=== PATIENT | female | born 1950 | race Caucasian/White ===

== ENCOUNTER → 2016-06-24 | Outpatient (CLI) | payer OTHER ==
[~2016-06-24] MED LIST: IOPAMIDOL (ISOVUE-300) 100 ML BTL IV ONE
--- NOTE | 2016-06-24 11:34 | DX ---
Chest, Two Views - June 24, 2016, at 0938 hours History: Cervical carcinoma, pleural effusion. Comparison: Outside CT chest April 2016. Findings: Cardiac silhouette is within normal range. Residual pleuroparenchymal opacity in the left l ower lobe markedly improved since the prior study from April 2016. Resolution of previous right pl eural effusion. Scarring noted in the right upper lobe. No mediastinal shift. Impression: 1. Significant improvement with residual pleuroparenchymal opacity in the left lower lobe opacifying 30% of the left lung. 2. Resolution of right pleural effusion. 3. Recommend follow up until clear.
--- NOTE | 2016-06-24 12:31 | CT ---
CT Scan of the Abdomen and Pelvis (With Contrast) at 1008 hours History: Cervical carcinoma with metastasis status post chemotherapy and surgery. Comparison: CT April 2016 from outside institution. Technique: Axial computed tomographic images of the abdomen and pelvis were obtained with the unevent ful intravenous administration of 80 mL Isovue-300 contrast. Additional oral contrast. Dose reduction techniques were utilized. CT Abdomen Findings: Lung bases: Significant decrease in size of previous left pleural effusion, with residual complex lef t base pleural effusion measuring 8.4 x 4 cm with thick wall, probably representing a loculated resid ual effusion. Left lower lobe opacity representing atelectasis or pneumonitis. Resolution of previous right pleural effusion at the lung base.. Liver: Two right subdiaphragmatic cystic foci, which appear new measuring 11 x 8 mm, on image 45 seri es 3, which may represent loculated fluid. No definite hepatic metastasis. A small amount of ascites around the right anterior aspect of the liver.. Biliary system: No obstruction. Spleen: Normal. Pancreas: Normal. Adrenals: Normal. Kidneys: No obstruction or solid masses.. Abdominal Aorta: Mild atherosclerotic abdominal aorta without aneurysm. Oral contrast in the stomach and small bowel. Moderate stool in the colon. No pneumoperitoneum. Small amount of ascites in the right paracolic gutter. A few mesenteric lymph nodes measuring up to [address] Pelvis Findings: In the left side of the pelvis, there are two cystic lesions, with the largest la terally measuring 40 x 30 mm, previously measuring 40 x 35 mm, slightly smaller. In the left side of the pelvis medially, there is a second fluid collection, also on image 183 of series 3, measuring 20 x 20 mm, previously measuring 25 x 25 mm. Previous study demonstrated a third cystic lesion more infe riorly in the left side of the pelvis, which is no longer identified. No significant pelvic adenopath y. No destructive osseous lesions. Impression: 1. Interval improvement with decrease in size of left pleural effusion, now demonstrating a residual loculated left lower lobe posterior pleural effusion measuring 8.4 x 4 cm with adjacent left lower lo be atelectasis or pneumonitis. 2. Resolution of previous right pleural effusion. 3. Small amount of residual ascites in the right side of the abdomen. 4. Two cystic mesenteric lesions in the left side of the pelvis, which appears smaller since April 2016, probably representing slight improvement in mesenteric carcinomatosis versus loculated postsur gical hematoma or seroma. 5. No new abdominal or pelvic metastasis. 6. Mild constipation without bowel obstruction.
== END ==
LOC: FIMAGING 07:59
DX: Z85.41 Personal history of malignant neoplasm of cervix uteri (principal); J90 Pleural effusion, not elsewhere classified; R91.8 Other nonspecific abnormal finding of lung field; R93.5 Abnormal findings on diagnostic imaging of other abdominal regions, including retroperitoneum; K59.00 Constipation, unspecified; J98.11 Atelectasis
CPT/HCPCS: 71020; 74177; Q9967

== ENCOUNTER → 2016-09-24 | Outpatient (CLI) | payer OTHER | LOC: CIMAGING 08:49 | DX: R18.8 Other ascites (principal); Z85.41 Personal history of malignant neoplasm of cervix uteri | CPT/HCPCS: 76700-PO ==

== ENCOUNTER → 2016-10-07 | Outpatient (CLI) | payer OTHER ==
[~2016-10-07] MED LIST changes: -IOPAMIDOL (ISOVUE-300) 100 ML BTL IV ONE; +IOPAMIDOL (ISOVUE-300) 100 ML BTL ONE
== END ==
LOC: FIMAGING 11:06
DX: C80.0 Disseminated malignant neoplasm, unspecified (principal); R18.8 Other ascites; R10.12 Left upper quadrant pain; Z85.41 Personal history of malignant neoplasm of cervix uteri; Z85.43 Personal history of malignant neoplasm of ovary
CPT/HCPCS: 74177; Q9967

== ENCOUNTER → 2016-10-08 | Outpatient (CLI) | payer OTHER ==
[~2016-10-08] MED LIST changes: -IOPAMIDOL (ISOVUE-300) 100 ML BTL ONE; +LIDOCAINE 1% 30 ML SDV ONE; +NA BICARBONATE 50 MEQ/50 ML VIAL ONE
[2016-10-08 17:14] LABS: GLUCOSE, PERITONEAL FLUID 51 mg/dL (55-113)
== END ==
LOC: FIMAGING 14:10
PROVIDERS: ATTEND Radiology Diagnostic Radiology
PROC: 0W9F3ZZ Drainage of Abdominal Wall, Percutaneous Approach (ICD-10-PCS; principal; 2016-10-08)
DX: R18.0 Malignant ascites (principal); C53.9 Malignant neoplasm of cervix uteri, unspecified; C79.9 Secondary malignant neoplasm of unspecified site

== ENCOUNTER → 2016-10-14 | Outpatient (CLI) | payer OTHER ==
[~2016-10-14] MED LIST changes: -LIDOCAINE 1% 30 ML SDV ONE; +LIDOCAINE 1% 300 MG/30 ML SDV ONE
== END ==
LOC: FIMAGING 12:26
PROC: 0W9F3ZZ Drainage of Abdominal Wall, Percutaneous Approach (ICD-10-PCS; principal; 2016-10-14)
DX: R18.0 Malignant ascites (principal); R10.9 Unspecified abdominal pain; Z85.43 Personal history of malignant neoplasm of ovary; Z85.41 Personal history of malignant neoplasm of cervix uteri

== ENCOUNTER → 2016-11-25 | Outpatient (CLI) | payer OTHER | LOC: FIMAGING 13:07 | DX: R19.07 Generalized intra-abdominal and pelvic swelling, mass and lump (principal); C56.9 Malignant neoplasm of unspecified ovary; C79.82 Secondary malignant neoplasm of genital organs ==

== ENCOUNTER → 2016-12-03 | Outpatient (CLI) | payer OTHER ==
[~2016-12-03] MED LIST changes: +IOPAMIDOL (ISOVUE-300) 100 ML BTL ONE; -LIDOCAINE 1% 300 MG/30 ML SDV ONE; -NA BICARBONATE 50 MEQ/50 ML VIAL ONE
== END ==
LOC: FIMAGING 13:44
DX: K76.9 Liver disease, unspecified (principal); R18.8 Other ascites; K59.00 Constipation, unspecified; J18.9 Pneumonia, unspecified organism; I70.0 Atherosclerosis of aorta
CPT/HCPCS: 74177; Q9967

== ENCOUNTER → 2016-12-30 | Outpatient (CLI) | payer OTHER | LOC: FIMAGING 14:34 | DX: C53.9 Malignant neoplasm of cervix uteri, unspecified (principal); C79.9 Secondary malignant neoplasm of unspecified site ==

== ENCOUNTER → 2017-01-04 | Outpatient (CLI) | payer OTHER ==
[~2017-01-04] MED LIST changes: +GENTAMICIN SULFATE IV ONE; -IOPAMIDOL (ISOVUE-300) 100 ML BTL ONE; +NS IV ONE
== END ==
LOC: FIMAGING 07:37
PROVIDERS: ATTEND Radiology Diagnostic Radiology
PROC: 0WPGX0Z Removal of Drainage Device from Peritoneal Cavity, External Approach (ICD-10-PCS; principal; 2017-01-04)
DX: Z48.03 Encounter for change or removal of drains (principal); R18.8 Other ascites

== ENCOUNTER → 2017-03-08 | Outpatient (CLI) | payer OTHER | LOC: FIMAGING 18:01 → EDSTATUS 18:02 | DX: R07.81 Pleurodynia (principal) ==

== ENCOUNTER → 2017-03-09 | Outpatient (CLI) | payer OTHER ==
[~2017-03-09] MED LIST changes: -GENTAMICIN SULFATE IV ONE; +LIDOCAINE 1% 300 MG/30 ML SDV ONE; -NS IV ONE
== END ==
LOC: FIMAGING 13:57
PROC: 0W9F30Z Drainage of Abdominal Wall with Drainage Device, Percutaneous Approach (ICD-10-PCS; principal; 2017-03-09)
DX: R18.8 Other ascites (principal)

== ENCOUNTER → 2017-03-26 | Outpatient (CLI) | payer OTHER ==
[~2017-03-26] MED LIST changes: +IOPAMIDOL (ISOVUE-300) 100 ML BTL ONE; -LIDOCAINE 1% 300 MG/30 ML SDV ONE
== END ==
LOC: CIMAGING 13:26
DX: C53.9 Malignant neoplasm of cervix uteri, unspecified (principal); R18.0 Malignant ascites; M48.56XA Collapsed vertebra, not elsewhere classified, lumbar region, initial encounter for fracture
CPT/HCPCS: 74177; Q9967

== ENCOUNTER → 2017-04-14 | Outpatient (CLI) | payer OTHER ==
[~2017-04-14] MED LIST changes: -IOPAMIDOL (ISOVUE-300) 100 ML BTL ONE; +LIDOCAINE 1% 300 MG/30 ML SDV ONE
[2017-04-14 17:28] LABS: GLUCOSE, PERITONEAL FLUID < 20 mg/dL (55-113)
[2017-04-14 18:16] LABS: LD, PERITONEAL FLUID 4596 IU/L
== END ==
LOC: FIMAGING 14:33
PROC: 0W9F3ZZ Drainage of Abdominal Wall, Percutaneous Approach (ICD-10-PCS; principal; 2017-04-14)
DX: R18.0 Malignant ascites (principal); C53.9 Malignant neoplasm of cervix uteri, unspecified

== ENCOUNTER → 2017-04-26 | Outpatient (CLI) | payer OTHER | LOC: FIMAGING 09:36 | DX: R18.0 Malignant ascites (principal); N13.39 Other hydronephrosis; C53.9 Malignant neoplasm of cervix uteri, unspecified ==

== ENCOUNTER → 2017-05-11 | Outpatient (CLI) | payer OTHER | LOC: FIMAGING 12:17 | PROC: 0W9F3ZZ Drainage of Abdominal Wall, Percutaneous Approach (ICD-10-PCS; principal; 2017-05-11) | DX: R18.0 Malignant ascites (principal); C53.9 Malignant neoplasm of cervix uteri, unspecified; M54.9 Dorsalgia, unspecified ==

== ENCOUNTER → 2017-06-03 | Outpatient (CLI) | payer OTHER | LOC: FIMAGING 14:32 | PROC: 0W9F3ZZ Drainage of Abdominal Wall, Percutaneous Approach (ICD-10-PCS; principal; 2017-06-03) | DX: R18.0 Malignant ascites (principal); C53.9 Malignant neoplasm of cervix uteri, unspecified; M54.9 Dorsalgia, unspecified ==

== ENCOUNTER → 2017-06-21 | Outpatient (CLI) | payer OTHER | LOC: FIMAGING 14:03 | PROC: 0W9G3ZZ Drainage of Peritoneal Cavity, Percutaneous Approach (ICD-10-PCS; principal; 2017-06-21) | DX: R18.8 Other ascites (principal); C53.9 Malignant neoplasm of cervix uteri, unspecified ==

== ENCOUNTER → 2017-07-12 | Outpatient (CLI) | payer OTHER | LOC: FIMAGING 14:12 | PROVIDERS: ATTEND Internal Medicine Hematology & Oncology | PROC: 0W9F3ZZ Drainage of Abdominal Wall, Percutaneous Approach (ICD-10-PCS; principal; 2017-07-12) | DX: R18.8 Other ascites (principal); C53.9 Malignant neoplasm of cervix uteri, unspecified; M54.9 Dorsalgia, unspecified ==

== ENCOUNTER → 2017-07-27 | Outpatient (CLI) | payer OTHER | LOC: FIMAGING 14:34 | PROVIDERS: ATTEND Physician Assistant | PROC: 0W9F3ZZ Drainage of Abdominal Wall, Percutaneous Approach (ICD-10-PCS; principal; 2017-07-27) | DX: R18.0 Malignant ascites (principal); C53.9 Malignant neoplasm of cervix uteri, unspecified ==

== ENCOUNTER 2017-08-09 02:03 | Observation (INO) | payer OTHER ==
--- NOTE | 2017-08-09 02:11 | EDPHY ---
H & P Time Seen by Provider: 08/09/17 02:15 HPI/ROS: HPI CHIEF COMPLAINT: Possible small bowel obstruction HISTORY OF PRESENT ILLNESS: Patient is 66 year-old female she presents emergency room with abdominal bloating abdominal distension nausea and vomiting and abdominal pain. She reports this all started on she knows the abdomen is getting more swollen. She had some generalized discomfort that is progressed. She has had nausea vomiting vomiting multiple times nonbilious nonbloody. She is due at 10:00 a.m. Tomorrow morning to have a paracentesis to remove the ascites. She gets this done every month. Has multiple Ls of fluid removed. Currently describes her pain is diffuse, crampy 10/31. Past Medical History: cervical cancer, previous SBO, protein malnutrition, ascites Past Surgical History: Multiple abdominal surgeries. Social History: Denies drugs alcohol tobacco products Family History: Noncontributory ROS REVIEW OF SYSTEMS: A comprehensive 10 point review of systems is otherwise negative aside from elements mentioned in the history of present illness. Exam Constitutional appears well nontoxic no acute distress triage nursing summary reviewed, vital signs reviewed, awake/alert. Eyes normal conjunctivae and sclera, EOMI, PERRLA. HENT normal inspection, atraumatic, moist mucus membranes, no epistaxis, neck supple/ no meningismus, no raccoon eyes. Respiratory clear to auscultation bilaterally, normal breath sounds, no respiratory distress, no wheezing. Cardiovascular rate normal, regular rhythm, no murmur, no edema, distal pulses normal. Gastrointestinal distended abdomen, ascites positive, fluid wave positive, mildly tender diffusely no peritoneal signs. Genitourinary no CVA tenderness. Musculoskeletal no midline vertebral tenderness, full range of motion, no calf swelling, no tenderness of extremities, no meningismus, good pulses, neurovascularly intact. Skin pink, warm, & dry, no rash, skin atraumatic. Neurologic awake, alert and oriented x 3, AAOx3, moves all 4 extremities equally, motor intact, sensory intact, CN II-XII intact, normal cerebellar, normal vision, normal speech. Psychiatric normal mood/affect. Heme/Lymph/Immune no lymphadenopathy. Differential diagnosis includes but is not limited to and in no particular order : Bowel obstruction, SBP, appendicitis, gallbladder disease, diverticulitis, colitis, enteritis, perforated viscus, gastritis, GERD, esophagitis, urinary tract infection, pyelonephritis, kidney stones, ascites Medical Decision Making: Plan for this patient IV establishment blood draw, check white count, KUB of the abdomen rule out abnormal bowel gas pattern, may need to proceed with CT scan abdomen pelvis with IV contrast, IV Dilaudid for pain control IV Zofran nausea, IV fluids. Re-evaluate. Re-evaluation: KUB reviewed. No evidence of abnormal bowel gas pattern. Will proceed with CT abdomen pelvis with IV contrast. Rule out SBO. CT scan abdomen pelvis with IV contrast reviewed. This shows rather large amount of ascites. Loculated. He does have extrinsic compression on the bowels. No actual SBO. Her most likely cause of nausea vomiting abdominal distention has significant ascites. She is due for paracentesis at 10:00 a.m.. Patient be admitted to the hospitalist service for observation pain control IV fluids and further care of her Ascities. Spoke with Hospalist Dr. Garcia, Agrees to admit. Source: Patient - Medical/Surgical History Hx Asthma: No Hx Chronic Respiratory Disease: No Hx Diabetes: No Hx Cardiac Disease: No Hx Renal Disease: No Hx Cirrhosis: No Hx Alcoholism: No Hx HIV/AIDS: No Hx Splenectomy or Spleen Trauma: No Other PMH: ovarian ca. acities. tonsils - Social History Smoking Status: Never smoked Constitutional: Initial Vital Signs Temperature (C) 36.4 C 08/09/17 02:10 Heart Rate 91 08/09/17 02:10 Respiratory Rate 18 08/09/17 02:10 Blood Pressure 151/105 H 08/09/17 02:10 O2 Sat (%) 98 08/09/17 02:10 O2 Delivery Mode Room Air Allergies/Adverse Reactions: Sulfa (Sulfonamide Antibiotics) Allergy (Severe, Verified 02/23/16 21:59) Rash Home Medications: Medication Instructions Recorded Thyroid,Pork [Westhroid] 32.5 mg PO DAILY 02/23/16 Progesterone Cream 08/09/17 Supliments 08/09/17 Medical Decision Making - Data Points Laboratory Results: Laboratory Results 08/09/17 02:35 08/09/17 02:35 08/09/17 08/09/17 08/09/17 02:35 02:35 02:35 WBC 12.74 10^3/uL H 10^3/uL (3.80-9.50) RBC 4.66 10^6/uL 10^6/uL (4.18-5.33) Hgb 14.3 g/dL g/dL (12.6-16.3) Hct 41.6 % % (38.0-47.0) MCV 89.3 fL fL (81.5-99.8) MCH 30.7 pg pg (27.9-34.1) MCHC 34.4 g/dL g/dL (32.4-36.7) RDW 13.0 % % (11.5-15.2) Plt Count 437 10^3/uL H 10^3/uL (150-400) MPV 9.5 fL fL (8.7-11.7) Neut % (Auto) 86.9 % H % (39.3-74.2) Lymph % (Auto) 8.0 % L % (15.0-45.0) Gibson % (Auto) 4.6 % % (4.5-13.0) Eos % (Auto) 0.0 % L % (0.6-7.6) Baso % (Auto) 0.2 % L % (0.3-1.7) Nucleat RBC Rel Count 0.0 % % (0.0-0.2) Absolute Neuts (auto) 11.06 10^3/uL H 10^3/uL (1.70-6.50) Absolute Lymphs (auto) 1.02 10^3/uL 10^3/uL (1.00-3.00) Absolute Monos (auto) 0.59 10^3/uL 10^3/uL (0.30-0.80) Absolute Eos (auto) 0.00 10^3/uL L 10^3/uL (0.03-0.40) Absolute Basos (auto) 0.03 10^3/uL 10^3/uL (0.02-0.10) Absolute Nucleated RBC 0.00 10^3/uL 10^3/uL (0-0.01) Immature Gran % 0.3 % % (0.0-1.1) Immature Gran # 0.04 10^3/uL 10^3/uL (0.00-0.10) PT 15.9 SEC H SEC (12.0-15.0) INR 1.25 H (0.83-1.16) APTT 30.4 SEC SEC (23.0-38.0) VBG Lactic Acid Sodium 132 mEq/L L mEq/L (135-145) Potassium 4.2 mEq/L mEq/L (3.5-5.2) Chloride 99 mEq/L mEq/L (97-110) Carbon Dioxide 16 mEq/l L mEq/l (22-31) Anion Gap 17 mEq/L H mEq/L (8-16) BUN 19 mg/dL mg/dL (7-23) Creatinine 0.6 mg/dL mg/dL (0.6-1.0) Estimated GFR > 60 Glucose 113 mg/dL H mg/dL (70-100) Calcium 8.3 mg/dL L mg/dL (8.5-10.4) Total Bilirubin 1.1 mg/dL mg/dL (0.1-1.4) Conjugated Bilirubin 0.5 mg/dL mg/dL (0.0-0.5) Unconjugated Bilirubin 0.6 mg/dL mg/dL (0.0-1.1) AST 37 IU/L IU/L (14-46) ALT 37 IU/L IU/L (9-52) Alkaline Phosphatase 155 IU/L H IU/L (38-126) Total Protein 6.4 g/dL g/dL (6.3-8.2) Albumin 3.4 g/dL L g/dL (3.5-5.0) Lipase 36 IU/L IU/L (23-300) 08/09/17 02:35 WBC RBC Hgb Hct MCV MCH MCHC RDW Plt Count MPV Neut % (Auto) Lymph % (Auto) Gibson % (Auto) Eos % (Auto) Baso % (Auto) Nucleat RBC Rel Count Absolute Neuts (auto) Absolute Lymphs (auto) Absolute Monos (auto) Absolute Eos (auto) Absolute Basos (auto) Absolute Nucleated RBC Immature Gran % Immature Gran # PT INR APTT VBG Lactic Acid 2.6 mmol/L H mmol/L (0.7-2.1) Sodium Potassium Chloride Carbon Dioxide Anion Gap BUN Creatinine Estimated GFR Glucose Calcium Total Bilirubin Conjugated Bilirubin Unconjugated Bilirubin AST ALT Alkaline Phosphatase Total Protein Albumin Lipase Medications Given: Discontinued Medications Hydromorphone HCl (Dilaudid) 0.5 mg IVP EDNOW ONE Stop: 08/09/17 02:16 Last Admin: 08/09/17 03:10 Dose: 0.25 mg Sodium Chloride (Ns) 1,000 mls @ 0 mls/hr IV EDNOW ONE; Wide Open PRN Reason: Protocol Stop: 08/09/17 02:16 Last Admin: 08/09/17 02:46 Dose: 1,000 mls Ondansetron HCl (Zofran) 4 mg IVP EDNOW ONE Stop: 08/09/17 02:16 Last Admin: 08/09/17 02:44 Dose: 4 mg Departure - Departure Disposition: [facility] Inpatient Acute Clinical Impression: Ascites Qualifiers: Ascites type: malignant Qualified Code(s): R18.0 - Malignant ascites Nausea and vomiting Qualifiers: Vomiting type: unspecified Vomiting Intractability: non-intractable Qualified Code(s): R11.2 - Nausea with vomiting, unspecified Condition: Fair Referrals: NONE *PRIMARY CARE P,. [Primary Care Provider] - As per Instructions
[2017-08-09] MEDS ORDERED: NS 1,000 ML IV ONE (02:15)
[2017-08-09] MEDS ORDERED: HYDROmorphONE/DILAUDID 2 MG/ML INJ IVP ONE (02:15)
[2017-08-09] MEDS ORDERED: ONDANSETRON 4 MG/2 ML VIAL IVP ONE (02:15)
[2017-08-09 02:43] LABS: PLATELET COUNT 437 10^3/uL (150-400)
[2017-08-09] MEDS ORDERED: IOPAMIDOL (ISOVUE-300) 100 ML BTL ONE (03:08)
[2017-08-09 03:15] LABS: INR 1.25 (0.83-1.16); PROTIME(PATIENT) 15.9 SEC (12.0-15.0)
[2017-08-09] MEDS ORDERED: ONDANSETRON DISINTEGRATING 4 MG TAB PO PRN (03:49)
[2017-08-09] MEDS ORDERED: ACETAMINOPHEN 325 MG TAB PO PRN (03:49)
[2017-08-09] MEDS ORDERED: ONDANSETRON 4 MG/2 ML VIAL IVP PRN (03:49)
[2017-08-09] MEDS ORDERED: PROMETHAZINE HCL 25 MG/ML INJ IVP PRN (03:49)
--- NOTE | 2017-08-09 05:04 | PDGENHP ---
History and Physical - Chief Complaint Abdominal pain - History of Present Illness 66 yo F w/ hx of cervical CA presents with abdominal pain. Patient has hx of advanced disease with extensive intra-abdominal spread. She has paracentesis q2- 3 weeks to address malignant ascites. She has her next paracentesis scheduled for 10 AM today. Early this morning, however, she developed severe abdominal pain with nausea so she came to the ED. She describes this pain as different from prior episode and more similar to a prior SBO she had. CT in the ED notable for loculated ascites with extrinsic compression of the bowel, which is likely explanatory of symptoms. Patient is being admitted for pain control and paracentesis. History Information - Allergies/Home Medication List Allergies/Adverse Reactions: Sulfa (Sulfonamide Antibiotics) Allergy (Severe, Verified 02/23/16 21:59) Rash Home Medications: Thyroid,Pork [Westhroid] 32.5 mg PO DAILY 02/23/16 [Last Taken 02/23/16] Progesterone Cream 08/09/17 [Last Taken Unknown] Supliments 08/09/17 [Last Taken Unknown] I have personally reviewed and updated: family history, medical history - Past Medical History cancer - Family History Positive for: cancer (Extensive family hx of cancer) - Social History Smoking Status: Never smoked Review of Systems Review of Systems: ROS: 10pt was reviewed & negative except for what was stated in HPI & below Physical Exam Physical Exam: Temp Pulse Resp BP Pulse Ox 36.4 C 91 18 151/105 H 98 08/09/17 02:10 08/09/17 02:10 08/09/17 02:10 08/09/17 02:10 08/09/17 02:10 Constitutional: no apparent distress, not in pain, chronically ill appearing Eyes: PERRL, EOMI Ears, Nose, Mouth, Throat: moist mucous membranes, no oral mucosal ulcers Cardiovascular: regular rate and rhythym, no murmur, rub, or gallop Respiratory: no respiratory distress, clear to auscultation Gastrointestinal: distension, No tenderness, No guarding, No rebound Skin: warm, normal color Musculoskeletal: full muscle strength, no muscle tenderness Neurologic: AAOx3, CN II-XII Intact Psychiatric: interacting appropriately, not anxious Lab Data & Imaging Review 08/09/17 02:35 08/09/17 02:35 WBC 12.74 10^3/uL (3.80-9.50) H 08/09/17 02:35 RBC 4.66 10^6/uL (4.18-5.33) 08/09/17 02:35 Hgb 14.3 g/dL (12.6-16.3) 08/09/17 02:35 Hct 41.6 % (38.0-47.0) 08/09/17 02:35 MCV 89.3 fL (81.5-99.8) 08/09/17 02:35 MCH 30.7 pg (27.9-34.1) 08/09/17 02:35 MCHC 34.4 g/dL (32.4-36.7) 08/09/17 02:35 RDW 13.0 % (11.5-15.2) 08/09/17 02:35 Plt Count 437 10^3/uL (150-400) H 08/09/17 02:35 MPV 9.5 fL (8.7-11.7) 08/09/17 02:35 Neut % (Auto) 86.9 % (39.3-74.2) H 08/09/17 02:35 Lymph % (Auto) 8.0 % (15.0-45.0) L 08/09/17 02:35 Kane % (Auto) 4.6 % (4.5-13.0) 08/09/17 02:35 Eos % (Auto) 0.0 % (0.6-7.6) L 08/09/17 02:35 Baso % (Auto) 0.2 % (0.3-1.7) L 08/09/17 02:35 Nucleat RBC Rel Count 0.0 % (0.0-0.2) 08/09/17 02:35 Absolute Neuts (auto) 11.06 10^3/uL (1.70-6.50) H 08/09/17 02:35 Absolute Lymphs (auto) 1.02 10^3/uL (1.00-3.00) 08/09/17 02:35 Absolute Monos (auto) 0.59 10^3/uL (0.30-0.80) 08/09/17 02:35 Absolute Eos (auto) 0.00 10^3/uL (0.03-0.40) L 08/09/17 02:35 Absolute Basos (auto) 0.03 10^3/uL (0.02-0.10) 08/09/17 02:35 Absolute Nucleated RBC 0.00 10^3/uL (0-0.01) 08/09/17 02:35 Immature Gran % 0.3 % (0.0-1.1) 08/09/17 02:35 Immature Gran # 0.04 10^3/uL (0.00-0.10) 08/09/17 02:35 PT 15.9 SEC (12.0-15.0) H 08/09/17 02:35 INR 1.25 (0.83-1.16) H 08/09/17 02:35 APTT 30.4 SEC (23.0-38.0) 08/09/17 02:35 VBG Lactic Acid 2.6 mmol/L (0.7-2.1) H 08/09/17 02:35 Sodium 132 mEq/L (135-145) L 08/09/17 02:35 Potassium 4.2 mEq/L (3.5-5.2) 08/09/17 02:35 Chloride 99 mEq/L (97-110) 08/09/17 02:35 Carbon Dioxide 16 mEq/l (22-31) L 08/09/17 02:35 Anion Gap 17 mEq/L (8-16) H 08/09/17 02:35 BUN 19 mg/dL (7-23) 08/09/17 02:35 Creatinine 0.6 mg/dL (0.6-1.0) 08/09/17 02:35 Estimated GFR > 60 08/09/17 02:35 Glucose 113 mg/dL (70-100) H 08/09/17 02:35 Calcium 8.3 mg/dL (8.5-10.4) L 08/09/17 02:35 Total Bilirubin 1.1 mg/dL (0.1-1.4) 08/09/17 02:35 Conjugated Bilirubin 0.5 mg/dL (0.0-0.5) 08/09/17 02:35 Unconjugated Bilirubin 0.6 mg/dL (0.0-1.1) 08/09/17 02:35 AST 37 IU/L (14-46) 08/09/17 02:35 ALT 37 IU/L (9-52) 08/09/17 02:35 Alkaline Phosphatase 155 IU/L (38-126) H 08/09/17 02:35 Total Protein 6.4 g/dL (6.3-8.2) 08/09/17 02:35 Albumin 3.4 g/dL (3.5-5.0) L 08/09/17 02:35 Lipase 36 IU/L (23-300) 08/09/17 02:35 Imaging Review: CT A/P (prelim) Multiloculated ascites with mass effect RT hydro No danish bowel obstruction, extrinsic compression LT basilar atelectasis Called to ER @ 0340 hrs Assessment & Plan Assessment: 66 yo F w/ cervical CA presents with abdominal pain 2/2 malignant ascites. Plan: 1. Abdominal pain - Per CT, most likely due to extrinsic compression of bowel from extensive, loculated malignant ascites. Patient usually receives paracentesis on outpatient basis q2-3 weeks. She had an appointment scheduled for 10 AM but developed severe pain early this morning. - Morphine PRN for pain control - IR consult placed for paracentesis 2. Cervical CA - With extensive intra-abdominal spread and malignant ascites. She has had chemotherapy and radiation in the past with limited success. She is currently looking to enroll in a clinical trial. She also uses alternative therapies such as coffee enemas and ozone saunas. 3. Hyponatremia - Mild, likely 2/2 dehydration. 4. Lactic acidosis - Likely 2/2 volume depletion, now s/p IVF. 5. Leukocytosis - No s/s of infection; will have IR send ascitic fluid for culture just in case. Diet - Clears for now, ADAT Code - Full Ppx - SCDs noting likely procedure Dispo - Admit under observation status
[2017-08-09] MEDS ORDERED: LIDOCAINE 1% 300 MG/30 ML SDV ONE (09:47)
--- NOTE | 2017-08-09 10:47 | PDRADPN ---
Radiology Procedure Note Date of Procedure: 08/09/17 Radiologist: Adam Grossman Anesthesia: Local (Specify) Pre-op Diagnosis: malignant ascites Post-op Diagnosis: same Indication: therapeutic Procedure: paracentesis Finding(s): extensively loculated fluid Inf/Abcess present in the surg proc area at time of surgery?: No Complications: none
[2017-08-09] MEDS: oxyCODONE IR 5 MG TAB PO PRN ×2 (12:05→22:52)
[2017-08-09] MEDS: THYROID PORK 32.5 MG PO SCH (12:08)
--- NOTE | 2017-08-09 14:06 | ASMTCMCOM ---
CM Note CM Note Notes: Chart reviewed. 66 Year old female admitted via ED with abdominal pain. She has HX of cervical cancer and malignant ascites and has had multiple paracentesis's in the past. No therapies ordered at this time. CM to follow for possible needs. Date Signed: 08/09/2017 02:06 PM Electronically Signed By:Tiny Quesada RN
--- NOTE | 2017-08-09 16:32 | HOSPPROG ---
Hospitalist Progress Note Assessment/Plan: DIAGNOSES: -abdominal pain due to increasing ascites with history of ongoing malignant ascites -metastatic ovarian cancer -metabolic acidosis, resolved She has now had paracentesis of 2 pockets of here low multiloculated malignant ascites. She had fair volume removed from each pocket and there is some relief from pain but she still rating her pain at 4/10. She has no febrile symptoms. There was some bloody notice in particularly in the 1 pocket but that pocket also had 880 white blood cells. The number of white blood cells might be consistent with just having blood in the fluid compared the red blood cell count , but she does have an i predominance of neutrophils in that pocket at 79%. This seems to me unlikely to be infected but with a predominance of neutrophils like that will follow closely. She has had higher white blood cell counts in the past that were not associated with infection, but these were not neutrophil predominant fluids in the past. PLANS: -continue to titrate pain management -attempt to resume a diet see issues able to keep food and drink down -follow for any signs of fever or other signs of infection SUBJECTIVE: Patient still with pain but improved notably after her paracentesis OBJECTIVE Vitals reviewed: Stable without fever Software Lead, my review: Exam: alert oriented skin warm dry color ok resps not labored lungs clear BSs heart regular abd soft but diffusely distended and diffusely tender, no guarding or rebound, bowel sounds present limbs warm, no edema iv site ok I had metabolic panel repeated and her metabolic acidosis has now resolved Objective: Vital Signs Temp Pulse Resp BP Pulse Ox 36.5 C 77 18 106/66 95 08/09/17 16:00 08/09/17 16:00 08/09/17 16:00 08/09/17 16:00 08/09/17 16:00 Microbiology 08/09/17 10:50 Gram Stain - Final Peritoneal Fluid - Aspirate 08/09/17 10:50 Gram Stain - Final Peritoneal Fluid - Aspirate Laboratory Results 08/09/17 11:20 08/08/17 08/09/17 08/10/17 06:59 06:59 06:59 Intake Total 1000 Balance 1000 PT 15.9 SEC (12.0-15.0) H 08/09/17 02:35 INR 1.25 (0.83-1.16) H 08/09/17 02:35 ICD10 Worksheet Patient Problems: Problems Problem Status Onset Ascites Acute Nausea and vomiting Acute SBO (small bowel obstruction) Acute
[2017-08-09] MEDS ORDERED: PROGESTERONE TP SCH (21:00)
[2017-08-10 05:03] LABS: PLATELET COUNT 325 10^3/uL (150-400)
[2017-08-10] MEDS: THYROID PORK 32.5 MG PO SCH (09:49)
[2017-08-10 15:06] LABS: PLATELET COUNT 335 10^3/uL (150-400)
[2017-08-10 15:56] VITALS: BP 110/69; PULSE 80; RESP 16; TEMP 97.7; O2SAT 95
[2017-08-10] MEDS: oxyCODONE IR 5 MG TAB PO PRN (16:37)
--- NOTE | 2017-08-10 17:56 | PDDCSUM ---
Discharge Summary Discharge Summary: DISCHARGE DIAGNOSES: -diffuse abdominal pain, multifactorial -enlarging malignant ascites effusion causing abdominal pain and digestive symptoms -constipation -diffuse metastatic ovarian carcinoma -med about a acidosis, resolved -anemia of malignancy and chemotherapy, stable PROCEDURES: CT scan of abdomen and pelvis with contrast Ultrasound-guided paracentesis for 1500 mL from 1 pocket and 600 mL from from a 2nd loculated collection pocket HOSPITAL COURSE SUMMARY: This patient with longstanding ovarian carcinoma and ascites comes in the hospital with increasing abdominal bloating and pain, constipation nausea vomiting. She had increasing ascites. She has previous history of multiple loculations of malignant ascites fluid and she has had multiple paracenteses here and elsewhere. At this time she did not appear infected or septic clinically at the bedside. She underwent paracentesis of her 2 largest pocket shielding 1500 mL from 1 in 600 from the other. Each of these fluid collections was somewhat bloody, and each with white blood cells new medically consistent with what would be expected from the amount of red blood cells. 1 of the pockets did have a predominance of neutrophils but so far Gram stain is negative and cultures have not grown any organisms, she is not having fever. The patient feels quite notably better after paracentesis though still has some bloating and discomfort. She is eating and drinking well. [place] [address] is down to 7000. She has not received any antibiotics here and it is not highly suspected that she has infection. However her final culture results from the fluid cavities is pending. We are at just under 48 hr from when these fluid collections were obtained at this time. PENDING TEST RESULTS: Final reading of 48 hr cultures from peritoneal fluid MEDICATION CHANGES: Addition of p.r.n. Tramadol for pain Addition of p.r.n. Zofran for nausea FOLLOW-UP PLAN: With her oncologist within the next 1-2 weeks The patient is instructed to a seek follow-up care promptly for any fevers, inability to maintain hydration, or any other onset of concerning or intolerable pain. Greater than 35 minutes bedside and care coordination time today
== END 2017-08-10 19:50 | disposition home or self-care (01) ==
LOC: F1N 08:06
PROVIDERS: ADMIT Student in an Organized Health Care Education/Training Program; ATTEND Internal Medicine
PROC: 0W9F3ZZ Drainage of Abdominal Wall, Percutaneous Approach (ICD-10-PCS; principal; 2017-08-09)
DX: C56.9 Malignant neoplasm of unspecified ovary (principal); R18.0 Malignant ascites; E87.2 Acidosis; E87.1 Hypo-osmolality and hyponatremia; E86.9 Volume depletion, unspecified; D72.829 Elevated white blood cell count, unspecified; D64.81 Anemia due to antineoplastic chemotherapy; K59.00 Constipation, unspecified; Z85.41 Personal history of malignant neoplasm of cervix uteri; Z88.2 Allergy status to sulfonamides
CPT/HCPCS: 49083; 74018; 74177; 96361; 96374; 96375; 99285; G0378; J1170; J2405; Q9967

== ENCOUNTER → 2017-09-06 | Outpatient (CLI) | payer OTHER ==
--- NOTE | 2017-09-06 18:23 | PDRADPN ---
Radiology Procedure Note Date of Procedure: 09/06/17 Radiologist: Adam Grossman Anesthesia: Local (Specify) Pre-op Diagnosis: recurrent ascites Post-op Diagnosis: same Indication: therapeutic Procedure: bilateral paracentesis Finding(s): 2.2L total Inf/Abcess present in the surg proc area at time of surgery?: No Complications: none
== END ==
LOC: FIMAGING 09:43
PROVIDERS: ATTEND Radiology Diagnostic Radiology
PROC: BW40ZZZ Ultrasonography of Abdomen (ICD-10-PCS; principal; 2017-09-06)
PROC: 0W9G3ZZ Drainage of Peritoneal Cavity, Percutaneous Approach (ICD-10-PCS; principal; 2017-09-06)
DX: R18.8 Other ascites (principal); C53.9 Malignant neoplasm of cervix uteri, unspecified; M54.9 Dorsalgia, unspecified

== ENCOUNTER → 2017-09-14 | Outpatient (CLI) | payer OTHER | LOC: FIMAGING 14:18 | PROC: 0W9F3ZZ Drainage of Abdominal Wall, Percutaneous Approach (ICD-10-PCS; principal; 2017-09-14) | DX: R18.8 Other ascites (principal); C53.9 Malignant neoplasm of cervix uteri, unspecified; M54.9 Dorsalgia, unspecified ==

== ENCOUNTER 2017-09-19 16:38 | Inpatient (IN) | payer OTHER ==
--- NOTE | 2017-09-19 16:49 | EDPHY ---
H & P Stated Complaint: HX CANCER/ASCITIS/ABD PAIN Time Seen by Provider: 09/19/17 16:47 HPI/ROS: HPI: This is a 66-year-old female who presents with Chief Complaint: Abdominal pain, nausea, vomiting Location: GI Quality: Abdominal pain, nausea, vomiting Duration: Today Signs and Symptoms: no fever, + nausea, + vomiting, no hematemesis, no blood in stool, + abdominal bloating, no diarrhea, no back pain, no urinary symptoms, no vaginal bleeding/discharge, no indigestion, no chest pain, no shortness of breath Timing: Worsening, acute on chronic Severity: 10 out 10 Context: Patient has a history of cervical cancer, malignant ascites requiring paracentesis every 2-3 weeks presents with complaints of acute on chronic severe generalized abdominal pain associated with ascites and abdominal bloating. Patient actually came into the emergency room today because she vomited 5 times. She normally is nauseous. She has Zofran but has not used today. She smoked marijuana which helps relieve her symptoms. She was seen by her primary care provider last week and given oxycodone but this is not helping her pain. She also has fentanyl suppositories but has not used these in quite some time. Patient reports that she is scheduled for outpatient paracentesis on Wednesday. She is extremely tearful and is requesting admission for pain control and to have hers paracentesis performed earlier. Modifying Factors: See above Comment: ROS: see HPI Constitutional: No fever, no chills, no weight loss Eyes: No blurred vision Respiratory: No shortness of breath, no cough Cardiovascular: No chest pain, no palpitations Gastrointestinal: No nausea, no vomiting, no diarrhea, no hematemesis, no blood in stool Genitourinary: No dysuria, no blood in urine Extremities: No myalgias, no edema Neurologic: No weakness, no numbness Skin: No rashes, no petechiae Hematologic: No bruising, no bleeding MEDICAL/SURGICAL/SOCIAL HISTORY: Medical history: Cervical cancer, malignant ascites. Surgical history: Tonsillectomy Social history: Lives at home. Family history noncontributory. CONSTITUTIONAL: Chronically ill appearing elderly white female, awake and alert , no obvious distress HEENT: Atraumatic and normocephalic, PERRL, EOMI. Nares patent; no rhinorrhea; no nasal mucosal edema. Tympanic membranes clear. Oropharynx clear, no exudate and dry lips and mucous membranes. Airway patent. No lymphadenopathy. No meningismus. Cardiovascular: Normal S1/S2, regular rate, regular rhythm, without murmur rub or gallop. PULMONARY/CHEST: Symmetrical and nontender. Clear to auscultation bilaterally. Good air movement. No accessory muscle usage. ABDOMEN: Soft, ascites noted; 2 Band-Aids on right flank and left flank noted from prior paracentesis, nontender, no rebound, no guarding, no peritoneal signs , no masses or organomegaly. No CVAT. EXTREMITIES: 2/2 pulses, strength 5/5, no deformities, no clubbing, no cyanosis or edema. NEUROLOGICAL: no focal neuro deficits. GCS 15. SKIN: Warm and dry, pallor, no erythema. no rash. Good capillary refill. Source: Patient, Family (Significant other) Exam Limitations: No limitations - Personal History Current Tetanus/Diphtheria Vaccine: Yes - Medical/Surgical History Hx Asthma: No Hx Chronic Respiratory Disease: No Hx Diabetes: No Hx Cardiac Disease: No Hx Renal Disease: No Hx Cirrhosis: No Hx Alcoholism: No Hx HIV/AIDS: No Hx Splenectomy or Spleen Trauma: No Other PMH: ovarian ca. acities. tonsils - Social History Smoking Status: Never smoked Constitutional: Initial Vital Signs Temperature (C) 36.7 C 09/19/17 16:45 Heart Rate 83 09/19/17 16:45 Respiratory Rate 18 09/19/17 16:45 Blood Pressure 114/85 H 09/19/17 16:45 O2 Sat (%) 93 09/19/17 16:45 O2 Delivery Mode Room Air Allergies/Adverse Reactions: Sulfa (Sulfonamide Antibiotics) Allergy (Severe, Verified 09/19/17 16:44) Rash cisplatin Allergy (Verified 09/19/17 16:44) wheat Allergy (Verified 09/19/17 16:44) Rash Home Medications: Medication Instructions Recorded Thyroid,Pork [Westhroid] 32.5 mg PO DAILY 02/23/16 Cmp Progesteron Crm 300mg/Ml 0.25 ml TP HS 08/09/17 Herbals/Supplements -Info Only 1 ea PO DAILY 08/09/17 Ondansetron Odt [Zofran Odt 4 mg 4 mg PO Q4HRS PRN #30 tab 08/10/17 (*)] traMADol HCL [Tramadol HCl] 50 mg PO Q6 #40 tablet 08/10/17 Medical Decision Making ED Course/Re-evaluation: Labs, IV fluids, IV medications, CT abdomen and pelvis scan ordered Vital signs reviewed and stable. Patient given 500 cc normal saline, IV Zofran and IV morphine 1758: Labs reviewed. No leukocytosis left shift noted. Normocytic anemia noted. No signs of sepsis/coagulopathy/JOHN/electrolyte imbalance Called by radiologist who advised that patient has malignant carcinomatosis; multiple loculated fluid collections and partial small-bowel obstruction. NPO status. 1800: ED decision to consult for admission for intractable acute on chronic abdominal pain with abdominal ascites, multiple loculated fluid collection and partial small-bowel obstruction. 1835: Spoke with hospitalist, Dr. Dakwins, who kindly agrees to admit patient and provide further care. This patient was seen under the supervision of my secondary supervising physician. I evaluated care for this patient independently. Discussed this patient with Dr. Bennett who did not see the patient. Differential Diagnosis: Abdominal pain including but not limited to appendicitis, cholecystitis, gastritis and urinary tract infection. - Data Points Laboratory Results: Laboratory Results 09/19/17 17:10 09/19/17 17:34 09/19/17 09/19/17 09/19/17 17:34 17:10 17:10 WBC RBC Hgb Hct MCV MCH MCHC RDW Plt Count MPV Neut % (Auto) Lymph % (Auto) [place] % (Auto) Eos % (Auto) Baso % (Auto) Nucleat RBC Rel Count Absolute Neuts (auto) Absolute Lymphs (auto) Absolute Monos (auto) Absolute Eos (auto) Absolute Basos (auto) Absolute Nucleated RBC Immature Gran % Immature Gran # PT 14.0 SEC SEC (12.0-15.0) INR 1.06 (0.83-1.16) APTT 32.1 SEC SEC (23.0-38.0) VBG Lactic Acid 1.5 mmol/L mmol/L (0.7-2.1) Sodium 140 mEq/L mEq/L (135-145) Potassium 3.6 mEq/L mEq/L (3.5-5.2) Chloride 106 mEq/L mEq/L (97-110) Carbon Dioxide 21 mEq/l L mEq/l (22-31) Anion Gap 13 mEq/L mEq/L (8-16) BUN 17 mg/dL mg/dL (7-23) Creatinine 0.4 mg/dL L mg/dL (0.6-1.0) Estimated GFR > 60 Glucose 115 mg/dL H mg/dL (70-100) Calcium 8.1 mg/dL L mg/dL (8.5-10.4) Total Bilirubin Conjugated Bilirubin Unconjugated Bilirubin AST ALT Alkaline Phosphatase Total Protein Albumin Lipase 09/19/17 09/19/17 17:10 17:10 WBC 8.17 10^3/uL 10^3/uL (3.80-9.50) RBC 4.00 10^6/uL L 10^6/uL (4.18-5.33) Hgb 12.0 g/dL L g/dL (12.6-16.3) Hct 35.7 % L % (38.0-47.0) MCV 89.3 fL fL (81.5-99.8) MCH 30.0 pg pg (27.9-34.1) MCHC 33.6 g/dL g/dL (32.4-36.7) RDW 14.6 % % (11.5-15.2) Plt Count 480 10^3/uL H 10^3/uL (150-400) MPV 9.2 fL fL (8.7-11.7) Neut % (Auto) 89.3 % H % (39.3-74.2) Lymph % (Auto) 7.1 % L % (15.0-45.0) [place] % (Auto) 2.7 % L % (4.5-13.0) Eos % (Auto) 0.1 % L % (0.6-7.6) Baso % (Auto) 0.2 % L % (0.3-1.7) Nucleat RBC Rel Count 0.0 % % (0.0-0.2) Absolute Neuts (auto) 7.29 10^3/uL H 10^3/uL (1.70-6.50) Absolute Lymphs (auto) 0.58 10^3/uL L 10^3/uL (1.00-3.00) Absolute Monos (auto) 0.22 10^3/uL L 10^3/uL (0.30-0.80) Absolute Eos (auto) 0.01 10^3/uL L 10^3/uL (0.03-0.40) Absolute Basos (auto) 0.02 10^3/uL 10^3/uL (0.02-0.10) Absolute Nucleated RBC 0.00 10^3/uL 10^3/uL (0-0.01) Immature Gran % 0.6 % % (0.0-1.1) Immature Gran # 0.05 10^3/uL 10^3/uL (0.00-0.10) PT INR APTT VBG Lactic Acid Sodium TNP Potassium TNP Chloride TNP Carbon Dioxide TNP Anion Gap TNP BUN TNP Creatinine TNP Estimated GFR TNP Glucose TNP Calcium TNP Total Bilirubin TNP Conjugated Bilirubin TNP Unconjugated Bilirubin TNP AST TNP ALT TNP Alkaline Phosphatase TNP Total Protein TNP Albumin TNP Lipase TNP Medications Given: Discontinued Medications Morphine Sulfate (Morphine) 6 mg IVP EDNOW ONE Stop: 09/19/17 17:10 Last Admin: 09/19/17 17:17 Dose: 4 mg Ondansetron HCl (Zofran) 4 mg IVP EDNOW ONE Stop: 09/19/17 17:10 Last Admin: 09/19/17 17:16 Dose: 4 mg Departure - Departure Disposition: [facility] Acute Clinical Impression: Ascites, malignant, Intractable generalized abdominal pain, Partial small bowel obstruction Cervical cancer Qualifiers: Malignant neoplasm of cervix location: unspecified location Qualified Code(s): C53.9 - Malignant neoplasm of cervix uteri, unspecified Condition: Fair
[2017-09-19] MEDS ORDERED: ONDANSETRON 4 MG/2 ML VIAL IVP ONE (17:09)
[2017-09-19 17:17] LABS: PLATELET COUNT 480 10^3/uL (150-400)
[2017-09-19 17:25] LABS: INR 1.06 (0.83-1.16)
[2017-09-19] MEDS ORDERED: IOPAMIDOL (ISOVUE-300) 100 ML BTL ONE (17:57)
[2017-09-19] MEDS ORDERED: ONDANSETRON 4 MG/2 ML VIAL IVP PRN (19:42)
[2017-09-19] MEDS ORDERED: ACETAMINOPHEN 325 MG TAB PO PRN (19:42)
[2017-09-19] MEDS ORDERED: HYDROmorphONE/DILAUDID 6 MG/30 ML PCA IV PRN (19:44)
[2017-09-19] MEDS ORDERED: NALOXONE HCL 0.4 MG/ML INJ IVP PRN (19:44)
[2017-09-19] MEDS: NS 1,000 ML IV SCH (21:36)
--- NOTE | 2017-09-19 23:47 | PDGENHP ---
History and Physical - Chief Complaint Abdominal pain - History of Present Illness 66 yo F w/ advanced cervical CA presents with abdominal pain and vomiting. Patient has frequent abdominal pain and distention, treated with regular paracentesis. She used to get these q2-3 weeks but now has been getting para's closer to weekly. Today she developed pain worse than usual as well as several episodes of vomiting. CT scan in the ED showed partial obstruction, possibly related to loculated ascites. She feels much better now after IVF and morphine. History Information - Allergies/Home Medication List Allergies/Adverse Reactions: Sulfa (Sulfonamide Antibiotics) Allergy (Severe, Verified 09/19/17 16:44) Rash cisplatin Allergy (Verified 09/19/17 16:44) wheat Allergy (Verified 09/19/17 16:44) Rash Home Medications: Thyroid,Pork [Westhroid] 32.5 mg PO DAILY 02/23/16 [Last Taken 09/19/17] Cmp Progesteron Crm 300mg/Ml 0.25 ml TP HS 08/09/17 [Last Taken 09/19/17] traMADol HCL [Tramadol HCl] 50 mg PO Q6 PRN 09/19/17 [Last Taken Unknown] I have personally reviewed and updated: family history, medical history - Past Medical History cancer - Family History Positive for: cancer (Extensive family hx of cancer) - Social History Smoking Status: Never smoked Review of Systems Review of Systems: ROS: 10pt was reviewed & negative except for what was stated in HPI & below Physical Exam Physical Exam: Temp Pulse Resp BP Pulse Ox 36.7 C 62 16 94/56 L 95 09/19/17 19:45 09/19/17 20:00 09/19/17 19:45 09/19/17 19:45 09/19/17 20:00 Constitutional: no apparent distress, not in pain Eyes: PERRL, EOMI Ears, Nose, Mouth, Throat: moist mucous membranes, no oral mucosal ulcers Cardiovascular: regular rate and rhythym, no murmur, rub, or gallop Respiratory: no respiratory distress, no rales or rhonchi Gastrointestinal: distension, other (Hyperactive BS), No tenderness, No guarding , No rebound Skin: warm, normal color Musculoskeletal: full muscle strength, no muscle tenderness Neurologic: AAOx3, CN II-XII Intact Psychiatric: interacting appropriately, not anxious Lab Data & Imaging Review 09/19/17 17:10 09/19/17 17:34 WBC 8.17 10^3/uL (3.80-9.50) 09/19/17 17:10 RBC 4.00 10^6/uL (4.18-5.33) L 09/19/17 17:10 Hgb 12.0 g/dL (12.6-16.3) L 09/19/17 17:10 Hct 35.7 % (38.0-47.0) L 09/19/17 17:10 MCV 89.3 fL (81.5-99.8) 09/19/17 17:10 MCH 30.0 pg (27.9-34.1) 09/19/17 17:10 MCHC 33.6 g/dL (32.4-36.7) 09/19/17 17:10 RDW 14.6 % (11.5-15.2) 09/19/17 17:10 Plt Count 480 10^3/uL (150-400) H 09/19/17 17:10 MPV 9.2 fL (8.7-11.7) 09/19/17 17:10 Neut % (Auto) 89.3 % (39.3-74.2) H 09/19/17 17:10 Lymph % (Auto) 7.1 % (15.0-45.0) L 09/19/17 17:10 [place] % (Auto) 2.7 % (4.5-13.0) L 09/19/17 17:10 Eos % (Auto) 0.1 % (0.6-7.6) L 09/19/17 17:10 Baso % (Auto) 0.2 % (0.3-1.7) L 09/19/17 17:10 Nucleat RBC Rel Count 0.0 % (0.0-0.2) 09/19/17 17:10 Absolute Neuts (auto) 7.29 10^3/uL (1.70-6.50) H 09/19/17 17:10 Absolute Lymphs (auto) 0.58 10^3/uL (1.00-3.00) L 09/19/17 17:10 Absolute Monos (auto) 0.22 10^3/uL (0.30-0.80) L 09/19/17 17:10 Absolute Eos (auto) 0.01 10^3/uL (0.03-0.40) L 09/19/17 17:10 Absolute Basos (auto) 0.02 10^3/uL (0.02-0.10) 09/19/17 17:10 Absolute Nucleated RBC 0.00 10^3/uL (0-0.01) 09/19/17 17:10 Immature Gran % 0.6 % (0.0-1.1) 09/19/17 17:10 Immature Gran # 0.05 10^3/uL (0.00-0.10) 09/19/17 17:10 PT 14.0 SEC (12.0-15.0) 09/19/17 17:10 INR 1.06 (0.83-1.16) 09/19/17 17:10 APTT 32.1 SEC (23.0-38.0) 09/19/17 17:10 VBG Lactic Acid 1.5 mmol/L (0.7-2.1) 09/19/17 17:10 Sodium 140 mEq/L (135-145) 09/19/17 17:34 Potassium 3.6 mEq/L (3.5-5.2) 09/19/17 17:34 Chloride 106 mEq/L (97-110) 09/19/17 17:34 Carbon Dioxide 21 mEq/l (22-31) L 09/19/17 17:34 Anion Gap 13 mEq/L (8-16) 09/19/17 17:34 BUN 17 mg/dL (7-23) 09/19/17 17:34 Creatinine 0.4 mg/dL (0.6-1.0) L 09/19/17 17:34 Estimated GFR > 60 09/19/17 17:34 Glucose 115 mg/dL (70-100) H 09/19/17 17:34 Calcium 8.1 mg/dL (8.5-10.4) L 09/19/17 17:34 Total Bilirubin TNP 09/19/17 17:10 Conjugated Bilirubin TNP 09/19/17 17:10 Unconjugated Bilirubin TNP 09/19/17 17:10 AST TNP 09/19/17 17:10 ALT TNP 09/19/17 17:10 Alkaline Phosphatase TNP 09/19/17 17:10 Total Protein TNP 09/19/17 17:10 Albumin TNP 09/19/17 17:10 Lipase TNP 09/19/17 17:10 Imaging Review: Imaging Impressions Abdomen CT 09/19/17 17:09 Impression: 1. Findings suggesting peritoneal mesenteric carcinomatosis. Multiple loculated fluid collections in the abdomen and pelvis compatible with loculated ascites. These loculated fluid collections have been drained with ultrasound-guided paracentesis previously, which could explain the small amount of air and one on the right. 2. Partial small bowel obstruction with distended loops of jejunum with air- fluid levels and fluid in the stomach. 3. Other chronic findings, as above. Results called and discussed with Rose Bethea PA-C on September 19, 2017 at 1839 hours. Assessment & Plan Assessment: 66 yo F w/ cervical CA p/w acute on chronic abdominal pain and vomiting likely related to known loculated ascites and new partial SBO. Plan: 1. Abdominal pain, vomiting - Likely related to partial SBO, which is probably related to pressure from loculated ascites. Now feeling much better after IVF and pain medication. - Dilaudid QC ANALYST overnight - Clear liquid diet, ADAT 2. Loculated ascites - Known issue for this patient; she receives regular paracentesis for symptom management. Her next paracentesis was planned for Wednesday. - Will request IR angelina, although patient does not know if she will have time for this prior to procedure in [place] at 12:30 PM tomorrow 3. Cervical CA - Advanced, metastatic disease. Diet - Clears, ADAT Code - Full Ppx - LMWH Dispo - Admit under observation status
[2017-09-20] MEDS: NS 1,000 ML IV SCH (04:45)
[2017-09-20 05:05] LABS: PLATELET COUNT 410 10^3/uL (150-400)
[2017-09-20] MEDS ORDERED: ENOXAPARIN 40 MG/0.4 ML SYR SC SCH (09:00)
[2017-09-20] MEDS ORDERED: traMADol 50 MG TAB PO PRN (09:50)
--- NOTE | 2017-09-20 11:09 | PDMN ---
Medical Necessity Medical necessity: Patient meets inpatient criteria per physician note and [facility] [place] -210 Intestinal Obstruction - 2 days - (presents with abd pain and vomiting; CT shows partial SBO, possibly related to loculated ascites; history of metastatic cervical cancer requiring more freq paracentesis of malignant ascites; anticipated LOS > 2 midnights for pain control, IV hydration/initially NPO for bowel rest, planned IR-guided paracentesis.)
--- NOTE | 2017-09-20 11:17 | HOSPPROG ---
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 * Loculated ascites -paracentesis today -hopeful that helps the partial SBO * Cervical cancer with peritoneal carcinomatosis -d/w Dr Montoya - oncology to consult Subjective: No flatus for over 24 hours but did have BM yesterday Objective: Vital Signs Temp Pulse Resp BP Pulse Ox 36.4 C 65 14 95/59 L 96 09/20/17 07:50 09/20/17 10:00 09/20/17 07:50 09/20/17 07:50 09/20/17 10:00 Laboratory Results 09/20/17 04:28 09/20/17 04:28 09/19/17 09/20/17 09/21/17 05:59 05:59 05:59 Intake Total 1250.2 Output Total 200 Balance 1050.2 PT 14.0 SEC (12.0-15.0) 09/19/17 17:10 INR 1.06 (0.83-1.16) 09/19/17 17:10 CT scan - loculated ascites with partial SBO - Time Spent With Patient Time Spent with Patient: greater than 35 minutes Time Spent with Patient: Greater than 35 minutes spent on this patients care, greater than 50% of time spent counseling, educating, and coordinating care regarding the above mentioned plan. - Physical Exam Constitutional: no apparent distress, appears nourished, not in pain Cardiovascular: regular rate and rhythym, no murmur, rub, or gallop Respiratory: no respiratory distress, no rales or rhonchi, clear to auscultation Gastrointestinal: soft, non-tender abdomen, ascites, distension, No hepatosplenomegally, No guarding, No rebound Skin: no rashes or abrasions, no fluctuance, no induration Neurologic: AAOx3, sensation intact bilaterally Psychiatric: interacting appropriately, not anxious, not encephalopathic, thought process linear ICD10 Worksheet Patient Problems: Problems Problem Status Onset Ascites, malignant Acute Cervical cancer Acute Intractable generalized abdominal pain Acute Partial small bowel obstruction Acute Ascites Acute Nausea and vomiting Acute SBO (small bowel obstruction) Acute
--- NOTE | 2017-09-20 14:32 | GCON ---
[f rep st] CONSULTATION The patient is a 66-year-old female who has had a long history of metastatic cervical carcinoma initi francky diagnosed in September of 2008. She has received multiple therapies including occasional chemotherapy but a fair amount of alternative therapy. She has been troubled recently by recurrent ascites and w as admitted last month with a partial small bowel obstruction which resolved. She presented and was admitted with abdominal pain and vomiting. She has been undergoing regular paracentesis more recentl y on a weekly basis. She was seen in the ER and a CT scan showed peritoneal mesenteric carcinomatosi s with multiple loculated fluid collections in the abdomen and pelvis. It also showed evidence of a partial small bowel obstruction with distended loops of jejunum with air-fluid levels in the stomach. She has been admitted for evaluation and treatment. PAST MEDICAL HISTORY: Significant for malignancy, hypothyroidism. REVIEW OF SYSTEMS: Negative for 10 points except as discussed above. PHYSICAL EXAMINATION: GENERAL: She is pleasant alert, thin female. VITAL SIGNS: Blood pressure 10 1/66, heart rate 59, temperature 98, O2 saturation 95%. NECK: I detect no cervical adenopathy. ASHLEE GS: Clear. CARDIAC: Unremarkable. ABDOMEN: Distended with hyperactive bowel sounds. EXTREMITIES : No edema. White count of 6.27, hemoglobin 9.4, hematocrit 28.3, platelets 410,000. Albumin is 2.3. IMPRESSION: Patient with metastatic cervical carcinoma and partial small bowel obstruction. PLANS: For paracentesis today and conservative treatment. Hopefully this will resolve. We had a gerry bach discussion regarding her treatment and particularly her desire to participate in a clinical trial. /[id number]/MODL
[2017-09-20] MEDS ORDERED: LIDOCAINE 1% 300 MG/30 ML SDV ONE (15:28)
--- NOTE | 2017-09-20 17:41 | ASMTCMCOM ---
CM Note CM Note Notes: Chart reviewed. Patient suffers from malignant ascites. She is schedule for a paracentesis later today and anticipates dc to home after that. She and her share that they have two young granddaughters at home and their son . They have no services in place and feel they are managing okay. The children bring them paige but the situation is admittedly stressful . CM available should needs arise. Plan: Home independent Date Signed: 09/20/2017 05:40 PM Electronically Signed By:Tiny Quesada RN
[2017-09-20] MEDS: PROGESTERONE TP SCH (21:10)
[2017-09-21 04:56] LABS: PLATELET COUNT 344 10^3/uL (150-400)
[2017-09-21] MEDS: THYROID PORK 32.5 MG PO SCH (10:08)
--- NOTE | 2017-09-21 11:09 | SOAPPROG ---
SOAP Progress Note Assessment/Plan: Assessment: 1.Metastatic cervical cancer 2. Partial SBO , she is passing some gas and feels better 3. Ascites, better post paracentesis Plan:possibly home today, advance diet as tolerated, chance of readmission high 09/21/17 11:04 Subjective: Feels better Objective: Vital Signs Temp Pulse Resp BP Pulse Ox 97.4 F 65 17 92/62 L 97 09/21/17 08:35 09/21/17 08:35 09/21/17 08:35 09/21/17 10:00 09/21/17 08:35 Laboratory Results 09/21/17 04:14 09/21/17 04:14 09/20/17 09/21/17 09/22/17 05:59 05:59 05:59 Intake Total 1250.2 3887 Output Total 200 1250 Balance 1050.2 2637 PT 14.0 SEC (12.0-15.0) 09/19/17 17:10 INR 1.06 (0.83-1.16) 09/19/17 17:10 Physical Exam - Physical Exam General Appearance: alert, cachetic Respiratory: normal breath sounds Cardiac/Chest: regular rate, rhythm Abdomen: normal bowel sounds, non-tender, distended ICD10 Worksheet Patient Problems: Problems Problem Status Onset Ascites, malignant Acute Cervical cancer Acute Intractable generalized abdominal pain Acute Partial small bowel obstruction Acute Ascites Acute Nausea and vomiting Acute SBO (small bowel obstruction) Acute
--- NOTE | 2017-09-21 13:09 | HOSPPROG ---
Hospitalist Progress Note Assessment/Plan: #Partial bowel obstruction: passing gas. No N/V. Trial liquids -taking 10-20K units Vit D that causes constipation. Advised her decrease to 2000U daily -Check K/Rosaura #Ascites: s/p paracentesis 09/20 with improved sxs #Cervical cancer with peritoneal carcinomatosis #DVT ppx: Lovenox #Disp: may DC if tolerating PO later today Subjective: No N/V. passing gas Objective: Vital Signs Temp Pulse Resp BP Pulse Ox 36.6 C 58 L 18 102/60 98 09/21/17 11:57 09/21/17 11:57 09/21/17 11:57 09/21/17 11:57 09/21/17 11:57 Laboratory Results 09/21/17 04:14 09/21/17 04:14 09/20/17 09/21/17 09/22/17 05:59 05:59 05:59 Intake Total 1250.2 3887 Output Total 200 1250 Balance 1050.2 2637 PT 14.0 SEC (12.0-15.0) 09/19/17 17:10 INR 1.06 (0.83-1.16) 09/19/17 17:10 - Physical Exam Constitutional: chronically ill appearing Eyes: PERRL Ears, Nose, Mouth, Throat: moist mucous membranes Cardiovascular: regular rate and rhythym Respiratory: no respiratory distress Gastrointestinal: distension (firm. Tinkling bowel sounds), No tenderness Genitourinary: no bladder fullness Skin: warm Musculoskeletal: full muscle strength Neurologic: AAOx3, CN II-XII Intact Psychiatric: interacting appropriately ICD10 Worksheet Patient Problems: Problems Problem Status Onset Ascites, malignant Acute Cervical cancer Acute Intractable generalized abdominal pain Acute Partial small bowel obstruction Acute Ascites Acute Nausea and vomiting Acute SBO (small bowel obstruction) Acute
[2017-09-21] MEDS: ENOXAPARIN 40 MG/0.4 ML SYR SC SCH (17:06)
[2017-09-21] MEDS: PROGESTERONE TP SCH (21:52)
[2017-09-22 08:19] VITALS: BP 109/73
[2017-09-22] MEDS: ENOXAPARIN 40 MG/0.4 ML SYR SC SCH (09:52)
[2017-09-22] MEDS: THYROID PORK 32.5 MG PO SCH (09:53)
--- NOTE | 2017-09-22 12:06 | GDS ---
[f rep st] DISCHARGE SUMMARY DISCHARGE DIAGNOSES: 1. Partial bowel obstruction. 2. Ascites, status post paracentesis. 3. Cervical cancer with peritoneal carcinomatosis. HISTORY OF PRESENT ILLNESS: A 66-year-old female with history of cervical cancer with peritoneal carcinomatosis, presenting with abdominal pain and vomiting. She receives regular paracenteses for abdominal distention. She was getting these every 2-3 weeks, but now it has been weekly. Day of admission, she developed severe pain as well as several episodes of vomiting. CT in the emergency room showed partial bowel obstruction possibly related to loculated ascites. HOSPITAL COURSE BY PROBLEM: 1. Partial bowel obstruction: She has evidence of peritoneal carcinomatosis. She is now passing gas and had bowel movements yesterday. She is tolerating full liquids. She is to advance her diet slowly. I did recommend that she decrease her dose of home vitamin D. She is taking up to 10,000 to 20,000 units a day. I explained that this can contribute to constipation. 2. Ascites: She underwent a paracentesis of left and right loculated region. She has had improved symptoms. She can follow up with her outpatient paracentesis as needed. 3. Cervical cancer with peritoneal carcinomatosis: Follow up with Oncology as previously scheduled. 4. Normocytic anemia: H and H stable. Denies any bleeding. 5. Hypoglycemia: She was not eating much at time of admission, but this is improved. She does follow a low carb diet. I recommend that she be more liberal. DISPOSITION: Patient is stable for discharge home with her . MEDICATIONS: No new medications. Recommended decreasing vitamin D dose. FOLLOWUP: Per primary oncologist. PHYSICAL EXAMINATION: VITAL SIGNS: Today, temperature 36.6, blood pressure 109 /72, heart rate 70s, respirations 17, 97% on room air. GENERAL: Sitting up in bed, no acute distress, very frail. HEENT: PERRLA. Moist mucous membranes. CV: Regular rate and rhythm. LUNGS: Clear. ABDOMEN: Mildly distended, soft. She has positive bowel sounds throughout. Mild left lower quadrant tenderness. No rebound or guarding. : No [place]. MUSCULOSKELETAL: 5/5 upper and lower extremity strength. NEUROLOGIC: 2-12 intact. PSYCH: Alert and oriented x3. Time spent on discharge greater than 35 minutes, coordinating followup and addressing diet and pain management recommendations to patient and her . /[id number]/MODL MTDD
== END 2017-09-22 11:15 | disposition home or self-care (01) | DRG 375 ==
LOC: F1N 19:40 → OBSVTOIN 19:42
PROVIDERS: ADMIT Internal Medicine; ATTEND Internal Medicine
PROC: 0W9G3ZZ Drainage of Peritoneal Cavity, Percutaneous Approach (ICD-10-PCS; principal; 2017-09-20)
DX: C78.6 Secondary malignant neoplasm of retroperitoneum and peritoneum (principal); R18.8 Other ascites; C53.9 Malignant neoplasm of cervix uteri, unspecified; E03.9 Hypothyroidism, unspecified
CPT/HCPCS: 96374; J1170; J1650; J2270; J2405; Q9967

== ENCOUNTER 2017-09-23 05:12 | Inpatient (IN) | payer OTHER ==
[2017-09-23] MEDS ORDERED: NS 1,000 ML IV ONE (05:19)
[2017-09-23] MEDS ORDERED: HYDROmorphONE/DILAUDID 2 MG/ML INJ IVP ONE (05:19)
[2017-09-23] MEDS ORDERED: ONDANSETRON 4 MG/2 ML VIAL IVP ONE (05:19)
--- NOTE | 2017-09-23 05:20 | EDPHY ---
H & P Stated Complaint: D/c yesterday, partial bowel obstruction Time Seen by Provider: 09/23/17 05:20 HPI/ROS: HPI CHIEF COMPLAINT: Nausea, vomiting, abdominal pain in waves, recent discharge HISTORY OF PRESENT ILLNESS: Patient is a 66-year-old female, she just recently admitted and discharged yesterday for partial small-bowel obstruction, ascites, she presents back to the emergency room with nausea vomiting and abdominal pain again. Patient states that around 10:00 p.m. Last night she had severe crampy diffuse abdominal pain that comes in waves. Additionally she reports she vomited. She took cannabis at home and fell asleep but then woke up around 5: 00 a.m. With nausea and abdominal pain that comes in waves. This prompted her to return to the emergency room. Currently she rates her pain 3/10. Diffuse. Crampy. Past Medical History: History partial small-bowel obstruction, ascites from cervical cancer, Past Surgical History: No recent surgery Social History: Denies daily use of alcohol or tobacco. Occasional marijuana use. Family History: Noncontributory ROS REVIEW OF SYSTEMS: A comprehensive 10 point review of systems is otherwise negative aside from elements mentioned in the history of present illness. Exam Constitutional frail, thin appearing, elderly, triage nursing summary reviewed , vital signs reviewed, awake/alert. Eyes normal conjunctivae and sclera, EOMI, PERRLA. HENT normal inspection, atraumatic, moist mucus membranes, no epistaxis, neck supple/ no meningismus, no raccoon eyes. Respiratory clear to auscultation bilaterally, normal breath sounds, no respiratory distress, no wheezing. Cardiovascular rate normal, regular rhythm, no murmur, no edema, distal pulses normal. Gastrointestinal small protuberant abdomen. No significant fluid wave on exam. Tender palpation with hyperactive bowel signs. No peritoneal signs. Genitourinary no CVA tenderness. Musculoskeletal no midline vertebral tenderness, full range of motion, no calf swelling, no tenderness of extremities, no meningismus, good pulses, neurovascularly intact. Skin pink, warm, & dry, no rash, skin atraumatic. Neurologic awake, alert and oriented x 3, AAOx3, moves all 4 extremities equally, motor intact, sensory intact, CN II-XII intact, normal cerebellar, normal vision, normal speech. Psychiatric normal mood/affect. Heme/Lymph/Immune no lymphadenopathy. Differential diagnosis includes but is not limited to and in no particular order : Bowel obstruction, appendicitis, gallbladder disease, diverticulitis, colitis , enteritis, perforated viscus, gastritis, GERD, esophagitis, urinary tract infection, pyelonephritis, kidney stones Medical Decision Making: Plan for this patient IV establishment with IV fluid bolus, IV Dilaudid for pain control, IV Zofran nausea, check basic blood work, KUB and re-evaluate. Patient may need to be readmitted to the hospital for recurrent partial small-bowel obstruction. Re-evaluation: 0608: KUB reviewed shows multiple air-fluid levels concerning for partial versus small bowel obstruction. 0632: Patient need to be readmitted to the hospital for small-bowel obstruction. She did have a CT scan abdomen pelvis with IV contrast 3 days ago. I did not repeat her CT scan. A KUB does show air-fluid levels. She is not actively vomiting. Plan will be for readmission to the hospital for IV fluids bowel rest nausea and pain control. I have updated the patient she would prefer to be admitted. I spoke with the hospitalist service Dr. Gardner who agrees to admit. Source: Patient - Personal History Current Tetanus Diphtheria and Acellular Pertussis (TDAP): Yes - Medical/Surgical History Hx Asthma: No Hx Chronic Respiratory Disease: No Hx Diabetes: No Hx Cardiac Disease: No Hx Renal Disease: No Hx Cirrhosis: No Hx Alcoholism: No Hx HIV/AIDS: No Hx Splenectomy or Spleen Trauma: No Other PMH: CERVICAL ca. acities. tonsils. SBO - Social History Smoking Status: Never smoked Constitutional: Initial Vital Signs Temperature (C) 37.0 C 09/23/17 05:13 Heart Rate 75 09/23/17 05:13 Respiratory Rate 18 09/23/17 05:13 Blood Pressure 126/71 H 09/23/17 05:13 O2 Sat (%) 96 09/23/17 05:13 O2 Delivery Mode Nasal Cannula O2 (L/minute) 2 Allergies/Adverse Reactions: Sulfa (Sulfonamide Antibiotics) Allergy (Severe, Verified 09/23/17 05:13) Rash cisplatin Allergy (Verified 09/23/17 05:13) wheat Allergy (Verified 09/23/17 05:13) Rash Home Medications: Medication Instructions Recorded Thyroid,Pork [Westhroid] 32.5 mg PO DAILY 10/02/16 Cmp Progesteron Crm 300mg/Ml 0.25 ml TP HS 08/09/17 Ondansetron Odt [Zofran Odt 4 mg 4 mg PO Q4HRS PRN #30 tab 08/10/17 (*)] traMADol HCL [Tramadol HCl] 50 mg PO Q6 PRN 09/19/17 Acetaminophen [Tylenol 325mg (*)] 650 mg PO Q4HRS PRN tab 09/22/17 Herbals/Supplements -Info Only 1 ea PO DAILY 09/23/17 Medical Decision Making - Data Points Laboratory Results: Laboratory Results 09/23/17 05:45 09/23/17 05:45 Medications Given: Enoxaparin Sodium (Lovenox) 40 mg SC DAILY NELSON Stop: 03/22/18 08:59 Last Admin: 09/25/17 08:10 Dose: Not Given Hydromorphone/Sodium Chloride (Hydromorphone) 0.2 - 0.4 mg IVP Q3HRS PRN PRN Reason: Pain, Severe Unable to Take PO Stop: 10/03/17 06:52 Last Admin: 09/25/17 00:38 Dose: 0.2 mg Ondansetron HCl (Zofran) 4 mg IVP Q4HRS PRN PRN Reason: Nausea/Vomiting, Can't Take PO Stop: 03/22/18 06:52 Last Admin: 09/24/17 20:27 Dose: 4 mg Discontinued Medications Enoxaparin Sodium (Lovenox) 40 mg SC DAILY NELSON Stop: 03/22/18 08:59 Last Admin: 09/24/17 07:22 Dose: Not Given Enoxaparin Sodium (Lovenox) 30 mg SC DAILY NELSON Stop: 03/22/18 08:59 Last Admin: 09/24/17 11:14 Dose: Not Given Hydromorphone HCl (Dilaudid) 0.5 mg IVP EDNOW ONE Stop: 09/23/17 05:20 Last Admin: 09/23/17 05:48 Dose: 0.5 mg Sodium Chloride (Ns) 1,000 mls @ 0 mls/hr IV EDNOW ONE; Wide Open PRN Reason: Protocol Stop: 09/23/17 05:20 Last Admin: 09/23/17 05:46 Dose: 1,000 mls Sodium Chloride (Ns) 1,000 mls @ 75 mls/hr IV CONT NELSON Stop: 03/22/18 06:59 Last Admin: 09/25/17 00:38 Dose: 1,000 mls Ondansetron HCl (Zofran) 4 mg IVP EDNOW ONE Stop: 09/23/17 05:20 Last Admin: 09/23/17 05:46 Dose: 4 mg Potassium Chloride (Klor-Con) 20 meq PO ONCE ONE Stop: 09/24/17 08:27 Last Admin: 09/24/17 11:14 Dose: Not Given Potassium Chloride (Klor-Con) 20 meq PO ONCE ONE Stop: 09/24/17 11:16 Last Admin: 09/24/17 14:27 Dose: Not Given Departure - Departure [facility] Clinical Impression: SBO (small bowel obstruction) Abdominal pain Qualifiers: Abdominal location: generalized Qualified Code(s): R10.84 - Generalized abdominal pain Condition: Fair
[2017-09-23 05:57] LABS: PLATELET COUNT 461 10^3/uL (150-400)
[2017-09-23 06:31] LABS: INR 1.1 (0.83-1.16); PROTIME(PATIENT) 14.4 SEC (12.0-15.0)
[2017-09-23] MEDS ORDERED: LORazepam 2 MG/ML INJ IVP PRN (06:53)
[2017-09-23] MEDS ORDERED: ONDANSETRON 4 MG/2 ML VIAL IVP PRN (06:53)
[2017-09-23] MEDS ORDERED: ACETAMINOPHEN 650 MG SUPP PR PRN (06:53)
[2017-09-23] MEDS ORDERED: HYDROmorphONE/DILAUDID 1 MG/ML INJ IVP PRN ×2 (06:53→08:43)
[2017-09-23] MEDS: NS 1,000 ML IV SCH (08:06)
[2017-09-23] MEDS: ENOXAPARIN 40 MG/0.4 ML SYR SC SCH ×2 (09:00→12:19)
--- NOTE | 2017-09-23 10:17 | GHP ---
[f rep st] HISTORY AND PHYSICAL DATE OF ADMISSION: 09/23/2017 CHIEF COMPLAINT: Partial small bowel obstruction. HISTORY OF PRESENT ILLNESS: A 66-year-old female with history of metastatic cervical cancer, periton eal carcinomatosis, who was just discharged yesterday for a small-bowel obstruction. She was doing w ell after discharge. She Markell soup for lunch, went to her 2 doctor's appointments without issue. Justin lee then developed crampy abdominal pain diffusely in the evening. It comes in waves. She had a bowel movement yesterday. She had 3 episodes of nonbloody emesis last night, thus returned to the ER. She had an abdominal CT September 19 showing a partial small bowel obstruction. She had a paracentesis 0 09/20/2017 for 2 loculated areas. REVIEW OF SYSTEMS: I completed a 10-point review of systems, negative except in HPI. PAST MEDICAL HISTORY: 1. Metastatic cervical cancer. 2. Peritoneal carcinomatosis. 3. Ascites warranting weekly paracentesis, last being 09/20/2017. PAST SURGICAL HISTORY: 1. Radical hysterectomy. 2. Tonsils and adenoidectomy. FAMILY HISTORY: Cancer throughout. SOCIAL HISTORY: Lives in [place] with her . No alcohol, tobacco or illicits. ALLERGIES: Sulfa, cisplatin, wheat. HOME MEDICATIONS: Herbal supplement, tramadol 50 mg q.6 hours p.r.n., Thyroid 32.5 mg daily, Zofran, progesterone cream, Tylenol, vitamin D 10-20,000 units daily. PHYSICAL EXAMINATION: VITAL SIGNS: Temperature 36.6, blood pressure 94/68, heart rate 60, respirati on 18, 100% on 3 L, 96 on room air. GENERAL: Frail, cachectic, no acute distress. HEENT: PERRLA. Moist mucous membranes. CV: Regular rate and rhythm. No murmurs, gallops, or rubs. LUNGS: Clear . ABDOMEN: Distended, soft, quiet bowel sounds. Mild diffuse tenderness. No rebound or guarding. : No suprapubic tenderness. MUSCULOSKELETAL: 5/5 upper lower extremity strength. SKIN: Warm, dry. NEURO: 2 through 12 intact. PSYCH: Alert and oriented x3. LABORATORY DATA: WBC 5, hemoglobin 10, hematocrit 32, platelets 461. Coags within normal. Blood ga ses 1. Sodium 133, potassium 3.6, carbon dioxide 24, creatinine 0.5, glucose 86, calcium 8. Total p rotein 5.4, albumin 2.6, lipase 22. Abdominal x-ray personally reviewed by me, air fluid levels present. ASSESSMENT AND PLAN: 1. Recurrent small bowel obstruction: Supportive care with bowel rest, IV fluids, pain control and intravenous antiemetics. She does take high-dose vitamin D daily, which I advised her to decrease do se. 2. Ascites associated with peritoneal carcinomatosis: She is requiring weekly paracenteses, last be ing September 20. Query if a PleurX catheter would be of use, but may be difficult given loculated fluid . We will talk to Oncology. 3. Cervical metastatic cancer: She is looking for clinical trials. 4. Hypovolemic hyponatremia: Replete with IV fluids. 5. Normocytic anemia: H and H is stable. No bleeding. 6. Protein caloric malnutrition: Supplements. Difficult as patient is follows a strict diet with l ow carbs. DEEP VENOUS THROMBOSIS PROPHYLAXIS: Lovenox. DISPOSITION: Patient warrants inpatient admission given recurrent small bowel obstruction, warrantin g IV fluids, bowel rest, IV opioids. /[id number]/MODL
--- NOTE | 2017-09-23 16:37 | PDMN ---
Medical Necessity Medical necessity: Patient meets inpatient criteria per physician note and MCG M -210 Intestinal Obstruction (recurrence of SBO; history of metastatic cervical cancer and peritoneal carcinomatosis, just discharged yesterday after hospitalization for SBO; anticipated LOS > 2 midnights for bowel rest, IV hydration, IV antiemetics and opioids as needed.)
[2017-09-24 05:30] LABS: PLATELET COUNT 480 10^3/uL (150-400)
[2017-09-24] MEDS: ENOXAPARIN 40 MG/0.4 ML SYR SC SCH (07:22)
[2017-09-24] MEDS ORDERED: POTASSIUM CL 20 MEQ TAB PO ONE ×2 (08:26→11:15)
--- NOTE | 2017-09-24 08:27 | HOSPPROG ---
Hospitalist Progress Note Assessment/Plan: # recurrent SBO - clinically improved - advance diet and check AXR tomorrow am # cervical ca with peritoneal carcinomatosis and recurrent ascites requiring weekly paracentesis - looking into immunotherapy as an option for treatment # weakness - d/t the above; not comfortable going home at this point - PT # dvt ppx - lovenox # dispo - possibly tomorrow pending no recurrence of SBO today and tomorrow Subjective: had two BMs today after getting craniosacral massage; +flatus; Objective: Vital Signs Temp Pulse Resp BP Pulse Ox 36.5 C 59 L 18 101/66 97 09/24/17 07:48 09/24/17 07:48 09/24/17 07:48 09/24/17 07:48 09/24/17 07:48 Laboratory Results 09/24/17 05:02 09/24/17 05:02 09/23/17 09/24/17 09/25/17 05:59 05:59 05:59 Intake Total 1900 100 Output Total 1150 150 Balance 750 -50 PT 14.4 SEC (12.0-15.0) 09/23/17 05:45 INR 1.10 (0.83-1.16) 09/23/17 05:[address] reviewed AXR personally reviewed - Physical Exam Constitutional: no apparent distress, not in pain Cardiovascular: regular rate and rhythym, no murmur, rub, or gallop Respiratory: no respiratory distress, no rales or rhonchi, clear to auscultation Gastrointestinal: other (diminished BS; mild distension, not TTP, more full on left side), No guarding, No rebound ICD10 Worksheet Patient Problems: Problems Problem Status Onset Abdominal pain Acute SBO (small bowel obstruction) Acute Ascites Acute Ascites, malignant Acute Cervical cancer Acute Intractable generalized abdominal pain Acute Nausea and vomiting Acute Partial small bowel obstruction Acute
[2017-09-24] MEDS ORDERED: ENOXAPARIN 40 MG/0.4 ML SYR SC SCH (08:31)
--- NOTE | 2017-09-24 09:47 | SOAPPROG ---
SOAP Progress Note Assessment/Plan: Assessment: 1. metastatic cervical cancer 2. recurrent bowel obstruction, readmitted 3. ascites Plan:Advance diet as tolerated, unfortunately this will be a recurring issue unless there is effective treatment for her cervical cancer which is unlikely, do not think pleurex cath will be all that helpful given loculation of fluid 09/24/17 09:43 Subjective: Feels better, had a few bowel movements Objective: Vital Signs Temp Pulse Resp BP Pulse Ox 97.7 F 59 L 18 101/66 97 09/24/17 07:48 09/24/17 07:48 09/24/17 07:48 09/24/17 07:48 09/24/17 07:48 Laboratory Results 09/24/17 05:02 09/24/17 05:02 09/23/17 09/24/17 09/25/17 05:59 05:59 05:59 Intake Total 1900 100 Output Total 1150 150 Balance 750 -50 PT 14.4 SEC (12.0-15.0) 09/23/17 05:45 INR 1.10 (0.83-1.16) 09/23/17 05:45 Physical Exam - Physical Exam General Appearance: alert, no apparent distress Respiratory: lungs clear, normal breath sounds Cardiac/Chest: regular rate, rhythm Abdomen: normal bowel sounds, non-tender, distended ICD10 Worksheet Patient Problems: Problems Problem Status Onset Abdominal pain Acute SBO (small bowel obstruction) Acute Ascites Acute Ascites, malignant Acute Cervical cancer Acute Intractable generalized abdominal pain Acute Nausea and vomiting Acute Partial small bowel obstruction Acute
--- NOTE | 2017-09-24 13:50 | ASMTCMCOM ---
CM Note CM Note Notes: Pt readmitted for pain following DC two days ago. Met with pt and [facility]. They would welcome a community-based palliative care referral to help them with pain mgmt at home. Faxed referral to [facility] who will contact them and arrange a mtg and also run benefits. Pt and also discussed the financial burden of pt's cancer dx. her advantage plan requires co-pays at each IR visit for a paracentesis and 5 days of co-pays for each hospitalization. Suggested they reach out to ins co. and hospitall to see if they could reduce the amount owed. Also made a red lipstick request. Pt had applied for supplemntal medicaid but was over the limit. Pt not medically eligible for LTC medicaid at this time. Date Signed: 09/24/2017 01:50 PM Electronically Signed By:Judy Krueger LCSW
--- NOTE | 2017-09-24 16:57 | ASMTCMCOM ---
CM Note CM Note Notes: [facility] ran pt's ins benefits and she is covered at 100%. They will see her tomorrow. Pt qualifies financially for LTC Medicaid and may qualify medically for HCBS. Breanna from [facility] unable to see pt today so will likely f/u on Wednesday. ULTC will be faxed tomorrow. CM to follow Date Signed: 09/24/2017 04:57 PM Electronically Signed By:Judy Krueger LCSW
[2017-09-24] MEDS: HYDROmorphone HCL/NS 0.5 MG/ML SYR IVP PRN (20:27)
[2017-09-25] MEDS: HYDROmorphone HCL/NS 0.5 MG/ML SYR IVP PRN (00:38)
[2017-09-25] MEDS: NS 1,000 ML IV SCH (00:38)
[2017-09-25] MEDS ORDERED: ENOXAPARIN 40 MG/0.4 ML SYR SC SCH (09:00)
--- NOTE | 2017-09-25 11:00 | SOAPPROG ---
SOAP Progress Note Assessment/Plan: Assessment/Plan 66 yo woman w metastatic cervical ca admitted for recurrent bowel obx 1. Bowel obx - conservative management now tolerating regular diet, +BM keeping ascites down makes a difference and would continue every 10 days or so 2. Metastatic cervical ca - eval for Donna Boyer phase 1 trials ongoing immunotherapy also an option palliation for recurrent ascites which will be ongoing issue unless effective tx for cervical cancer 3. ascites - loculated fluid pleurex may not be that helpful 4. Dispo - would plan for another paracentesis prior to home 09/25/17 10:51 Subjective: Having BM and eating regular diet without increased pain Objective: Vital Signs Temp Pulse Resp BP Pulse Ox 36.7 C 59 L 14 97/62 L 97 09/25/17 07:30 09/25/17 07:30 09/25/17 07:30 09/25/17 07:30 09/25/17 07:30 Laboratory Results 09/24/17 05:02 09/24/17 05:02 09/24/17 09/25/17 09/26/17 05:59 05:59 05:59 Intake Total 1900 2363 Output Total 1150 1500 Balance 750 863 PT 14.4 SEC (12.0-15.0) 09/23/17 05:45 INR 1.10 (0.83-1.16) 09/23/17 05:45 Gen - NAD HEENT - anicteric CV - RRR Abd - distention notes, +ascites, BS+ Ext - no dig edema ICD10 Worksheet Patient Problems: Problems Problem Status Onset Abdominal pain Acute SBO (small bowel obstruction) Acute Ascites Acute Ascites, malignant Acute Cervical cancer Acute Intractable generalized abdominal pain Acute Nausea and vomiting Acute Partial small bowel obstruction Acute
--- NOTE | 2017-09-25 12:18 | HOSPPROG ---
Hospitalist Progress Note Assessment/Plan: # recurrent SBO - slow progress - cont conservative management # cervical ca with peritoneal carcinomatosis and recurrent ascites requiring weekly paracentesis - looking into immunotherapy as an option for treatment - plan paracentesis tomorrow am # weakness - d/t the above; not comfortable going home at this point - PT # dvt ppx - lovenox (reusing); hold tomorrow pending paracentesis # dispo - pending further clinical improvement Subjective: had 2 BMs in last 24 hours; did not want AXR d/t radiation; seen with her Objective: Vital Signs Temp Pulse Resp BP Pulse Ox 36.7 C 59 L 14 97/62 L 97 09/25/17 07:30 09/25/17 07:30 09/25/17 07:30 09/25/17 07:30 09/25/17 07:30 Laboratory Results 09/24/17 05:02 09/24/17 05:02 09/24/17 09/25/17 09/26/17 05:59 05:59 05:59 Intake Total 1900 2363 Output Total 1150 1500 Balance 750 863 PT 14.4 SEC (12.0-15.0) 09/23/17 05:45 INR 1.10 (0.83-1.16) 09/23/17 05:45 - Time Spent With Patient Time Spent with Patient: greater than 35 minutes Time Spent with Patient: Greater than 35 minutes spent on this patients care, greater than 50% of time spent counseling, educating, and coordinating care regarding the above mentioned plan. - Physical Exam Constitutional: no apparent distress Gastrointestinal: distension (more than yesterday) ICD10 Worksheet Patient Problems: Problems Problem Status Onset Abdominal pain Acute SBO (small bowel obstruction) Acute Ascites Acute Ascites, malignant Acute Cervical cancer Acute Intractable generalized abdominal pain Acute Nausea and vomiting Acute Partial small bowel obstruction Acute
--- NOTE | 2017-09-25 16:37 | ASMTCMCOM ---
CM Note CM Note Notes: ULTC signed by pt & faxed to [facility]. Copy of ULTC placed in pt's chart. CM will continue to follow. Date Signed: 09/25/2017 04:36 PM Electronically Signed By:Tosin Terry RN
[2017-09-26] MEDS ORDERED: LIDOCAINE 1% 300 MG/30 ML SDV ONE (10:08)
--- NOTE | 2017-09-26 14:15 | HOSPPROG ---
Hospitalist Progress Note Assessment/Plan: # recurrent SBO - slow progress - cont conservative management - AXR with ongoing obstruction # cervical ca with peritoneal carcinomatosis and recurrent ascites requiring weekly paracentesis - looking into immunotherapy as an option for treatment - s/p paracentesis; not a candidate for a drain d/t loculated nature of her ascites # weakness - d/t the above; not comfortable going home at this point - PT # dvt ppx - lovenox (refusing); hold tomorrow pending paracentesis # dispo - pending further clinical improvement Subjective: no BM in 24 hours; s/p paracentesis today Objective: Vital Signs Temp Pulse Resp BP Pulse Ox 36.9 C 65 14 117/79 95 09/26/17 08:00 09/26/17 08:00 09/26/17 08:00 09/26/17 08:00 09/26/17 08:00 Laboratory Results 09/24/17 05:02 09/24/17 05:02 09/25/17 09/26/17 09/27/17 05:59 05:59 05:59 Intake Total 2363 850 Output Total 1500 1350 Balance 863 -500 PT 14.4 SEC (12.0-15.0) 09/23/17 05:45 INR 1.10 (0.83-1.16) 09/23/17 05:45 - Time Spent With Patient Time Spent with Patient: greater than 35 minutes Time Spent with Patient: Greater than 35 minutes spent on this patients care, greater than 50% of time spent counseling, educating, and coordinating care regarding the above mentioned plan. ICD10 Worksheet Patient Problems: Problems Problem Status Onset SBO (small bowel obstruction) Acute Ascites Acute Nausea and vomiting Acute Ascites, malignant Acute Cervical cancer Acute Intractable generalized abdominal pain Acute Partial small bowel obstruction Acute Abdominal pain Acute
--- NOTE | 2017-09-26 15:35 | ASMTCMCOM ---
CM Note CM Note Notes: CM discussed case with floor RN, ascites drained well today, discharge pending SBO progress and clinical improvement. RN also informed that Palliative completed visit and paperwork was signed. D/C plan continues to be with [facility]. CM available for further CM needs. Current D/C Plan: D/C likely 09/27 with [facility]. Date Signed: 09/26/2017 03:34 PM Electronically Signed By:Yulia Marino
--- NOTE | 2017-09-27 12:15 | HOSPPROG ---
Hospitalist Progress Note Assessment/Plan: # recurrent SBO - continues with slow progress - cont conservative management - consider gen surg eval or small bowel follow through - patient resistant to more radiation at this point # cervical ca with peritoneal carcinomatosis and recurrent ascites requiring weekly paracentesis - looking into immunotherapy as an option for treatment - s/p paracentesis; not a candidate for a drain d/t loculated nature of her ascites # pleural effusions -suspect d/t ascites # weakness - d/t the above; not comfortable going home at this point - PT # dvt ppx - lovenox (refusing); ambulation # dispo - pending further clinical improvement Subjective: still not tolerating much PO; no BM since yesterday Objective: Vital Signs Temp Pulse Resp BP Pulse Ox 36.4 C 68 16 97/71 L 95 09/27/17 08:00 09/27/17 08:00 09/27/17 08:00 09/27/17 08:00 09/27/17 08:00 Laboratory Results 09/24/17 05:02 09/24/17 05:02 09/26/17 09/27/17 09/28/17 05:59 05:59 05:59 Intake Total 850 2120 Output Total 1350 400 Balance -500 1720 PT 14.4 SEC (12.0-15.0) 09/23/17 05:45 INR 1.10 (0.83-1.16) 09/23/17 05:45 AXR and CXR personally reviewed - Physical Exam Constitutional: no apparent distress, appears nourished Ears, Nose, Mouth, Throat: hearing normal Cardiovascular: edema (trace bilat) Respiratory: no respiratory distress Gastrointestinal: tenderness (diffuse), distension, No hepatosplenomegally, No guarding, No rebound Genitourinary: No maki in urethra Skin: warm Musculoskeletal: full muscle strength Neurologic: AAOx3 ICD10 Worksheet Patient Problems: Problems Problem Status Onset SBO (small bowel obstruction) Acute Ascites Acute Nausea and vomiting Acute Ascites, malignant Acute Cervical cancer Acute Intractable generalized abdominal pain Acute Partial small bowel obstruction Acute Abdominal pain Acute
--- NOTE | 2017-09-28 11:03 | HOSPPROG ---
Hospitalist Progress Note Assessment/Plan: # recurrent SBO - making some progress today - cont conservative management - have discussed gen surg eval or SBFT; will cont conservative treatment at this time # cervical ca with peritoneal carcinomatosis and recurrent ascites requiring weekly paracentesis - looking into immunotherapy as an option for treatment - s/p paracentesis here; not a candidate for a drain d/t loculated nature of her ascites # pleural effusions -suspect d/t ascites # hypoK - she will try to increase K in her diet # hypoglycemia - d/t poor po intake; discussed drinking juice today # weakness - d/t the above; not comfortable going home at this point - PT # dvt ppx - lovenox (refusing); ambulation # dispo - pending further clinical improvement Subjective: +flauts, no BM; pain ok Objective: Vital Signs Temp Pulse Resp BP Pulse Ox 36.4 C 81 18 104/69 95 09/28/17 08:00 09/28/17 08:00 09/28/17 08:00 09/28/17 08:00 09/28/17 08:00 Laboratory Results 09/24/17 05:02 09/28/17 05:15 09/27/17 09/28/17 09/29/17 05:59 05:59 05:59 Intake Total 2120 Output Total 579 127 4724 Balance 1720 -700 -1000 PT 14.4 SEC (12.0-15.0) 09/23/17 05:45 INR 1.10 (0.83-1.16) 09/23/17 05:45 - Physical Exam Constitutional: no apparent distress, appears nourished Ears, Nose, Mouth, Throat: hearing normal Cardiovascular: edema (mild) Respiratory: no respiratory distress Gastrointestinal: distension (decreased), other (soft, not really tender) Genitourinary: No maki in urethra Skin: warm Musculoskeletal: full muscle strength Neurologic: AAOx3 Psychiatric: not anxious ICD10 Worksheet Patient Problems: Problems Problem Status Onset SBO (small bowel obstruction) Acute Ascites Acute Nausea and vomiting Acute Ascites, malignant Acute Cervical cancer Acute Intractable generalized abdominal pain Acute Partial small bowel obstruction Acute Abdominal pain Acute
--- NOTE | 2017-09-28 16:55 | ASMTCMCOM ---
CM Note CM Note Notes: CM spoke w/ Dr. Ya regarding d/c POC. CM emailed Belle Almanza to confirm that a referral had been made for pt [facility]. Belle confirmed that pt will be sent a check. CM met w/ pt and confirmed address. Pt will discharge with [facility] when medically stable. CM to follow. Plan: [facility] Date Signed: 09/28/2017 04:55 PM Electronically Signed By:RENITA Moon
--- NOTE | 2017-09-28 19:31 | SOAPPROG ---
SOAP Progress Note Assessment/Plan: Assessment: Assessment/Plan: Assessment/Plan 66 yo woman w metastatic cervical ca admitted for recurrent bowel obx 1. Bowel obx - conservative management passing flatus, no nausea. only taking liquids. keeping ascites down makes a difference and would continue every 10 days or so 2. Metastatic cervical ca - eval for Donna Boyer phase 1 trials ongoing immunotherapy also an option palliation for recurrent ascites which will be ongoing issue unless effective tx for cervical cancer 3. ascites - loculated fluid pleurex may not be that helpful 4. Dispo - Plan: continue conservative management for partial SBO, seems to be slowly improving. 09/28/17 19:30 Subjective: passing gas, no nausea, less cramps Objective: Vital Signs Temp Pulse Resp BP Pulse Ox 36.7 C 66 18 110/66 95 09/28/17 16:00 09/28/17 16:00 09/28/17 16:00 09/28/17 16:00 09/28/17 08:00 Laboratory Results 09/24/17 05:02 09/28/17 05:15 09/27/17 09/28/17 09/29/17 05:59 05:59 05:59 Intake Total 2120 Output Total 970 635 0575 Balance 1720 -700 -1500 PT 14.4 SEC (12.0-15.0) 09/23/17 05:45 INR 1.10 (0.83-1.16) 09/23/17 05:45 Physical Exam - Physical Exam General Appearance: alert Respiratory: lungs clear Abdomen: soft, other (slightly distended, small amount of ascites, positive bowel sounds, non tender) ICD10 Worksheet Patient Problems: Problems Problem Status Onset Abdominal pain Acute SBO (small bowel obstruction) Acute Ascites Acute Ascites, malignant Acute Cervical cancer Acute Intractable generalized abdominal pain Acute Nausea and vomiting Acute Partial small bowel obstruction Acute
--- NOTE | 2017-09-29 11:51 | HOSPPROG ---
Hospitalist Progress Note Assessment/Plan: Rayna Toure is a 66 y/o female who has a hx of metastatic cervical cancer and peritoneal carcinomatosis who presented w a SBO. Today is my first encounter w the patient, chart reviewed. Reviewed her care w Dr Ya who has been caring for her. # recurrent SBO - was able to drink fluids today - cont conservative management - Dr Ya spoke with general surg eval, cont conservative treatment at this time # cervical ca with peritoneal carcinomatosis and recurrent ascites requiring weekly paracentesis - looking into immunotherapy as an option for treatment - s/p paracentesis here; not a candidate for a drain d/t loculated nature of her ascites - she usually gets weekly paracentesis # pleural effusions -suspect d/t ascites # hypoK - she will try to increase K in her diet # hypoglycemia - d/t poor po intake; discussed drinking juice today # weakness - due to poor intake # severe protein calorie malnutrition -BMI 16.8 -she is on supplements # dvt ppx - lovenox (refusing); ambulation # dispo - she is starting to eat and drink today, she was very concerned about being discharged today. Would like to see if she can tolerate eating and drinking and if she is doing well, would very much like to be discharged in the morning. I will let the provider following me know her wishes. Subjective: Rayna is just starting to feel better, not having pain when she drinks fluids. Objective: Vital Signs Temp Pulse Resp BP Pulse Ox 36.6 C 64 14 111/77 97 09/29/17 08:48 09/29/17 08:48 09/29/17 08:48 09/29/17 08:48 09/29/17 08:48 Laboratory Results 09/24/17 05:02 09/29/17 05:45 09/28/17 09/29/17 09/30/17 05:59 05:59 05:59 Output Total 700 1500 1000 Balance -700 -1500 -1000 PT 14.4 SEC (12.0-15.0) 09/23/17 05:45 INR 1.10 (0.83-1.16) 09/23/17 05:45 - Physical Exam Constitutional: chronically ill appearing, cachectic Eyes: PERRL Ears, Nose, Mouth, Throat: hearing normal Cardiovascular: regular rate and rhythym Respiratory: no respiratory distress Gastrointestinal: ascites Skin: warm, No normal color (pale) Musculoskeletal: generalized weakness Neurologic: AAOx3 Psychiatric: interacting appropriately ICD10 Worksheet Patient Problems: Problems Problem Status Onset Abdominal pain Acute SBO (small bowel obstruction) Acute Ascites Acute Ascites, malignant Acute Cervical cancer Acute Intractable generalized abdominal pain Acute Nausea and vomiting Acute Partial small bowel obstruction Acute
[2017-09-30 07:22] VITALS: BP 129/86
--- NOTE | 2017-09-30 11:13 | ASMTLACE ---
LACE Length of stay for Answers: 4-6 days current admission Acuity / Level of Answers: Yes Care: Did the patient have an inpatient admission? Comorbidities - select Answers: Other Notes: Cervical cancer all that apply # of Emergency department Answers: 3-4 visits in the last 6 months Score: 11 Date Signed: 09/30/2017 11:13 AM Electronically Signed By:Ethel Santiago RN
--- NOTE | 2017-09-30 16:20 | GDS ---
[f rep st] DISCHARGE SUMMARY DISCHARGE DIAGNOSES: 1. Small bowel obstruction. 2. Cervical cancer with peritoneal carcinomatosis. 3. Pleural effusions. 4. Hypokalemia. 5. Hypoglycemia. 6. Weakness. 7. History of protein calorie malnutrition. STUDIES AND PROCEDURES DONE: 1. Paracentesis. 2. Abdominal x-ray. PHYSICAL EXAM: GENERAL: The patient is alert. VITAL SIGNS: Afebrile at 36.9, pulse 72, respirator y rate 16, blood pressure is 129/86. She is saturating 94% on room air. I have seen and evaluated the patient on the day of discharge. HOSPITAL COURSE: The patient is a 66-year-old female who presented to the emergency room with compla ints of abdominal pain. She was evaluated and diagnosed with: 1. Recurrent small bowel obstruction. During this hospitalization, conservative management was take n. The patient's obstruction has resolved independently. She is tolerating a regular diet and havin g bowel movements. 2. History of cervical cancer with peritoneal carcinomatosis. The patient does suffer from recurren t ascites secondary to this condition. A paracentesis was performed here. She will continue on her regularly scheduled outpatient paracentesis schedule. 3. Pleural effusions. This is stable. She is not requiring supplemental oxygen. 4. Hypokalemia. She will attempt to eat more potassium in her diet. 5. Hypoglycemia. This is secondary to the patient's poor p.o. intake and has resolved. 6. Weakness. This is multifactorial. 7. Severe protein calorie malnutrition. She is taking supplements and doing the best that she can, given her medical conditions. 8. Disposition. She will be discharged home independently to follow up in the outpatient setting wi th her previously prescribed followup plan. DISCHARGE MEDICATIONS: I have not adjusted the patient's previously prescribed home medications. Pl ease refer to her EMR form. I spent greater than 35 minutes in the care, coordination, and management of the patient's dispositio n. /[id number]/MODL
--- NOTE | 2017-09-30 17:42 | ASDISCHSUM ---
Discharge Information Plan Status:Home with Home Health Medically Cleared to Leave: Discharge Date:09/30/2017 11:32 AM CM D/C Disposition:Other (Not listed) ADT D/C Disposition:Home, Routine, Self-Care Projected Discharge Date:09/26/2017 11:00 AM Transportation at D/C:Family Discharge Delay Reason: Follow-Up Date:09/26/2017 11:00 AM Discharge Slot: Final Diagnosis: Placement Information Referral Type:Palliative Care Referral ID:[id number] Provider Name:[facility] Address 1:[address] Phone Number: Address 2: Fax Number: City:[place] Selection Factors: State:[place] Patient Contact Information Contact Name:PARKER Relationship:Life Partner Address:[address] [place] [address] Work Phone: City:[facility] Phone: [facility]/Zip Code:[place] [address] Email: Financial Information Financial Class:Medicare Advantage Plans Primary Plan Desc:[facility] Primary Plan Number:[id number] Secondary Plan Desc: Secondary Plan Number: Assessment Information LACE LACE Length of stay for Answers: 4-6 days current admission Acuity / Level of Answers: Yes Care: Did the patient have an inpatient admission? Comorbidities - select Answers: Other Notes: Cervical cancer all that apply # of Emergency department Answers: 3-4 visits in the last 6 months Score: 11 Date Signed: 09/30/2017 11:13 AM Electronically Signed By:Ethel Santiago RN [facility] Progress Note CM Note CM Note Notes: Pt readmitted for pain following DC two days ago. Met with pt and [facility]. They would welcome a community-based palliative care referral to help them with pain mgmt at home. Faxed referral to [facility] who will contact them and arrange a mtg and also run benefits. Pt and also discussed the financial burden of pt's cancer dx. her advantage plan requires co-pays at each IR visit for a paracentesis and 5 days of co-pays for each hospitalization. Suggested they reach out to ins co. and hospitall to see if they could reduce the amount owed. Also made a red lipstick request. Pt had applied for supplemntal medicaid but was over the limit. Pt not medically eligible for LTC medicaid at this time. Date Signed: 09/24/2017 01:50 PM Electronically Signed By:Judy Krueger LCSW [facility] Progress Note CM Note CM Note Notes: [facility] ran pt's [employer] benefits and she is covered at 100%. They will see her tomorrow. Pt qualifies financially for LTC Medicaid and may qualify medically for HCBS. Breanna from [facility] unable to see pt today so will likely f/u on Wednesday. ULTC will be faxed tomorrow. CM to follow Date Signed: 09/24/2017 04:57 PM Electronically Signed By:Judy Krueger LCSW [facility] Progress Note CM Note CM Note Notes: ULTC signed by pt & faxed to [facility]. Copy of ULTC placed in pt's chart. CM will continue to follow. Date Signed: 09/25/2017 04:36 PM Electronically Signed By:Tosin Terry RN [facility] CM Progress Note CM Note CM Note Notes: CM discussed case with floor RN, ascites drained well today, discharge pending SBO progress and clinical improvement. RN also informed that Palliative completed visit and paperwork was signed. D/C plan continues to be with [facility]. CM available for further CM needs. Current D/C Plan: D/C likely 09/27 with [facility]. Date Signed: 09/26/2017 03:34 PM Electronically Signed By:Yulia Marino [facility] CM Progress Note CM Note CM Note Notes: CM spoke w/ Dr. Ya regarding d/c POC. CM emailed Belle Almanza to confirm that a referral had been made for pt for the [facility]. Belle confirmed that pt will be sent a check. CM met w/ pt and confirmed address. Pt will discharge with [facility] when medically stable. CM to follow. Plan: [facility] Date Signed: 09/28/2017 04:55 PM Electronically Signed By:RENITA Moon Case Management Discharge Plan Note Case Management Discharge Discharge Order Complete? Answers: No Notes: None needed Patient to Obtain Answers: Independently Medications Transportation Arranged Answers: Family/Friends Discharge Comments Notes: D/w RN, pt will dc home w/. CM notified [facility], they will call pt tomorrow. CM gave pt application for handicap parking placard. Date Signed: 09/30/2017 11:16 AM Electronically Signed By:Ethel Santiago RN Intervention Information Intervention Type:*IM-Signed Date of Service:09/30/2017 10:22 AM Patient Type:Inpatient Staff Member:Cyndi Malave Hours: Discipline: Severity: Comment:
== END 2017-09-30 11:32 | disposition home or self-care (01) | DRG 374 ==
LOC: OBSVTOIN 06:53 → F3E 07:48
PROVIDERS: ADMIT Family Medicine; ATTEND Family Medicine
PROC: 0W9G3ZZ Drainage of Peritoneal Cavity, Percutaneous Approach (ICD-10-PCS; principal; 2017-09-26)
DX: C78.6 Secondary malignant neoplasm of retroperitoneum and peritoneum (principal); R18.0 Malignant ascites; E43 Unspecified severe protein-calorie malnutrition; Z68.1 Body mass index [BMI] 19.9 or less, adult; J91.8 Pleural effusion in other conditions classified elsewhere; Z85.41 Personal history of malignant neoplasm of cervix uteri; E16.2 Hypoglycemia, unspecified; E87.6 Hypokalemia; E87.1 Hypo-osmolality and hyponatremia
CPT/HCPCS: 97161-GP; 97165-GO; 97530-GO; 97535-GO; G8978-GP-CI; G8979-GP-CI; G8980-GP-CI; G8987-GO-CJ; G8988-GO-CI; G8989-GO-CI; J1170; J1650; J2405

== ENCOUNTER 2017-10-04 15:54 | Inpatient (IN) | payer OTHER ==
--- NOTE | 2017-10-04 16:05 | EDPHY ---
H & P Time Seen by Provider: 10/04/17 16:00 HPI/ROS: CHIEF COMPLAINT: My bowel obstruction isn't gone HISTORY OF PRESENT ILLNESS: Patient was admitted recently and discharged on September 30, discharge summary personally reviewed. She has cervical cancer with peritoneal carcinomatosis and has small-bowel obstruction. She left on to go to her relatives college graduation but has not been able to eat or drink anything since. She says that any oral intake causes severe pain and she is unable to eat feels dehydrated. Symptoms severe, worse with eating. No radiation of her pain but she thinks is better because she had intraperitoneal lidocaine instilled during her last paracentesis which was done earlier today. REVIEW OF SYSTEMS: Eye: no change in vision ENT: no sore throat Cardiac: no chest pain or syncope Pulmonary: no cough or SOB Abdomen: HPI Musculoskeletal: Bilateral peripheral edema Skin: no rash Neuro: no headache, feels generally weak and dizzy when she stands up Constitutional: no fever : no urinary symptoms A comprehensive 10 point review of systems is otherwise negative aside from elements mentioned in the history of present illness. PAST MEDICAL HISTORY: Discharge summary dated 09/30/2017 personally reviewed includes small-bowel obstruction, cervical cancer with peritoneal carcinomatosis , hypokalemia, hypoglycemia, malnutrition. Social history: Here with her spouse General Appearance: Alert and conversant, cooperative. Eyes: No scleral icterus. ENT, Mouth: Dry mucous membranes Respiratory: Normal respiratory effort, breath sounds equal, lungs are clear to auscultation. Cardiovascular: Regular rate and rhythm. Gastrointestinal: Mild tenderness but no rebound or guarding, distended. Neurological: Alert, face symmetric, normal motor and sensory in extremities. Skin: Warm and dry, no rashes. Musculoskeletal: Bilateral 2+ peripheral edema. Psychiatric: Not agitated. Emergency Department course/MDM: Normal saline 1 L IV, three-way abdomen, electrolytes and admission to hospitalist service. 1654: 3 way abdomen shows bowel obstruction, admission for IV fluids, hospitalist consulted. WBC 8, hematocrit 28, platelets 428, sodium 133, potassium 4.2, BUN and creatinine 6 and 0.5. Smoking Status: Never smoked Constitutional: Initial Vital Signs Temperature (C) 36.7 C 10/04/17 15:59 Heart Rate 68 10/04/17 15:59 Respiratory Rate 18 10/04/17 15:59 Blood Pressure 118/74 10/04/17 15:59 O2 Sat (%) 98 10/04/17 15:59 O2 Delivery Mode Room Air Allergies/Adverse Reactions: Sulfa (Sulfonamide Antibiotics) Allergy (Severe, Verified 10/04/17 15:57) Rash cisplatin Allergy (Verified 10/04/17 15:57) wheat Allergy (Verified 10/04/17 15:57) Rash Home Medications: Medication Instructions Recorded Thyroid,Pork [Westhroid] 32.5 mg PO DAILY 02/23/16 Cmp Progesteron Crm 300mg/Ml 1 leighton TP HS 08/09/17 Ondansetron Odt [Zofran Odt 4 mg 4 mg PO Q4HRS PRN #30 tab 08/10/17 (*)] Herbals/Supplements -Info Only 1 ea PO DAILY 09/23/17 Medical Decision Making - Diagnostics Imaging Results: Imaging Impressions Abdomen X-Ray 10/04/17 16:20 Impression: 1. Recurring bowel obstruction. 2. Distended urinary bladder versus loculated ascitic collection in the pelvis. Imaging: I viewed and interpreted images myself Differential Diagnosis: Differential considered including but not limited to bowel obstruction, intestinal perforation, ileus, gastroenteritis. Consult/Admit Bed Type: [place] [id number] - Data Points Medications Given: Sodium Chloride (Ns) 1,000 mls @ 150 mls/hr IV CONT NELSON Stop: 04/02/18 17:29 Last Admin: 10/04/17 20:27 Dose: 1,000 mls Discontinued Medications Sodium Chloride (Ns) 1,000 mls @ 0 mls/hr IV EDNOW ONE; Wide Open PRN Reason: Protocol Stop: 10/04/17 16:21 Last Admin: 10/04/17 16:29 Dose: 1,000 mls Departure - Departure Disposition: [facility] Inpatient Acute Clinical Impression: Partial small bowel obstruction Condition: Good
[2017-10-04] MEDS ORDERED: NS 1,000 ML IV ONE (16:20)
[2017-10-04] MEDS ORDERED: ACETAMINOPHEN 325 MG TAB PO PRN (17:22)
[2017-10-04] MEDS ORDERED: HYDROmorphONE/DILAUDID 1 MG/ML INJ IVP PRN (17:22)
[2017-10-04] MEDS ORDERED: METOCLOPRAMIDE 10 MG TAB PO PRN (17:22)
[2017-10-04] MEDS ORDERED: METOCLOPRAMIDE 10 MG/2 ML VIAL IVP PRN (17:22)
[2017-10-04] MEDS ORDERED: ONDANSETRON DISINTEGRATING 4 MG TAB PO PRN (17:22)
[2017-10-04] MEDS ORDERED: ONDANSETRON 4 MG/2 ML VIAL IVP PRN (17:22)
[2017-10-04] MEDS ORDERED: HYDROmorphONE/DILAUDID 2 MG TAB PO PRN (17:22)
[2017-10-04 17:39] LABS: PLATELET COUNT 428 10^3/uL (150-400)
--- NOTE | 2017-10-04 19:11 | PDGENHP ---
History and Physical - Chief Complaint Acute abdominal pain - History of Present Illness Primary care provider: Dr. Edward Primary oncologist: Dr. Joselo Rdz HPI: 66-year-old female presents with acute abdominal pain characterized as sharp, located in the anterior left lower quadrant with associated anorexia. She reports that since she was discharged from the hospital 4 days ago, she has subsequently vomited all of her small, soft oral intake which she consumed prior to discharge, and she has been unable to tolerate oral solids thereafter. She reports that she has had minimal liquid oral intake and has not advanced her diet secondary to pain being exacerbated by oral intake of anything more substantial. She has had some constipation which has been alleviated with enemas and she had a small bowel movement on the day of this presentation. She reports that she is using medical cannabis to alleviate her pain, and has been marginally successful. She reports that she has had an abdominal paracentesis with injection of lidocaine on the day of this presentation, and her abdominal discomfort was somewhat improved after the injection of the lidocaine. She was sent over for subsequent imaging, and an abdominal x-ray demonstrated air-fluid levels in the small and large bowel, consistent with recurrent small-bowel obstruction. History Information - Allergies/Home Medication List Allergies/Adverse Reactions: Sulfa (Sulfonamide Antibiotics) Allergy (Severe, Verified 10/04/17 15:57) Rash cisplatin Allergy (Verified 10/04/17 15:57) wheat Allergy (Verified 10/04/17 15:57) Rash Home Medications: Thyroid,Pork [Westhroid] 32.5 mg PO DAILY 02/23/16 [Last Taken 10/04/17 09:00] Cmp Progesteron Crm 300mg/Ml 1 leighton TP HS 08/09/17 [Last Taken 10/03/17 21:00] Herbals/Supplements -Info Only 1 ea PO DAILY 09/23/17 [Last Taken 09/22/17] I have personally reviewed and updated: family history, medical history, social history, surgical history - Past Medical History cancer (2008 diagnosis of metastatic cervical cancer with peritoneal carcinomatosis and loculated ascites, receiving weekly paracenteses with lidocaine injection) Additional medical history: Chronic compression fracture of T12, L2, L3-L4. Severe protein calorie malnutrition. Recurrent small-bowel obstruction recently discharged. Chronic pleural effusions - Surgical History Additional surgical history: Hysterectomy. Tonsillectomy. Adenoidectomy. Paracentesis on the day of this presentation - Family History Positive for: cancer (Extensive family hx of cancer) Additional family history: No recent sick family contacts - Social History Smoking Status: Never smoked Alcohol Use: None Drug Use: None Additional social history: Independent in her ADLs Review of Systems Review of Systems: ROS: 10pt was reviewed & negative except for what was stated in HPI & below Constitutional: Reports: other (Anorexia) Gastrointestinal: Reports: abdominal pain, constipation Physical Exam Physical Exam: Temp Pulse Resp BP Pulse Ox 36.6 C 66 16 128/85 H 96 10/04/17 18:31 10/04/17 18:31 10/04/17 18:31 10/04/17 18:31 10/04/17 18:31 Constitutional: no apparent distress, chronically ill appearing, uncomfortable, cachectic, No not in pain (Mild) Eyes: PERRL, anicteric sclera, EOMI Ears, Nose, Mouth, Throat: hearing normal, other (Tacky mucous membranes) Cardiovascular: regular rate and rhythym, no murmur, rub, or gallop (Distant heart sounds), No edema Respiratory: reduced air movement (Bilateral bases), No expiratory wheeze, No inspiratory crackles, No bronchial breath sounds, No respiratory distress Gastrointestinal: tenderness (Left lower quadrant), ascites (Loculated areas on exam), distension (Moderate), No normoactive bowel sounds (Hyperactive bowel sounds, high pitch), No guarding Skin: warm, No abrasion, No erythema (At the paracenteses sites) Musculoskeletal: other (Proximal muscle wasting) Neurologic: AAOx3, sensation intact bilaterally, No weakness Psychiatric: interacting appropriately, not anxious, not encephalopathic, thought process linear Lab Data & Imaging Review 10/04/17 17:25 10/04/17 17:25 WBC 8.12 10^3/uL (3.80-9.50) 10/04/17 17:25 RBC 3.05 10^6/uL (4.18-5.33) L 10/04/17 17:25 Hgb 9.3 g/dL (12.6-16.3) L 10/04/17 17:25 Hct 28.0 % (38.0-47.0) L 10/04/17 17:25 MCV 91.8 fL (81.5-99.8) 10/04/17 17:25 MCH 30.5 pg (27.9-34.1) 10/04/17 17:25 MCHC 33.2 g/dL (32.4-36.7) 10/04/17 17:25 RDW 15.6 % (11.5-15.2) H 10/04/17 17:25 Plt Count 428 10^3/uL (150-400) H 10/04/17 17:25 MPV 9.6 fL (8.7-11.7) 10/04/17 17:25 Neut % (Auto) 80.1 % (39.3-74.2) H 10/04/17 17:25 Lymph % (Auto) 13.7 % (15.0-45.0) L 10/04/17 17:25 Kendall % (Auto) 5.4 % (4.5-13.0) 10/04/17 17:25 Eos % (Auto) 0.2 % (0.6-7.6) L 10/04/17 17:25 Baso % (Auto) 0.2 % (0.3-1.7) L 10/04/17 17:25 Nucleat RBC Rel Count 0.0 % (0.0-0.2) 10/04/17 17:25 Absolute Neuts (auto) 6.50 10^3/uL (1.70-6.50) 10/04/17 17:25 Absolute Lymphs (auto) 1.11 10^3/uL (1.00-3.00) 10/04/17 17:25 Absolute Monos (auto) 0.44 10^3/uL (0.30-0.80) 10/04/17 17:25 Absolute Eos (auto) 0.02 10^3/uL (0.03-0.40) L 10/04/17 17:25 Absolute Basos (auto) 0.02 10^3/uL (0.02-0.10) 10/04/17 17:25 Absolute Nucleated RBC 0.00 10^3/uL (0-0.01) 10/04/17 17:25 Immature Gran % 0.4 % (0.0-1.1) 10/04/17 17:25 Immature Gran # 0.03 10^3/uL (0.00-0.10) 10/04/17 17:25 Sodium 133 mEq/L (135-145) L 10/04/17 17:25 Potassium 4.2 mEq/L (3.3-5.0) 10/04/17 17:25 Chloride 95 mEq/L (97-110) L 10/04/17 17:25 Carbon Dioxide 22 mEq/l (22-31) 10/04/17 17:25 Anion Gap 16 mEq/L (8-16) 10/04/17 17:25 BUN 6 mg/dL (7-23) L 10/04/17 17:25 Creatinine 0.5 mg/dL (0.6-1.0) L 10/04/17 17:25 Estimated GFR > 60 10/04/17 17:25 Glucose 77 mg/dL (70-100) 10/04/17 17:25 Calcium 8.2 mg/dL (8.5-10.4) L 10/04/17 17:25 Visualized and Interpreted imaging results: Yes Interpretation: Abdominal x-ray demonstrating air-fluid levels in the small bowel, large bowel, consistent with SBO, distended bladder Assessment & Plan Assessment: 66-year-old female presenting with acute, recurrent small-bowel obstruction in the setting of metastatic cervical cancer with peritoneal carcinomatosis Plan: 1. Small bowel obstruction. Acute, recurrent, new problem this provider, further workup indicated. Evidenced by abdominal x-ray demonstrating air-fluid levels, distended abdomen on exam, poor oral intake x4 days, which seems to exacerbate symptoms -patient currently does not have indication for nasogastric to, and she would like to avoid -NPO with IV fluids, supportive care with IV pain medication, promotility antiemetic treatment -given the patient's extensive peritoneal carcinomatosis as the likely cause, general surgery is not indicated -recommend repeating abdominal x-ray when she begins to clinically improve -recommend advancing diet to clears when she is moving her bowels, passing flatus and is hungry 2. Metastatic cervical cancer. 2009 diagnosis, peritoneal carcinomatosis likely causing recurrent small-bowel obstruction Review of outside records including discharge summary by iLsa Doherty from 2017 reports that the patient was advanced to regular diet, was moving her bowels prior to most recent discharge, and the oncology consultation indicates the patient is currently not on chemotherapy but is considering immunotherapy verses a phase 1 trial -will get oncology consultation to assist in her overall care and guidance moving forward -PT OT consultations 3. Malignant ascites. Review of paracentesis by Dr. Pedro Cota from day of presentation demonstrates that he removed approximately 800 mL of fluid from the right lower quadrant and left lower quadrant, with injection of lidocaine, currently a palliative measure for this patient 4. Acute hyponatremia. Most likely secondary to poor oral intake, provide normal saline and continue to monitor Diet. NPO Prophylaxis. High risk patient, Lovenox 40 Code. Full per patient, is MD POA Disposition. Anticipated discharge uncertain this time, anticipated stay is greater than 48 hr for reasonable medical necessity including acute small bowel obstruction which has typically taken anywhere between 4 and 7 days to resolve in the past.
[2017-10-04] MEDS: NS 1,000 ML IV SCH (20:27)
[2017-10-04] MEDS ORDERED: PROGESTERONE TP SCH (21:00)
[2017-10-04] MEDS: PROGESTERONE TP SCH (22:30)
[2017-10-05] MEDS: NS 1,000 ML IV SCH (02:42)
[2017-10-05 05:27] LABS: PLATELET COUNT 368 10^3/uL (150-400)
[2017-10-05] MEDS ORDERED: THYROID PORK 32.5 MG PO SCH (09:00)
[2017-10-05] MEDS ORDERED: Herbals/Supplements -Info Only PO SCH (09:00)
[2017-10-05] MEDS: THYROID PORK 32.5 MG PO SCH (10:17)
[2017-10-05] MEDS: ENOXAPARIN 40 MG/0.4 ML SYR SC SCH (10:17)
--- NOTE | 2017-10-05 11:00 | GCON ---
[f rep st] CONSULTATION NEW PATIENT CONSULTATION PRIMARY ONCOLOGIST: Jonna Rdz MD. REQUESTING PHYSICIAN: Rolo Moody MD. REASON FOR CONSULTATION: Patient with known metastatic cervical carcinoma, admitted with bowel obstruction. HISTORY OF PRESENT ILLNESS: The patient is a very pleasant 66-year-old female with a diagnosis of metastatic cervical carcinoma, previously seen by Dr. Negin Rodrigez in [address] Adam Vital for several years. Majority of her treatment has been performed in [facility], and the exact nature of these treatments remain somewhat unclear. In summary, had an abnormal Pap in 2007 revealing squamous cell carcinoma. She did not have definitive treatment performed at that time but sought treatment with herbal therapy. A repeat Pap smear done in 2008 revealed invasive cervical cancer. A cone biopsy was done which confirmed diagnosis. Patient declined traditional treatment and underwent herbal therapy again. She was followed for a period of time with Dr. Adam Vital with very close surveillance but then lost to followup. In August 2015, she developed increasing abdominal distention. Workup revealed abdominal ascites and multiple pelvic masses. She underwent therapy in [facility], exact nature of therapy remains unclear. She presented with her first small bowel obstruction in February of 2016. She was seen by Dr. Vital and underwent an exploratory laparotomy, radical debulking, and was found to have extensive metastatic squamous cell carcinoma. She had widespread intraabdominal and retroperitoneal disease at that time and was unable to have optimal surgical reduction. At that time, standard chemotherapy was recommended. The patient chose to return to [facility], where she again received multiple "low-dose" chemotherapy treatments. She has had difficulty articulating exactly what treatments were given. Evidently, she received low-dose 5-FU in March 2016 and April 2016. The exact dosing and schedule remains unknown. She continues to develop worsening intraabdominal ascites. A PET-CT performed in May 2017 shows large volume ascites with peripheral hypermetabolic activity and nodularity suggesting persistent peritoneal disease. She had mild hypermetabolic activity and left lower lobe loculated pleural effusion. No evidence of pulmonary or hepatic involvement from her cancer. Her known compression fractures are non-FDG avid suggesting these are osteoporotic as opposed to malignant. Dr. Rdz sent [employer] profile on her tumor specimen which revealed evidence of PDGFRa mutation, as well as PI3-kinase mutation, in addition to an MSI stable tumor with low mutational burden. The patient was referred to Dr. Milton Pérez at the [facility]. She was evaluated and offered a slot in phase 1 clinical trial using a WEE inhibitor. She did not return phone call from the clinic and was passed up on the clinical trial. She continues to spend several weeks in [place], [place], at the [facility]. She sees a chiropractor, given multiple alternative therapies including UV intravascular light treatments, IV glutathione, and IV vitamin C. She has been treated on a ketogenic diet. She has now been hospitalized at [facility] in July and then August of 2017 with partial bowel obstruction that resolved with conservative management. Yesterday, she presented again after being recently discharged 4 days prior, again complaining of abdominal distention, left lower quadrant pain, and anorexia. She was unable to tolerate oral or solid foods. Plain film x-ray suggested bowel obstruction and she was admitted for conservative management. I will note that the last CT abdomen she had was September 19, 2017, which showed peritoneal mesenteric carcinomatosis, multiple loculated fluid collections in the abdomen and pelvis. Patient has had 800 cc drained from either side of her abdomen. She is currently on IV fluids and has no NG tube. PAST MEDICAL HISTORY: Hypothyroidism, cervical cone biopsy September 27, 2008, wisdom teeth extraction, uncomplicated tonsillectomy and adenoidectomy as a child. SOCIAL HISTORY: Long-term partner, has a son, lives in the [facility] above [place], [place]. 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 She is a lifelong nonsmoker. She does not drink alcohol. PHYSICAL EXAM: VITAL SIGNS: Blood pressure 96/61, pulse of 55, respiration rate 15, O2 saturation 97% on room air, temp 36.6. GENERAL: She is a chronically ill-appearing woman, thin but not cachectic. HEENT: Anicteric. HEART: Regular rate and rhythm. LUNGS: Clear anteriorly. ABDOMEN: Distended moderately with decreased bowel sounds. She has fluid shift consistent with ascites. LOWER EXTREMITIES: No significant edema. LABS: Today show white blood cell count of 6.6, hemoglobin 9.4, hematocrit 28.6 , and platelet count of 368,000. Chemistry shows a sodium 136, BUN 5, creatinine 0.5, glucose 64, AST 23, ALT 24, total protein 4.5, albumin 2.1. ASSESSMENT AND PLAN: The patient is a 66-year-old woman with metastatic cervical carcinoma complicated by carcinomatosis and malignant ascites, who presents with recurrent bowel obstruction. 1. Bowel obstruction. Patient is currently nothing by mouth on intravenous fluids alone. She is not having bowel movements or passing gas. Going to try to advance her diet as her pain is now completely controlled. Start with clears and have her walk around as much as possible. Surgery is less than ideal. Briefly discussed with her today the possibility of a diverting ostomy, although she was not in favor of any sort of surgical approach, but I think she will continue to have recurrent admissions for this same issue as her cancer is not currently being treated. 2. Metastatic cervical carcinoma. Largely treated nontraditionally by naturopaths and chiropractors, not currently on active cytotoxic therapy. The patient is hoping for a clinical trial at [facility]. She refuses chemotherapy, option of immunotherapy, but in the meantime, she continues to be admitted for recurrent bowel obstruction. I am not sure that this is a sustainable course and will discuss this with Dr. Rdz. The patient is certain she can overcome the bowel obstruction with liquid diet and anti inflammatory diet. We have discussed with her before that her peritoneal disease may ultimately lead to malignant bowel obstruction in the future and this can be life-threatening. 3. Deep vein thrombosis prophylaxis. Patient is refusing Lovenox and wants to walk around on her own. 4. Anemia, anemia of chronic disease. No obvious blood loss. This is chronic. 5. Pain, resolved. 6. Will continue to follow patient along and make recommendations as appropriate. She was not wanting to talk about any alternative approaches to her treatments. 30 minutes was spent with patient and , more than 50% of the time in counseling and coordinating care /[id number]/MODL MTDD
--- NOTE | 2017-10-05 12:29 | PDMN ---
Medical Necessity Medical necessity: Patient meets inpatient criteria per physician note and MCG M -210 Intestinal Obstruction - 2 days - (recurring SBO per abd xray; patient with history of metastatic cervical cancer and recent SBO, now unable to tolerate p.o.and with acute abd pain; anticipated LOS > 2 midnights for bowel rest, IV hydration, prn IV antiemetics and pain control.)
--- NOTE | 2017-10-05 16:42 | HOSPPROG ---
Hospitalist Progress Note Assessment/Plan: 66 yo F with hx of metastatic cervical cancer presenting with recurrent sbo # recurrent SBO: seems to be improving overnight, pain improved, less n/v but no return of bowel sounds at this point. Will likely advance to clears later today if sxs continue to improve. # metastatic cervical cancer: patient has not been willing to pursue conventional management for this, appreciate oncology input, she prefers to continue her alternative care # malignant ascites: in setting of above # abdominal pain: 2/2 sbo and controlled # IP status, will require > 48 hour stay for eval/mgmt of above Patient new to my care. Old records reviewed and summarized as above. Care plan reviewed with oncology. Subjective: no significant overnight events, patient currently feeling a bit better Objective: Vital Signs Temp Pulse Resp BP Pulse Ox 35.9 C L 54 L 18 130/70 H 95 10/05/17 11:17 10/05/17 11:17 10/05/17 11:17 10/05/17 11:17 10/05/17 11:17 Laboratory Results 10/05/17 04:52 10/05/17 04:52 10/04/17 10/05/17 10/06/17 05:59 05:59 05:59 Intake Total 2313 Output Total 650 350 Balance 1663 -350 chronically ill appearing anicteric dry mm rrr no mrg cta b soft nt nd no cce warm dry well perfused oriented appropriate - Time Spent With Patient Time Spent with Patient: greater than 35 minutes Time Spent with Patient: Greater than 35 minutes spent on this patients care, greater than 50% of time spent counseling, educating, and coordinating care regarding the above mentioned plan. ICD10 Worksheet Patient Problems: Problems Problem Status Onset SBO (small bowel obstruction) Acute Ascites Acute Nausea and vomiting Acute Ascites, malignant Acute Cervical cancer Acute Intractable generalized abdominal pain Acute Partial small bowel obstruction Acute Abdominal pain Acute
--- NOTE | 2017-10-05 17:16 | ASMTCMCOM ---
CM Note CM Note Notes: Patient with metastatic cervical carcinoma complicated by carcinamatosis and malignant ascites who presents with recurrent SBO. She was was hospitalized at [facility] in July and August for the same, both times the obstructions resolved with conservative managment. For a thorough history of her cancer treatment, please reference Dr Urban's consultation. When patient was last discharged 09/29, she was referred to [facility] for [facility] services. Per Vanessa with [facility], multiple attempts were made to contact patient to no avail. Vanessa came to [facility] today to see patient, and patient asked her to leave and come back. Vanessa was able to set up a Nurse Practitioner home visit for some time next week. It's unfortunate that patient was unwilling to engage since she and her requested the palliative consult during the last admission. Case Management and Palliative will work together to support patient and family. Date Signed: 10/05/2017 04:42 PM Electronically Signed By:Marsha Hood RN
[2017-10-05] MEDS: PROGESTERONE TP SCH (22:03)
[2017-10-06] MEDS: NS 1,000 ML IV SCH ×2 (02:23→14:51)
[2017-10-06] MEDS: ENOXAPARIN 40 MG/0.4 ML SYR SC SCH (09:56)
--- NOTE | 2017-10-06 10:05 | SOAPPROG ---
SOAP Progress Note Assessment/Plan: Assessment/Plan: 66 yo woman w metastatic cervical ca complicated by carcinomatosis and malignant ascites who presented w recurrent bowel obx 1. bowel obx - does not have NGT tolerating clears and +flatus she is mobilizing and doing well but she feels she needs more hydration this will likely be a recurrent situation if cancer not dealt with she has chosen alternative approaches to ca treatment up to this point but looking for clinical trial at [facility] no surgical intervention recommended 2. Stage IV cervical ca - largely treated nontraditionally future options include peritoneal drain vs diverting ostomy which pt refuses at this time 3. DVT ppx - refusing loveno 4. Anemia - stable 5. Pain - resolved 6. Palliative Care w [facility] 10/06/17 10:01 Subjective: No acute events tolerating clears +flatus no abd pain Objective: Vital Signs Temp Pulse Resp BP Pulse Ox 36.7 C 64 17 117/75 97 10/06/17 08:35 10/06/17 08:35 10/06/17 08:35 10/06/17 08:35 10/06/17 08:35 Laboratory Results 10/05/17 04:52 10/05/17 04:52 10/05/17 10/06/17 10/07/17 05:59 05:59 05:59 Intake Total 2313 978 Output Total 650 1650 Balance 1663 -672 Gen - chronically ill HEENT - anicteric CV - RRR Chest - CTAB abd - distended, BS present but diminished ext - no sig edema ICD10 Worksheet Patient Problems: Problems Problem Status Onset Partial small bowel obstruction Acute Abdominal pain Acute Ascites Acute Ascites, malignant Acute Cervical cancer Acute Intractable generalized abdominal pain Acute Nausea and vomiting Acute SBO (small bowel obstruction) Acute
--- NOTE | 2017-10-06 12:20 | HOSPPROG ---
Hospitalist Progress Note Assessment/Plan: 66 yo F with hx of metastatic cervical cancer presenting with recurrent sbo # recurrent SBO: continues to be improving overnight, pain improved, less n/v , tolerating clears but does not feel ready to advance further. Has passed gas but no BM. Continue current management # metastatic cervical cancer: patient has not been willing to pursue conventional management for this, appreciate oncology input, she prefers to continue her alternative care # malignant ascites: in setting of above # abdominal pain: 2/2 sbo and controlled # IP status, will require > 48 hour stay for eval/mgmt of above Care plan reviewed with oncology. Subjective: no significant overnight events, patient feeling a bit better this am Objective: Vital Signs Temp Pulse Resp BP Pulse Ox 36.7 C 64 17 117/75 97 10/06/17 08:35 10/06/17 08:35 10/06/17 08:35 10/06/17 08:35 10/06/17 08:35 Laboratory Results 10/05/17 04:52 10/05/17 04:52 10/05/17 10/06/17 10/07/17 05:59 05:59 05:59 Intake Total 2313 978 Output Total 650 1650 Balance 1663 -672 chronically ill appearing anicteric dry mm rrr no mrg cta b soft nt nd no cce warm dry well perfused oriented appropriate - Time Spent With Patient Time Spent with Patient: greater than 35 minutes Time Spent with Patient: Greater than 35 minutes spent on this patients care, greater than 50% of time spent counseling, educating, and coordinating care regarding the above mentioned plan. ICD10 Worksheet Patient Problems: Problems Problem Status Onset Partial small bowel obstruction Acute Abdominal pain Acute Ascites Acute Ascites, malignant Acute Cervical cancer Acute Intractable generalized abdominal pain Acute Nausea and vomiting Acute SBO (small bowel obstruction) Acute
--- NOTE | 2017-10-06 15:54 | ASMTCMCOM ---
CM Note CM Note Notes: Met with pt to discuss DC needs. Pt did not f/u with [facility] after DC a week ago but is still willing to have their services. She also asked if they could help wihth IV fluids at DC. Told pt I would run ins. benefits if MD orderd. Will check with oncology tomorrow. Date Signed: 10/06/2017 03:54 PM Electronically Signed By:Judy Kureger LCSW
[2017-10-06] MEDS: THYROID PORK 32.5 MG PO SCH (18:56)
[2017-10-06] MEDS: PROGESTERONE TP SCH (21:04)
[2017-10-07 09:20] VITALS: BP 132/83
[2017-10-07] MEDS: THYROID PORK 32.5 MG PO SCH (10:04)
[2017-10-07] MEDS: ENOXAPARIN 40 MG/0.4 ML SYR SC SCH (10:05)
--- NOTE | 2017-10-07 11:33 | PDDCSUM ---
Discharge Summary Discharge Summary: Dates of service 10/04-10/07/17 Consultations: oncology Procedures: none Hospital course by problem: 66 yo F with hx of metastatic cervical cancer presenting with recurrent sbo # recurrent SBO: continues to improve, pain improved,n/v largely resolved, tolerating full liquids, passing gas. This is a chronic recurrent issue for her given her underlying disease process as next. Explained to her that this is unlikely to ever resolve completely. She understands but states she would like to stay in the hospital as it gives her "a break" from her grandchildren and that since her deductible has been met this will not cost her anything. Explained that this is not a reason for acute hospitalization and encouraged her to pursue options suggested for home care including home hospice. She agrees with this plan reluctantly. # metastatic cervical cancer: patient has not been willing to pursue conventional management for this, appreciate oncology input, she prefers to continue her alternative care--please see consult note from Dr. Urban for further details of patients pre hospitalization care. # malignant ascites: in setting of above, she fears this will reaccumulate this weekend and she will require drainage. She has a plan by her PCP to undergo scheduled drainage but patient states she does not want to drive to [place]. Encouraged her to not use ER for drainage but to continue to pursue a plan through her PCP # abdominal pain: 2/2 sbo and controlled DC home with home hospice Items for follow up: care plan to be created for scheduled drainage and management of her recurrent bowel obstructions which are unlikely to ever go away > 35 min spent in dc more than half in counseling patient
--- NOTE | 2017-10-07 13:27 | ASMTCMCOM ---
CM Note CM Note Notes: Pt ready for DC today. Pt asked about having IV fluids in the home. She is covered at 80% by [employer] but pt does not have a PICC or port. Spoke with Maggie at [facility] about doing IV fluids without a PICC. They advised against it. Pt stated she was okay to get them as outpt and was advised by her RN to call her oncologist to discuss. Pt is current with [facility] and they do not need new orders. They have an appt to meet with her next Wednesday. Date Signed: 10/07/2017 01:26 PM Electronically Signed By:Judy Krueger LCSW
--- NOTE | 2017-10-07 13:28 | ASMTLACE ---
LACE Length of stay for Answers: 2 days current admission Acuity / Level of Answers: Yes Care: Did the patient have an inpatient admission? Comorbidities - select Answers: Any tumor (including all that apply lymphoma or leukemia) # of Emergency department Answers: 3-4 visits in the last 6 months Score: 10 Date Signed: 10/07/2017 01:27 PM Electronically Signed By:Judy Krueger LCSW
--- NOTE | 2017-10-11 17:06 | PQFORM ---
PHYSICIAN QUERY FORM Needs Your Response This query form is being sent to you to assure this patient record is coded properly. 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 Moody, In reviewing this patient medical record it is noted patient had the diagnosis of sever protein calorie malnutrition. Patient presented with SBO. In the H&P patient had abdominal pain, anorexia and is unable to tolerate solids. Dr. Espana diagnosed patient with sever protein calorie malnutrition in the H&P Addendum dated 10/04. After study should the diagnosis of "sever protein calorie malnutrition" be included in the discharge summary? __x___ Yes No Unable to determine Other more appropriate diagnosis (please specify) Thank you ERNIE Moore HIM/Coding Dept. [phone] INSTRUCTIONS FOR RESPONSE: Answer question by clicking on the "Edit Document" button. Move cursor to area below the stars. When complete, hit "Save." Click on the "Sign" button, then click "Sign" again. Type in your PIN and hit "Enter." MTDD
== END 2017-10-07 14:56 | disposition hospice, home (50) | DRG 374 ==
LOC: F1N 18:27
PROVIDERS: ADMIT Internal Medicine; ATTEND Internal Medicine
DX: C78.6 Secondary malignant neoplasm of retroperitoneum and peritoneum (principal); R18.0 Malignant ascites; E43 Unspecified severe protein-calorie malnutrition; E87.1 Hypo-osmolality and hyponatremia; C53.9 Malignant neoplasm of cervix uteri, unspecified; D63.8 Anemia in other chronic diseases classified elsewhere; E03.9 Hypothyroidism, unspecified; Z80.9 Family history of malignant neoplasm, unspecified
CPT/HCPCS: 84134-90; 97116-GP; 97161-GP; 97166-GO; 97535-GO; G8978-GP-CI; G8979-GP-CH; G8987-GO-CI; G8988-GO-CI; G8989-GO-CI; J1650

== ENCOUNTER → 2017-10-04 | Outpatient (CLI) | payer OTHER | LOC: FIMAGING 12:28 | PROC: 0W9G3ZZ Drainage of Peritoneal Cavity, Percutaneous Approach (ICD-10-PCS; principal; 2017-10-04) | DX: C53.9 Malignant neoplasm of cervix uteri, unspecified (principal); R18.8 Other ascites ==

== ENCOUNTER → 2017-10-12 | Outpatient (CLI) | payer OTHER | LOC: FIMAGING 11:52 | PROC: 0W9F3ZZ Drainage of Abdominal Wall, Percutaneous Approach (ICD-10-PCS; principal; 2017-10-12) | DX: R18.0 Malignant ascites (principal); C53.9 Malignant neoplasm of cervix uteri, unspecified; M54.9 Dorsalgia, unspecified ==

== ENCOUNTER → 2017-10-19 | Outpatient (CLI) | payer OTHER ==
--- NOTE | 2017-10-19 18:01 | PDRADPN ---
Radiology Procedure Note Date of Procedure: 10/19/17 Radiologist: Adam Grossman Anesthesia: Local (Specify) Pre-op Diagnosis: malignant ascites Post-op Diagnosis: same Indication: distention Procedure: bilateral us guided paracentesis Finding(s): RLQ 6F access with 500mL aspirated. LLQ 5F access with 45mL aspirated. extensive fluid dilated small bowel noted, which accounts for most of the abdominal distention. Inf/Abcess present in the surg proc area at time of surgery?: No EBL: Minimal Complications: no
== END ==
LOC: FIMAGING 16:38
PROC: 0W9F3ZZ Drainage of Abdominal Wall, Percutaneous Approach (ICD-10-PCS; principal; 2017-10-19)
DX: R18.0 Malignant ascites (principal); R14.0 Abdominal distension (gaseous); M54.9 Dorsalgia, unspecified; C53.9 Malignant neoplasm of cervix uteri, unspecified; R93.3 Abnormal findings on diagnostic imaging of other parts of digestive tract

== ENCOUNTER → 2017-10-29 | Outpatient (CLI) | payer OTHER ==
--- NOTE | 2017-10-29 11:43 | PDRADPN ---
Radiology Procedure Note Date of Procedure: 10/29/17 Radiologist: Adam Grossman Anesthesia: Local (Specify) Pre-op Diagnosis: recurent ascites Post-op Diagnosis: same Indication: malignancy, therapeutic Procedure: US guided paracentesis Finding(s): minimally cloudy yellow-orange fluid. same two locules drained with 300-400cc each. Pelvic locule isolated and inaccessible. Inf/Abcess present in the surg proc area at time of surgery?: No Complications: none
== END ==
LOC: FIMAGING 10:27
PROC: 0W9G3ZZ Drainage of Peritoneal Cavity, Percutaneous Approach (ICD-10-PCS; principal; 2017-10-29)
DX: R18.8 Other ascites (principal); C53.9 Malignant neoplasm of cervix uteri, unspecified

== ENCOUNTER 2017-11-03 16:23 | Inpatient (IN) | payer OTHER ==
--- NOTE | 2017-11-03 17:30 | EDPHY ---
H & P Stated Complaint: Has a partial SBO - unable to keep solids down. Source: Patient Exam Limitations: No limitations - Personal History Current Tetanus Diphtheria and Acellular Pertussis (TDAP): Yes - Medical/Surgical History Hx Asthma: No Hx Chronic Respiratory Disease: No Hx Diabetes: No Hx Cardiac Disease: No Hx Renal Disease: No Hx Cirrhosis: No Hx Alcoholism: No Hx HIV/AIDS: No Hx Splenectomy or Spleen Trauma: No Other PMH: CERVICAL ca. acities. tonsilectomy. hysterectomy/SBO. SBO - Social History Smoking Status: Never smoked Time Seen by Provider: 11/03/17 17:29 HPI/ROS: HPI: This is a 66-year-old female who presents with Chief Complaint: Has a partial SBO - unable to keep solids down. Location: Abdomen Quality: Nausea Duration: 3 days Signs and Symptoms: no fever, + nausea, no vomiting, no hematemesis, no blood in stool, no abdominal bloating, no diarrhea, no back pain, no urinary symptoms , no vaginal bleeding/discharge, no indigestion, no chest pain, no shortness of breath Timing: Gradually worsening Severity: Moderate to severe Context: Patient has a history of cervical cancer, ascites requiring ultrasound guided paracentesis last 1 performed on 10/12/2017, partial small- bowel obstruction last 1 requiring hospitalization last month. Patient reports that over the last 3 days her ascites has actually decreased but her inability to eat has increased she feels constantly nauseous. She stopped passing gas from below approximately 2 days ago. She believes that she may have another partial small-bowel obstruction. She is extremely concerned about her nutrition level and is requesting for TPN nutrition to be provided in the hospital. She reports that she has not used pain medication primarily opiates in over 1 month. Modifying Factors: Cannabis oil Comment: ROS: see HPI Constitutional: No fever, no chills, no weight loss Eyes: No blurred vision Respiratory: No shortness of breath, no cough Cardiovascular: No chest pain, no palpitations Gastrointestinal: + nausea, no vomiting, no diarrhea, no hematemesis, no blood in stool Genitourinary: No dysuria, no blood in urine Extremities: No myalgias, no edema Neurologic: No weakness, no numbness Skin: No rashes, no petechiae Hematologic: No bruising, no bleeding MEDICAL/SURGICAL/SOCIAL HISTORY: Medical/surgical history: CERVICAL cancer, ascites, tonsillectomy, hysterectomy , small-bowel obstruction Social history: Retired. Family history noncontributory. CONSTITUTIONAL: Chronically ill-appearing elderly white female who is polite and cooperative. awake and alert, no obvious distress HEENT: Atraumatic and normocephalic, PERRL, EOMI. Nares patent; no rhinorrhea; no nasal mucosal edema. Tympanic membranes clear. Oropharynx clear, no exudate and moist pink mucosa. Airway patent. No lymphadenopathy. No meningismus. Cardiovascular: Normal S1/S2, regular rate, regular rhythm, without murmur rub or gallop. PULMONARY/CHEST: Symmetrical and nontender. Clear to auscultation bilaterally. Good air movement. No accessory muscle usage. ABDOMEN: Soft, distended, generalized moderate tenderness, no rebound, no guarding, no peritoneal signs. EXTREMITIES: 2/2 pulses, strength 5/5, no deformities, no clubbing, no cyanosis or edema. NEUROLOGICAL: no focal neuro deficits. GCS 15. SKIN: Warm and dry, no erythema. no rash. Good capillary refill. (Gaastra,Terra) Constitutional: Initial Vital Signs Temperature (C) 36.6 C 11/03/17 16:33 Heart Rate 99 11/03/17 16:33 Respiratory Rate 16 11/03/17 16:33 Blood Pressure 113/93 H 11/03/17 16:33 O2 Sat (%) 96 11/03/17 16:33 O2 Delivery Mode Room Air Allergies/Adverse Reactions: Sulfa (Sulfonamide Antibiotics) Allergy (Severe, Verified 10/04/17 15:57) Rash cisplatin Allergy (Verified 10/04/17 15:57) Home Medications: Medication Instructions Recorded Thyroid,Pork [Westhroid] 32.5 mg PO DAILY 02/23/16 Cmp Progesteron Crm 300mg/Ml 1 leighton TP HS 08/09/17 Herbals/Supplements -Info Only 1 ea PO DAILY 09/23/17 Medical Decision Making - Diagnostics Imaging Results: Imaging Impressions Abdomen CT 11/03/17 17:30 Impression: 1. Recurrent mechanical small bowel obstruction. 2. Moderate hydronephrosis secondary to midureteral obstruction, new. 3. Redemonstrated multiple large foci of loculated ascites versus cystic metastases. 4. Loculated, peripherally enhancing left lower lobe pleural fluid, seen previously. 5. Additional chronic findings as detailed above. Findings were communicated by telephone with Dr. Rose Bethea at 11/03/2017 19 :53 ED Course/Re-evaluation: Vital signs reviewed upon arrival and stable. Labs, CT abdomen and pelvis scan ordered. In regard to the ascites it appears to be fairly stable and emergent paracentesis is not required. 194: Called by radiologist who advised that CT abdomen and pelvis scan shows obstruction at the ileo 2 Junel segment as it is dilated. As well as a right ureter obstruction. Labs reviewed and show a sodium of 129 ED decision to consult for admission. Spoke with hospitalist, Dr. Ya, kindly agrees to admit patient for further care. Called General surgery and spoke with Dr. Huff. It appears that Dr. Minor has seen the patient 2015 so consultation was made to that group. Spoke with Dr. Minor who kindly agrees to consult on the patient. It appears that in 2016 the obstruction was managed conservatively with NG tube decompression and bowel rest. NG tube ordered. This patient was seen under the supervision of my secondary supervising physician. I evaluated care for this patient independently. Discussed this patient with Dr. Walls who did not see the patient. (Rose Bethea) I did not see this patient while she was in the emergency department. However her care was discussed with PA while the patient was in department. I agree with treatment plan and management (Joselo Walls) Differential Diagnosis: Abdominal pain including but not limited to appendicitis, cholecystitis, gastritis and urinary tract infection. (Rose Bethea) - Data Points Laboratory Results: Laboratory Results 11/03/17 18:11 11/03/17 18:11 11/03/17 11/03/17 11/03/17 18:11 18:11 18:11 WBC 4.35 10^3/uL 10^3/uL (3.80-9.50) RBC 4.21 10^6/uL 10^6/uL (4.18-5.33) Hgb 12.9 g/dL g/dL (12.6-16.3) Hct 38.3 % % (38.0-47.0) MCV 91.0 fL fL (81.5-99.8) MCH 30.6 pg pg (27.9-34.1) MCHC 33.7 g/dL g/dL (32.4-36.7) RDW 16.4 % H % (11.5-15.2) Plt Count 426 10^3/uL H 10^3/uL (150-400) MPV 9.7 fL fL (8.7-11.7) Neut % (Auto) Not Reported Lymph % (Auto) Not Reported Webb % (Auto) Not Reported Eos % (Auto) Not Reported Baso % (Auto) Not Reported Nucleat RBC Rel Count Not Reported Absolute Neuts (auto) Not Reported Absolute Lymphs (auto) Not Reported Absolute Monos (auto) Not Reported Absolute Eos (auto) Not Reported Absolute Basos (auto) Not Reported Absolute Nucleated RBC Not Reported Immature Gran % Not Reported Seg Neutrophils % 74.0 % % Band Neutrophils % 7.0 % % Lymphocytes % 13.0 % % Monocytes % 6.0 % % Eosinophils % 0 % % Basophils % 0 % % Metamyelocytes % 0 % % Myelocytes % 0 % % Promyelocytes % 0 % % Blast Cells % 0 % % Immature Gran # Not Reported Absolute Seg Neuts 3.22 10^/uL 10^/uL (1.70-6.50) Absolute Band Neuts 0.30 10^3/uL 10^3/uL (0.00-0.70) Absolute Lymphocytes 0.57 10^3/uL L 10^3/uL (1.00-3.00) Absolute Monocytes 0.26 10^3/uL L 10^3/uL (0.30-0.80) Absolute Eosinophils 0.00 10^3/uL L 10^3/uL (0.03-0.40) Absolute Basophils 0.00 10^3/uL L 10^3/uL (0.02-0.10) Absolute Metamyelocyte 0.00 10^3/mL 10^3/mL (0.00-0.00) Absolute Myelocytes 0.00 10^3/mL 10^3/mL (0.00-0.00) Absolute Promyelocytes 0.00 10^3/uL 10^3/uL (0.00-0.00) Absolute Plasma Cells 0.00 10^3/uL 10^3/uL (0.00-0.00) RBC/WBC/PLT Morphology NORMAL (NORMAL) Absolute Blast Cells 0.00 10^3/uL 10^3/uL (0.00-0.00) Plasma Cells % 0 % % Platelet Estimate ADEQUATE (ADEQ) ABG Lactic Acid 1.4 mmol/L mmol/L (0.5-1.6) Sodium 129 mEq/L L mEq/L (135-145) Potassium 4.3 mEq/L mEq/L (3.3-5.0) Chloride 87 mEq/L L mEq/L (97-110) Carbon Dioxide 23 mEq/l mEq/l (22-31) Anion Gap 19 mEq/L H mEq/L (8-16) BUN 21 mg/dL mg/dL (7-23) Creatinine 0.6 mg/dL mg/dL (0.6-1.0) Estimated GFR > 60 Glucose 76 mg/dL mg/dL (70-100) Calcium 9.8 mg/dL mg/dL (8.5-10.4) Total Bilirubin 1.0 mg/dL mg/dL (0.1-1.4) Conjugated Bilirubin 0.8 mg/dL H mg/dL (0.0-0.5) Unconjugated Bilirubin 0.2 mg/dL mg/dL (0.0-1.1) AST 57 IU/L H IU/L (14-46) ALT 42 IU/L IU/L (9-52) Alkaline Phosphatase 109 IU/L IU/L (38-126) Total Protein 7.3 g/dL g/dL (6.3-8.2) Albumin 3.7 g/dL g/dL (3.5-5.0) Lipase 68 IU/L IU/L (23-300) Departure - Departure Disposition: Home, Routine, Self-Care Clinical Impression: Small bowel obstruction, Hyponatremia, Obstruction of right ureter Condition: Fair
[2017-11-03 18:36] LABS: PLATELET COUNT 426 10^3/uL (150-400)
[2017-11-03] MEDS ORDERED: IOPAMIDOL (ISOVUE-300) 100 ML BTL ONE (18:43)
[2017-11-03] MEDS ORDERED: ONDANSETRON DISINTEGRATING 4 MG TAB PO PRN (20:44)
[2017-11-03] MEDS ORDERED: ACETAMINOPHEN 325 MG TAB PO PRN (20:44)
[2017-11-03] MEDS ORDERED: ONDANSETRON 4 MG/2 ML VIAL IVP PRN (20:44)
--- NOTE | 2017-11-03 21:39 | GHP ---
[f rep st] HISTORY AND PHYSICAL DATE OF ADMISSION: 11/03/2017 CHIEF COMPLAINT: Small bowel obstruction. HISTORY OF PRESENT ILLNESS: This 66-year-old female, who has a history of cervical cancer, admitted with inability to tolerate solids. She has been admitted to the hospital 4 times in the last 2 month s for this. Previous admissions have focused on medical management, although she has not really been successfully able to take a regular diet for some time. She has been on liquid diets with as many s upplements and electrolytes as possible. She has not been taking any pain medications for the last m onth. She gets recurrent ascites taps for loculated ascites. She sees Dr. Rdz as an outpatient. PAST MEDICAL/SURGICAL HISTORY: 1. Cervical cancer, status post radical debulking in 2016. 2. Recurrent partial small-bowel obstructions. 3. Chronic compression fracture. 4. Severe protein calorie malnutrition. 5. Chronic pleural effusions. MEDICATIONS: Please see medication reconciliation. ALLERGIES: Sulfa, cisplatin. SOCIAL HISTORY: She is accompanied by her . She does not drink or smoke. FAMILY HISTORY: Reviewed and noncontributory. REVIEW OF SYSTEMS: A 10-point review of systems is conducted and is negative except per HPI. PHYSICAL EXAM: VITAL SIGNS: Blood pressure 124/89, heart rate 91, respiration rate 16, saturating 9 6% on room air. Temperature 36.6. GENERAL: The patient is a very pleasant female who appears somew hat cachectic lying in bed. HEENT: Shows her to have temporal wasting. CARDIOVASCULAR: Exam shows regular rate and rhythm. No murmurs, rubs, or gallops. PULMONARY: Shows lungs clear to auscultati on bilaterally. ABDOMEN: Exam shows her to be somewhat distended. She is not really specially tend er to palpation. She has high-pitched bowel sounds. SKIN: Shows no rash. : Exam shows no Mayorga . NEUROLOGIC: Exam shows her to be alert and oriented x3. She is moving all extremities. PSYCHIAT REBEKAH: Exam shows normal mood and affect. LABS: Platelet count is 462, lactate 1.4. Sodium is 129. Bicarb 23, anion gap 19, AST is 57. DATA: Abdominal CT scan shows recurrent partial small bowel obstruction. She has newly accrued righ t liter with moderate to severe right-sided hydronephrosis. I discussed this with Rose Bethea PA-C, ED. We will admit to med/surg. IMPRESSION AND PLAN: 1. Recurrent small bowel obstruction: Seems as though she has never really cleared these over the p ast few months. Dr. Minor has been consulted, though I doubt anything surgical will need to be don e. This has caused her significant cachexia. I think medical management, at this point, is still ap propriate. Would consider home TPN as she is able to tolerate her pain and all the other symptoms, o ther than her significant wasting and dehydration. She is refusing an NG tube tonight, which I think is okay. 2. Hyponatremia: This is hypovolemic. We will provide her IV fluids. 3. Right ureteral obstruction: This is causing some right-sided hydronephrosis. Her creatinine is normal. I did not really address this with her, but I do not think that interventional management is warranted at this time. 4. Severe protein calorie malnutrition: She appears wasted. 5. Recurrent ascites: She is not really a candidate for a Benoit drain given the loculated nature o f these. 6. Recommend consultation with Oncology tomorrow. /[id number]/MODL
[2017-11-03] MEDS: NS 1,000 ML IV SCH (23:01)
--- NOTE | 2017-11-04 00:05 | PDCONSULT ---
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 She has had refractory ovarian cancer and has required hospitalization monthly over the last 4 months here in this hospital. CT previous CT scan from August does not demonstrate significant interval change she has loculated ascites and small-bowel obstruction with minimal gas and stool in her colon. The patient came in with 48 hr of inability to retain even liquid and no flatus. She is very optimistic about the fact that she has had decreasing frequencies between paracenteses and lesser amounts over the last several months. Past medical history of ovarian cancer Past surgical history: Debulking surgery multiple paracenteses Social history: Denies smoking alcohol or illicit drug use Medications: Allergies sulfa and cisplatin Family history: Noncontributory Review of systems significant for cachexia inability to take significant or oral intake she has sips of liquid with protein supplements which have been an adequate up to this point. Temp Pulse Resp BP Pulse Ox 36.8 C 80 18 116/88 H 97 11/03/17 22:00 11/03/17 22:00 11/03/17 22:00 11/03/17 22:00 11/03/17 22:00 Alert oriented to person place and time Sclerae anicteric Oropharynx slightly dry Cachectic with wasting globally. Poor muscle strength Regular rate and rhythm Clear to auscultation a prickly Abdomen on tensely distended tympanitic non tender to palpation Extremities without edema 2+ over 2+ pulses Affect is discordant with degree of her disease process and malnutrition 11/03/17 18:11 11/03/17 18:11 Total Bilirubin 1.0 mg/dL (0.1-1.4) 11/03/17 18:11 Conjugated Bilirubin 0.8 mg/dL (0.0-0.5) H 11/03/17 18:11 Unconjugated Bilirubin 0.2 mg/dL (0.0-1.1) 11/03/17 18:11 AST 57 IU/L (14-46) H 11/03/17 18:11 ALT 42 IU/L (9-52) 11/03/17 18:[address] 11/03/17 17:30 Impression: 1. Recurrent mechanical small bowel obstruction. 2. Moderate hydronephrosis secondary to midureteral obstruction, new. 3. Redemonstrated multiple large foci of loculated ascites versus cystic metastases. 4. Loculated, peripherally enhancing left lower lobe pleural fluid, seen previously. 5. Additional chronic findings as detailed above. Findings were communicated by telephone with Dr. Rose Bethea at 11/03/2017 19 :53 CT scan personally reviewed on PACS compared with that from August of this year along with several x-rays from the interim hospitalizations. Agree with findings of small-bowel obstruction loculated fusions likely malignant Impression/plan: Small-bowel obstruction due to carcinomatosis nonsurgical candidate at this point. Agree completely with Medicine that surgery is not indicated and hydration as an outpatient may be beneficial. The patient at this point is not able to take significant oral intake to allow her to progress landing type therapy. There has been evidence that use of total parental nutrition the situation is not entirely helpful as a cancer cells seem to benefit more from the nutrition on the patient's. At this point I will sign off and be available for any new surgical needs or venous access if that is desired from a surgical standpoint
[2017-11-04 04:58] LABS: PLATELET COUNT 391 10^3/uL (150-400)
[2017-11-04] MEDS ORDERED: Herbals/Supplements -Info Only PO SCH (09:00)
--- NOTE | 2017-11-04 09:11 | PDMN ---
Medical Necessity Medical necessity: Pt meets IP criteria per & MCG M-210 Intestinal Obstruction (SBO) w/cachexia & hyponatremia, as well as R ureteral obstruction & recurrent ascites; est los >2 days; requiring NPO status, IVFs & Surgical/ Oncology consult; hx cervical cancer & recurrent SBO
[2017-11-04] MEDS: ENOXAPARIN 40 MG/0.4 ML SYR SC SCH (10:38)
[2017-11-04] MEDS: THYROID PORK 32.5 MG PO SCH (10:39)
--- NOTE | 2017-11-04 13:54 | HOSPPROG ---
Hospitalist Progress Note Assessment/Plan: #Acute on Chronic SBO secondary to Carcinomatosis from Ovarian cancer, sees Dr. Munoz #SPCMN with cachexia #Loculated Ascites #Hyponatremia due to Dehydration, improving #FTT Plan: She is felt not to be a surgical candidate. Surgery has signed off cont with conservative mgmt She is reluctant to try supplemental nutrition, TPN She has a online consultation with her non western medicine provider today to help her with decisions going forward Oncology to see today Paracentesis as needed Lovenox for DVT proph Subjective: hesitant to try supplemental nutrition. no cp or sob. passing gas. Objective: Vital Signs Temp Pulse Resp BP Pulse Ox 36.3 C 98 17 121/85 H 98 11/04/17 08:57 11/04/17 12:04 11/04/17 12:04 11/04/17 12:04 11/04/17 12:04 Laboratory Results 11/04/17 04:50 11/04/17 04:50 11/03/17 11/04/17 11/05/17 05:59 05:59 05:59 Intake Total 555 Output Total 225 Balance 330 - Physical Exam Constitutional: no apparent distress Eyes: PERRL, EOMI Ears, Nose, Mouth, Throat: moist mucous membranes, hearing normal Cardiovascular: regular rate and rhythym Respiratory: no respiratory distress Gastrointestinal: distension Skin: warm Neurologic: AAOx3 Psychiatric: interacting appropriately, not anxious, not encephalopathic ICD10 Worksheet Patient Problems: Problems Problem Status Onset Hyponatremia Acute Obstruction of right ureter Acute SBO (small bowel obstruction) Acute Abdominal pain Acute Ascites Acute Ascites, malignant Acute Cervical cancer Acute Intractable generalized abdominal pain Acute Nausea and vomiting Acute Partial small bowel obstruction Acute
--- NOTE | 2017-11-04 14:41 | ASMTCMCOM ---
CM Note CM Note Notes: Pt with hx of cervical ca admitted for ABO. Pt has admitted for same in past. She will be treated conservatively. Pt is current with [facility] for palliative care. Will fax them clinicals. SANGITA to follow. Date Signed: 11/04/2017 02:40 PM Electronically Signed By:Judy Krueger LCSW
--- NOTE | 2017-11-04 17:26 | GCON ---
[f rep st] CONSULTATION ONCOLOGY INITIAL VISIT REASON FOR VISIT: Metastatic cervical cancer. PRIMARY ONCOLOGIST: Dr. Joselo Rdz. HISTORY OF PRESENT ILLNESS: The patient is a 66-year-old woman who was diagnosed in September 2008 with me tastatic cervical cancer. She had seen Dr. Negin Rodrigez in 2009, and Dr. Mays for a while, but much of her treatment she was receiving through [facility]. Diagnosis in September when she had an abnorma l Pap smear in 2008, which led to a cone biopsy that confirmed the diagnosis. She was seen by Dr. Lindsay, but I do not believe she had any standard surgery or other therapy. In 2015, she developed ab dominal distention, which revealed abdominal ascites and multiple pelvic masses. In February, she pre sented with a small-bowel obstruction. It was around that time she was seen by Dr. Mays and under went exploratory laparotomy, radical debulking and had extensive metastatic squamous cell carcinoma. Disease was right spread throughout the intraabdominal and retroperitoneal space. Dr. Mays recom mended standard chemotherapy, but she returned back to [facility] and received "low-dose" chemotherapy t reatments. Some of the drugs include possibly 5-FU with worsening disease. She received some gemcit abine and carboplatin and then received low-dose carboplatin. Her last PET-CT scan in May 2017 s howed large volume ascites with peripheral hypermetabolic activity and nodularity suggesting peritone al disease. She was seen by Dr. 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 She was seen by Dr. Pérez at [facility] for a possible st udy, but did not follow up. 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 Edwin Cedillo, receiving glutathione and vitamin C and a ketogenic diet. She was hospitalized in July for a bowel obstruction, treated with conservative therapy. She was also seen in September by Dr Brenton Urban after admission for the same. She presented to the ER with symptoms of weakness, fatigue, inability to take in oral and no flatus. She was seen by Dr. Minor, who did not recommend a surgical approach, just medical management. Sh e is starting to pass gas, and she is drinking some fruit juices. She feels much better after the IV hydration. She would like to see about getting IV hydration at home. ALLERGIES: She is allergic to sulfa and cisplatin. MEDICATIONS: Home medications include herbs. She has recently been doing high-dose cannabis, proges terone, and pork thyroid. PAST MEDICAL HISTORY: Chronic illnesses include the cervical cancer, as per HPI; hypothyroidism; and recurrent bowel small bowel obstructions, as per HPI. She has also a history of compression fractur e and severe protein calorie malnutrition. PAST SURGICAL HISTORY: Includes debulking surgery, cone biopsy, wisdom teeth extraction, tonsillecto my, and appendectomy. 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 She is a nonsmo ker, nondrinker. FAMILY HISTORY: Noncontributory. REVIEW OF SYSTEMS: Ten-point review of systems performed. Pertinent positives as per HPI, otherwise negative. PHYSICAL EXAM: VITAL SIGNS: Temperature is 36.3, pulse 98. Blood pressure is 128/85. GENERAL: Justin lee is a cachectic-appearing woman but sitting up in a chair, in no distress. HEENT: Unremarkable. L UNGS: Clear. CARDIAC: Hyperdynamic, but regular, with a flow murmur. ABDOMEN: Distended, sort of firm but nontender. Bowel sounds are hyperactive. EXTREMITIES: No edema. NEUROLOGICAL: Is gross ly intact. LABS: Mild anemia at 11.3. The rest of her CBC is unremarkable. Sodium was a little low at 129. N ow it is up to 133. The rest of her chemistries and LFTs are unremarkable, except for albumin of 2.7 . IMPRESSION: 1. Recurrent small-bowel obstructions from cervical cancer. 2. Metastatic cervical cancer. 3. Severe protein calorie malnutrition. She has rejected pretty much all standard therapies, and at this point, is not sure if anything would be effective, except for one could consider nivolumab if she is interested, but she does not appear to be at this time. I agree with conservative medical management. She may be getting better. I thi nk it would be reasonable to consider setting her up with home IV infusions, but she would need a PIC C line placed. She was interested in considering this. Maybe that could be set up just before disch arged. I do not have any further recommendations. /[id number]/MODL
[2017-11-04] MEDS: PROGESTERONE TP SCH (21:29)
[2017-11-05] MEDS: NS 1,000 ML IV SCH (04:55)
[2017-11-05] MEDS: ENOXAPARIN 40 MG/0.4 ML SYR SC SCH (08:29)
[2017-11-05] MEDS: THYROID PORK 32.5 MG PO SCH (08:33)
--- NOTE | 2017-11-05 14:44 | HOSPPROG ---
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 Munoz #SPCMN with cachexia #Loculated Ascites #Hyponatremia due to Dehydration, improving #FTT Plan: She is felt not to be a surgical candidate. Surgery has signed off cont with conservative mgmt, improving slowly CLD, add protein packet, monitor labs She is reluctant to try supplemental nutrition, TPN She would like to have a PICC line placed and do IVF hydration as an outpatient. I will d/w the team including CM to see if this is an option to prevent dehydration Paracentesis as needed Lovenox for DVT proph Subjective: still with distended abd. She feels better. Some Flatus. Objective: Vital Signs Temp Pulse Resp BP Pulse Ox 36.6 C 109 H 16 129/96 H 95 11/05/17 12:50 11/05/17 12:50 11/05/17 12:50 11/05/17 12:50 11/05/17 12:50 Laboratory Results 11/04/17 04:50 11/05/17 04:33 11/04/17 11/05/17 11/06/17 05:59 05:59 05:59 Intake Total 555 1135 Output Total 225 Balance 330 1135 - Physical Exam Constitutional: no apparent distress, not in pain Eyes: PERRL, EOMI Ears, Nose, Mouth, Throat: moist mucous membranes, hearing normal Cardiovascular: No edema Respiratory: no respiratory distress, no rales or rhonchi, clear to auscultation Gastrointestinal: normoactive bowel sounds, soft, non-tender abdomen, distension Skin: warm Neurologic: AAOx3 Psychiatric: interacting appropriately, not anxious, not encephalopathic Lymph, Heme, Immunologic: No petechiae ICD10 Worksheet Patient Problems: Problems Problem Status Onset Hyponatremia Acute Obstruction of right ureter Acute SBO (small bowel obstruction) Acute Abdominal pain Acute Ascites Acute Ascites, malignant Acute Cervical cancer Acute Intractable generalized abdominal pain Acute Nausea and vomiting Acute Partial small bowel obstruction Acute
--- NOTE | 2017-11-05 16:04 | ASMTCMCOM ---
CM Note CM Note Notes: Chart reviewed. Patient is suffering from dehydration and malnutrition Would like to pursue at home hydration. Referral to [facility], awaiting pricing, [facility] is okay to open this Wednesday. If agreeable to pricing, PICC can be ordered. CM to follow. Plan: home with [facility] and [facility] Date Signed: 11/05/2017 04:03 PM Electronically Signed By:Tiny Quesada RN
[2017-11-05] MEDS: PROGESTERONE TP SCH (21:36)
[2017-11-06] MEDS: NS 1,000 ML IV SCH ×2 (00:01→23:13)
[2017-11-06] MEDS: ENOXAPARIN 40 MG/0.4 ML SYR SC SCH (07:45)
[2017-11-06] MEDS: THYROID PORK 32.5 MG PO SCH (07:49)
--- NOTE | 2017-11-06 12:36 | PDRADPN ---
Radiology Procedure Note Date of Procedure: 11/06/17 Radiologist: Adam Grossman Anesthesia: Local (Specify) Pre-op Diagnosis: dehydrated Post-op Diagnosis: same Indication: iv hydration Procedure: RUE SL PICC Finding(s): patent brachial vein. 35cm SL power Picc. tip at cavoatrial junction. ok to use. Inf/Abcess present in the surg proc area at time of surgery?: No EBL: Minimal Complications: none
--- NOTE | 2017-11-06 13:48 | HOSPPROG ---
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 Munoz #SPCMN with cachexia #Loculated Ascites #Hyponatremia due to Dehydration, improving #FTT Plan: She is felt not to be a surgical candidate. Surgery has signed off cont with conservative mgmt, improving slowly CLD, cont with protein packet, monitor labs She is requesting TPN but does not want the standard formula. Instead she is requesting that she get all the ingredients to determine if she wants them. Will consult Pharmacy. She would like to have a PICC line placed and do IVF hydration as an outpatient. A PICC line has been placed and this will be arranged. Paracentesis as needed Palliative Care if not already ordered Lovenox for DVT proph Subjective: She got a PICC line today Objective: Vital Signs Temp Pulse Resp BP Pulse Ox 36.4 C 86 18 119/83 H 96 11/06/17 07:46 11/06/17 07:46 11/06/17 07:46 11/06/17 07:46 11/06/17 07:46 Laboratory Results 11/04/17 04:50 11/05/17 04:33 11/05/17 11/06/17 11/07/17 05:59 05:59 05:59 Intake Total 1135 2436 Output Total 400 Balance 1135 2036 - Physical Exam Constitutional: no apparent distress Eyes: PERRL, EOMI Ears, Nose, Mouth, Throat: moist mucous membranes, hearing normal Cardiovascular: regular rate and rhythym Respiratory: no respiratory distress Gastrointestinal: distension Genitourinary: no bladder fullness Skin: warm Musculoskeletal: generalized weakness Neurologic: AAOx3 Psychiatric: interacting appropriately, not anxious, not encephalopathic Lymph, Heme, Immunologic: No petechiae ICD10 Worksheet Patient Problems: Problems Problem Status Onset Hyponatremia Acute Obstruction of right ureter Acute SBO (small bowel obstruction) Acute Abdominal pain Acute Ascites Acute Ascites, malignant Acute Cervical cancer Acute Intractable generalized abdominal pain Acute Nausea and vomiting Acute Partial small bowel obstruction Acute
[2017-11-06] MEDS: PROGESTERONE TP SCH (20:08)
[2017-11-07] MEDS: THYROID PORK 32.5 MG PO SCH (07:25)
[2017-11-07] MEDS: ENOXAPARIN 40 MG/0.4 ML SYR SC SCH (07:26)
[2017-11-07] MEDS ORDERED: K PHOS 10 MMOL in D5W 250 ML IV ONE (09:30)
[2017-11-07] MEDS ORDERED: D10W 1,000 ML IV PRN (09:43)
--- NOTE | 2017-11-07 09:46 | HOSPPROG ---
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 Munoz #SPCMN with cachexia #Loculated Ascites #Hyponatremia due to Dehydration, resolved #FTT Plan: She is felt not to be a surgical candidate. Surgery has signed off cont with conservative mgmt, improving slowly CLD, cont with protein packet, monitor labs Start TPN today. She will need to be set up for TPN as an outpatient. CM to see. PICC placed Paracentesis as needed Palliative Care Refusing Lovenox, will d/c. Start SCD's Subjective: no cp or sob. still with distended abd. no cp or sob. agrees to TPN Objective: Vital Signs Temp Pulse Resp BP Pulse Ox 36.4 C 85 15 133/93 H 97 11/07/17 09:22 11/07/17 09:22 11/07/17 09:22 11/07/17 09:22 11/07/17 09:22 Laboratory Results 11/04/17 04:50 11/06/17 13:30 11/06/17 11/07/17 11/08/17 05:59 05:59 05:59 Intake Total 2436 1000 1004 Output Total 400 400 Balance 2036 600 1004 - Physical Exam Constitutional: no apparent distress, not in pain, chronically ill appearing Eyes: PERRL, EOMI Ears, Nose, Mouth, Throat: moist mucous membranes Cardiovascular: regular rate and rhythym, edema (trace LE) Respiratory: no respiratory distress, no rales or rhonchi Gastrointestinal: distension Skin: warm Neurologic: AAOx3 Psychiatric: interacting appropriately, not anxious, not encephalopathic Lymph, Heme, Immunologic: No petechiae ICD10 Worksheet Patient Problems: Problems Problem Status Onset Hyponatremia Acute Obstruction of right ureter Acute SBO (small bowel obstruction) Acute Abdominal pain Acute Ascites Acute Ascites, malignant Acute Cervical cancer Acute Intractable generalized abdominal pain Acute Nausea and vomiting Acute Partial small bowel obstruction Acute
[2017-11-07 11:37] LABS: INR 1.24 (0.83-1.16); PROTIME(PATIENT) 15.8 SEC (12.0-15.0)
[2017-11-07 11:53] LABS: PLATELET COUNT 315 10^3/uL (150-400)
--- NOTE | 2017-11-07 13:33 | ASMTCMCOM ---
CM Note CM Note Notes: Chart reviewed. Patient is now agreeable to try TPN as she is severely malnourished. She shares with me that she is also dehydrated and is inquiring about hydration IV therapy as well. Will need copy of TPN orders early tomorrow to send to [facility]. They have a turn around time for securing TPN from their pharmacy. CM to follow. Plan: Home with Home infusion and HHC via [facility]. Date Signed: 11/07/2017 01:32 PM Electronically Signed By:Tiny Quesada RN
[2017-11-07] MEDS: TPN 1 EA BAG IV SCH (20:12)
[2017-11-07] MEDS: PROGESTERONE TP SCH (20:15)
[2017-11-08] MEDS: THYROID PORK 32.5 MG PO SCH (04:32)
[2017-11-08 06:00] LABS: INR 1.15 (0.83-1.16); PROTIME(PATIENT) 14.9 SEC (12.0-15.0)
[2017-11-08 06:05] LABS: PLATELET COUNT 254 10^3/uL (150-400)
--- NOTE | 2017-11-08 12:34 | HOSPPROG ---
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 Munoz #SPCMN with cachexia #Loculated Ascites #Hyponatremia due to Dehydration, resolved #FTT # refeeding syndrome Plan: She is felt not to be a surgical candidate. Surgery has signed off cont with conservative mgmt, improving slowly CLD, cont with protein packet, monitor labs Continue TPN PICC placed Paracentesis today Refusing Lovenox, will d/c. Start SCD's Subjective: Reports abdominal distention today. She does not feel well since starting TPN and is feeling discouraged. Objective: Vital Signs Temp Pulse Resp BP Pulse Ox 36.9 C 100 17 128/102 H 96 11/08/17 07:39 11/08/17 07:39 11/08/17 07:39 11/08/17 07:39 11/08/17 07:39 Laboratory Results 11/08/17 05:36 11/08/17 05:36 11/07/17 11/08/17 11/09/17 05:59 05:59 05:59 Intake Total 1000 2525 Output Total 400 350 Balance 600 2175 PT 14.9 SEC (12.0-15.0) 11/08/17 05:36 INR 1.15 (0.83-1.16) 11/08/17 05:36 - Physical Exam Constitutional: chronically ill appearing, cachectic Cardiovascular: regular rate and rhythym, no murmur, rub, or gallop Respiratory: no respiratory distress, no rales or rhonchi, clear to auscultation Gastrointestinal: normoactive bowel sounds, distension, No guarding, No rebound Neurologic: AAOx3 ICD10 Worksheet Patient Problems: Problems Problem Status Onset SBO (small bowel obstruction) Acute Ascites Acute Nausea and vomiting Acute Ascites, malignant Acute Cervical cancer Acute Intractable generalized abdominal pain Acute Partial small bowel obstruction Acute Abdominal pain Acute Hyponatremia Acute Obstruction of right ureter Acute
[2017-11-08] MEDS ORDERED: D50W 25 GM/50 ML SYR IVP PRN (12:41)
[2017-11-08] MEDS ORDERED: LIDOCAINE 1% 300 MG/30 ML SDV ONE (13:19)
[2017-11-08] MEDS ORDERED: K PHOS 10 MMOL in D5W 250 ML IV ONE (14:00)
--- NOTE | 2017-11-08 14:07 | ASMTCMCOM ---
CM Note CM Note Notes: Chart reviewed. Per Princeta, patient should be covered for home TPN infusion as she is not a surgical candidate and she is severely malnourished. patient reports she feels unwell on TPN. CM to follow. Plan: Home with [place] and [facility] RN, [facility] palliative also following. Date Signed: 11/08/2017 02:06 PM Electronically Signed By:Tiny Quesada RN
--- NOTE | 2017-11-08 14:33 | PDRADPN ---
Radiology Procedure Note Date of Procedure: 11/08/17 Radiologist: Adam Grossman Anesthesia: Local (Specify) Pre-op Diagnosis: malignant ascites Post-op Diagnosis: same Indication: distension Procedure: paracentesis Finding(s): 400mL drained sequentially from right, then left sided locules. Deeper, but inaccessible locules remain. Inf/Abcess present in the surg proc area at time of surgery?: No EBL: Minimal Complications: none
[2017-11-08] MEDS: INSULIN LISPRO 100 UNIT/ML SC SCH ×2 (14:51→18:05)
[2017-11-08] MEDS: PROGESTERONE TP SCH (21:36)
[2017-11-08] MEDS: TPN 1 EA BAG IV SCH (21:36)
[2017-11-09] MEDS: INSULIN LISPRO 100 UNIT/ML SC SCH ×4 (01:11→19:20)
[2017-11-09 06:21] LABS: PLATELET COUNT 287 10^3/uL (150-400)
[2017-11-09 06:55] LABS: INR 1.14 (0.83-1.16); PROTIME(PATIENT) 14.8 SEC (12.0-15.0)
[2017-11-09] MEDS: THYROID PORK 32.5 MG PO SCH (08:18)
[2017-11-09] MEDS ORDERED: K PHOS 15 MMOL in D5W 250 ML IV ONE (08:30)
--- NOTE | 2017-11-09 15:28 | HOSPPROG ---
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 Munoz #SPCMN with cachexia requiring TPN given she is not a candidate for PEG #Loculated Ascites s/p paracentesis 11/08 of 400ml of fluid, but unable to drain deep pocket of fluid #Hyponatremia due to Dehydration, resolved #FTT # refeeding syndrome with low phos #hyperglycemia from tpn Plan: She is felt not to be a surgical candidate. Surgery has signed off cont with conservative mgmt, improving slowly CLD, cont with protein packet, monitor labs Continue TPN Refusing Lovenox, will d/c. Start SCD's dispo: plan to dc home with tpn once tpn is at goal Subjective: now passing gas. abd continues to be distended. no fever or chills Objective: Vital Signs Temp Pulse Resp BP Pulse Ox 36.5 C 115 H 16 117/91 H 96 11/09/17 08:50 11/09/17 08:50 11/09/17 08:50 11/09/17 08:50 11/09/17 08:50 Laboratory Results 11/09/17 06:05 11/09/17 06:05 11/08/17 11/09/17 11/10/17 05:59 05:59 05:59 Intake Total 2525 2176 Output Total 350 1100 350 Balance 2175 1076 -350 PT 14.8 SEC (12.0-15.0) 11/09/17 06:05 INR 1.14 (0.83-1.16) 11/09/17 06:05 - Physical Exam Constitutional: no apparent distress, not in pain, chronically ill appearing Cardiovascular: regular rate and rhythym, no murmur, rub, or gallop Respiratory: no respiratory distress, no rales or rhonchi, clear to auscultation Gastrointestinal: normoactive bowel sounds, soft, non-tender abdomen, distension Neurologic: AAOx3 ICD10 Worksheet Patient Problems: Problems Problem Status Onset SBO (small bowel obstruction) Acute Ascites Acute Nausea and vomiting Acute Ascites, malignant Acute Cervical cancer Acute Intractable generalized abdominal pain Acute Partial small bowel obstruction Acute Abdominal pain Acute Hyponatremia Acute Obstruction of right ureter Acute
--- NOTE | 2017-11-09 15:48 | ASMTCMCOM ---
CM Note CM Note Notes: Chart reviewed. Patient underwent paracentesis for 400 ml. She is experiencing refeeding syndrome, Once her TPN is at goal rate she may be medically c;leared for discharge to home with [facility] [place] and [facility] in additional to [facility]. Plan: As outlined above. Date Signed: 11/09/2017 03:48 PM Electronically Signed By:Tiny Quesada RN
[2017-11-09] MEDS: PROGESTERONE TP SCH (21:11)
[2017-11-09] MEDS: TPN 1 EA BAG IV SCH (21:11)
[2017-11-10] MEDS: INSULIN LISPRO 100 UNIT/ML SC SCH ×4 (00:08→18:15)
[2017-11-10] MEDS: ALTEPLASE 2 MG VIAL IVP PRN (05:55)
[2017-11-10] MEDS: THYROID PORK 32.5 MG PO SCH (07:53)
[2017-11-10 08:34] LABS: INR 1.09 (0.83-1.16); PROTIME(PATIENT) 14.3 SEC (12.0-15.0)
[2017-11-10 08:51] LABS: PLATELET COUNT 274 10^3/uL (150-400)
--- NOTE | 2017-11-10 09:06 | HOSPPROG ---
Hospitalist Progress Note Assessment/Plan: * Metastatic cervical cancer - refused conventional tx in past * Peritoneal carcinomatosis with refractory loculated ascites -s/p paracentesis - repeat prn -unable to completely evacuate all pockets * SBO - acute on chronic - due to malignancy -not surgical candidate -home with TPN/NPO * Severe protein calorie malnutrition - TPN * Refeeding syndrome -TPN finally to goal - watch electrolytes closely Prognosis poor, already enrolled with home palliative care with [facility] appropriate but she does not appear ready. Subjective: Lots of flatus Objective: Vital Signs Temp Pulse Resp BP Pulse Ox 36.5 C 104 H 18 115/83 H 96 11/10/17 07:58 11/10/17 07:58 11/10/17 07:58 11/10/17 07:58 11/10/17 07:58 Laboratory Results 11/10/17 07:40 11/10/17 07:40 11/09/17 11/10/17 11/11/17 05:59 05:59 05:59 Intake Total 2176 1325 Output Total 1100 650 Balance 1076 675 PT 14.3 SEC (12.0-15.0) 11/10/17 07:40 INR 1.09 (0.83-1.16) 11/10/17 07:40 Old chart reviewed - extensive history of refusing conventional tx and alternative tx pursued CT abd - loculated ascites, SBO - Physical Exam Constitutional: no apparent distress, appears nourished, not in pain Cardiovascular: regular rate and rhythym, no murmur, rub, or gallop Respiratory: no respiratory distress, no rales or rhonchi, clear to auscultation Gastrointestinal: ascites, distension, No tenderness, No guarding, No rebound Skin: no rashes or abrasions, no fluctuance, no induration Neurologic: AAOx3, sensation intact bilaterally Psychiatric: interacting appropriately, not anxious, not encephalopathic, thought process linear ICD10 Worksheet Patient Problems: Problems Problem Status Onset Hyponatremia Acute Obstruction of right ureter Acute SBO (small bowel obstruction) Acute Abdominal pain Acute Ascites Acute Ascites, malignant Acute Cervical cancer Acute Intractable generalized abdominal pain Acute Nausea and vomiting Acute Partial small bowel obstruction Acute
[2017-11-10] MEDS: TPN 1 EA BAG IV SCH (21:35)
[2017-11-10] MEDS: PROGESTERONE TP SCH (21:39)
[2017-11-11] MEDS: INSULIN LISPRO 100 UNIT/ML SC SCH ×5 (01:08→23:53)
[2017-11-11 06:17] LABS: PLATELET COUNT 224 10^3/uL (150-400)
[2017-11-11] MEDS: THYROID PORK 32.5 MG PO SCH (09:38)
--- NOTE | 2017-11-11 13:54 | ASMTCMCOM ---
CM Note CM Note Notes: A ict sales representative from [facility] met with Pt. She inquired into when D/C will be; this is still to be determined. daxa will be notified when this is decided. Date Signed: 11/11/2017 01:54 PM Electronically Signed By:Shruthi Pinedo
--- NOTE | 2017-11-11 14:38 | HOSPPROG ---
Hospitalist Progress Note Assessment/Plan: * Metastatic cervical cancer - refused conventional tx in past * Peritoneal carcinomatosis with refractory loculated ascites -s/p paracentesis - repeat prn -unable to completely evacuate all pockets -patient desires consult with Dr. Gooden for possible evacuation of deep pockets -repeat US eval for fluid * SBO - acute on chronic - due to malignancy -not surgical candidate -home with TPN/NPO * Severe protein calorie malnutrition - TPN * Refeeding syndrome -resolving * Hydronephrosis due to obstruction -renal function still okay Prognosis poor, already enrolled with home palliative care with [facility] appropriate but she does not appear ready. d/w Dr. 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 fired oncology - anticipate hydro will progress leading to eventual renal failure and Subjective: Strength is better, but abdomen has become severely disteded again Objective: Vital Signs Temp Pulse Resp BP Pulse Ox 36.6 C 102 H 16 120/89 H 95 11/11/17 07:25 11/11/17 07:25 11/11/17 07:25 11/11/17 07:25 11/11/17 07:25 Laboratory Results 11/11/17 05:10 11/11/17 05:10 11/10/17 11/11/17 11/12/17 05:59 05:59 05:59 Intake Total 1325 735 Output Total 650 450 Balance 675 285 PT 14.3 SEC (12.0-15.0) 11/10/17 07:40 INR 1.09 (0.83-1.16) 11/10/17 07:40 - Physical Exam Constitutional: no apparent distress, appears nourished, not in pain Cardiovascular: regular rate and rhythym, no murmur, rub, or gallop Respiratory: no respiratory distress, no rales or rhonchi, clear to auscultation Gastrointestinal: soft, non-tender abdomen, ascites, distension, No tenderness, No guarding, No rebound Skin: no rashes or abrasions, no fluctuance, no induration Neurologic: AAOx3, sensation intact bilaterally Psychiatric: interacting appropriately, not anxious, not encephalopathic, thought process linear ICD10 Worksheet Patient Problems: Problems Problem Status Onset Hyponatremia Acute Obstruction of right ureter Acute SBO (small bowel obstruction) Acute Abdominal pain Acute Ascites Acute Ascites, malignant Acute Cervical cancer Acute Intractable generalized abdominal pain Acute Nausea and vomiting Acute Partial small bowel obstruction Acute
[2017-11-11] MEDS: PROGESTERONE TP SCH (20:55)
[2017-11-11] MEDS: TPN 1 EA BAG IV SCH (20:55)
[2017-11-12] MEDS: INSULIN LISPRO 100 UNIT/ML SC SCH ×3 (04:53→18:46)
[2017-11-12] MEDS: THYROID PORK 32.5 MG PO SCH (08:11)
--- NOTE | 2017-11-12 09:27 | ASMTCMCOM ---
CM Note CM Note Notes: CM met with Pt. Pt is anxious to leave hospital and asked for information re D/C date. She is looking into staying at a friend's home so that she doesn't have to navigate stairs. She will let CM know if this occurs so that [facility] can be notified of the address change. D/C Plan: Home with [facility] and [facility] [place]. Date Signed: 11/12/2017 09:26 AM Electronically Signed By:Shruthi Pinedo
--- NOTE | 2017-11-12 12:21 | HOSPPROG ---
Hospitalist Progress Note Assessment/Plan: * Metastatic cervical cancer - refused conventional tx in past * Peritoneal carcinomatosis with refractory loculated ascites -s/p paracentesis 11/[address] Grossman -Dr. Gooden to drain deeper pockets today * SBO - acute on chronic - due to malignancy -not surgical candidate -home with TPN/NPO * Severe protein calorie malnutrition - TPN * Refeeding syndrome -resolving * Hydronephrosis due to obstruction -renal function still okay Prognosis poor, already enrolled with home palliative care with [facility] appropriate but she does not appear ready. Reconsult palliative care to dive deeper regarding her poor prognosis and her level of understanding. d/w Dr. 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 fired oncology - anticipate hydro will progress leading to eventual renal failure and Need to arrange meeting with palliative care with patient (with her family present) to discuss prognosis. Current plan of DC home with indefinite TPN will likely rapidly fail. She can not do tube feed due to SBO Length of need for TPN is lifelong Subjective: Very uncomfortable in abdomen Objective: Vital Signs Temp Pulse Resp BP Pulse Ox 36.3 C 100 20 131/95 H 97 11/12/17 08:15 11/12/17 08:15 11/12/17 08:15 11/12/17 08:15 11/12/17 08:15 Laboratory Results 11/11/17 05:10 11/12/17 04:05 11/11/17 11/12/17 11/13/17 05:59 05:59 05:59 Intake Total 735 1745 Output Total 450 1060 Balance 285 685 PT 14.3 SEC (12.0-15.0) 11/10/17 07:40 INR 1.09 (0.83-1.16) 11/10/17 07:40 all imaging reviewed with DR. Gooden regarding options for drainage - no good option for janice drain. She will drain deep pockets today - Time Spent With Patient Time Spent with Patient: greater than 35 minutes Time Spent with Patient: Greater than 35 minutes spent on this patients care, greater than 50% of time spent counseling, educating, and coordinating care regarding the above mentioned plan. - Physical Exam Constitutional: no apparent distress, appears nourished, not in pain Cardiovascular: regular rate and rhythym, no murmur, rub, or gallop Respiratory: no respiratory distress, no rales or rhonchi, clear to auscultation Gastrointestinal: ascites, distension, No tenderness, No guarding, No rebound Skin: no rashes or abrasions, no fluctuance, no induration Neurologic: AAOx3, sensation intact bilaterally Psychiatric: interacting appropriately, not anxious, not encephalopathic, thought process linear ICD10 Worksheet Patient Problems: Problems Problem Status Onset Hyponatremia Acute Obstruction of right ureter Acute SBO (small bowel obstruction) Acute Abdominal pain Acute Ascites Acute Ascites, malignant Acute Cervical cancer Acute Intractable generalized abdominal pain Acute Nausea and vomiting Acute Partial small bowel obstruction Acute
--- NOTE | 2017-11-12 14:14 | ASMTCMCOM ---
CM Note CM Note Notes: Pt received news that she will be having a procedure on Wednesday that she hopes will bring her relief; Dr Gooden will do a paracentesis under anesthesia on Wednesday to access deep pocket transvaginally. Pt indicated that her friend, Faina, is devloping a plan gor where she will live once she is D/C ed from hospital. D/C Plan: D/C location remains unclear, but will be followed by [facility] and [facility]. Date Signed: 11/12/2017 02:14 PM Electronically Signed By:Shruthi Pinedo
[2017-11-12] MEDS ORDERED: LIDOCAINE 1% 300 MG/30 ML SDV ONE (16:02)
[2017-11-12] MEDS: TPN 1 EA BAG IV SCH (21:49)
[2017-11-12] MEDS: PROGESTERONE TP SCH (21:50)
[2017-11-13] MEDS: INSULIN LISPRO 100 UNIT/ML SC SCH ×4 (00:46→18:12)
[2017-11-13] MEDS: THYROID PORK 32.5 MG PO SCH (07:28)
--- NOTE | 2017-11-13 17:22 | HOSPPROG ---
Hospitalist Progress Note Assessment/Plan: The patient is a 66-year-old female with PMH cervical cancer who was admitted for refractory ascites/peritoneal carcinomatosis and SBO secondary to malignancy. ASSESSMENT/PLAN: Stage IV cervical cancer with peritoneal carcinomatosis Refractory loculated ascites, status post paracentesis Presacral abscess, s/p drainage SBO-acute on chronic, secondary to malignancy Severe protein calorie malnutrition, on TPN Refeeding syndrome-resolved Hydronephrosis, secondary to obstruction Constipation, resolved -Check labs in AM -Change diet - Instructed pt to try small sips of water and ice chips tonight. Perhaps some clear liquids in AM for breakfast. -Consider repeat CT scan of abd/pelvis to see if any more pelvic fluid can be drained by IR (see IR US guided Bx report). -Consider repeat paracentesis if ascites gets worse. -Pt to go home w/ TPN (lifelong). Possibly NPO, if SBO persists. -Pt has refused conventional cancer Tx in the past. She had fired Oncology in the past. She has [facility] following her. Her sister is a retired RN and her is very helpful, so it sounds like she has adequate home care. She plans to rent a ranch-level apartment from a friend in [place] because she has limited mobility. -Poor prognosis. Recommend additional meetings w/ Pall Med and family and patient on Wednesday. VTE prophylaxis: Lovenox Code Status: Full code Disposition: Med surge This patient is new to me. Reviewed patient's chart/records for this visit. ____ Subjective: SUBJECTIVE: Patient feels much better today. She just had a craniosacral therapy with her friend Patria. She felt much relief after interventional Radiology drained her presacral abscess. She was very constipated before, but now she has diarrhea. Objective: Vital Signs Temp Pulse Resp BP Pulse Ox 36.6 C 90 17 121/84 H 96 11/13/17 16:00 11/13/17 16:00 11/13/17 16:00 11/13/17 16:00 11/13/17 16:00 Laboratory Results 11/11/17 05:10 11/12/17 04:05 11/12/17 11/13/17 11/14/17 05:59 05:59 05:59 Intake Total 1745 1581 Output Total 1060 300 Balance 685 1281 PT 14.3 SEC (12.0-15.0) 11/10/17 07:40 INR 1.09 (0.83-1.16) 11/10/17 07:40 OBJECTIVE: Physical Exam: General: The patient is an elderly female who is alert and in no acute distress. HEENT: normocephalic, extraocular movements intact, conjunctivae clear. Mucous membranes moist. Neck: trachea midline, no visible masses. Abd: soft and mildly distended. Bowel sounds present. Non tender throughout. Musculoskeletal: Normal muscle tone/bulk. Neuro: cranial nerves II XII grossly intact. Intact gross motor and sensory function. Psych: Appropriate mood and appropriate affect. Skin: + pallor. No petechiae. Heme/lymph: +3 pitting peripheral edema at bilateral lower extremities. Labs/Imaging/Other Tests: Personally reviewed/interpreted. US Abscess Drainage Transgluteal: 1. Ultrasound-guided transgluteal pelvic fluid collection drainage via right-sided approach, as above, removing 750 mL, with complete collapse of the presacral fluid collection. 2. Residual more centrally located fluid collection that is surrounded by bowel , not amenable to percutaneous drainage at this time. 3. If the patient's small bowel obstruction improves, and the amount of surrounding air-fluid level decompresses to a point where the patient can lay prone, and if at that point still clinically relevant, repeat CT scan can be performed to see if that more centrally located pelvic fluid collection is amenable to CT-guided drainage. ICD10 Worksheet Patient Problems: Problems Problem Status Onset Hyponatremia Acute Obstruction of right ureter Acute SBO (small bowel obstruction) Acute Abdominal pain Acute Ascites Acute Ascites, malignant Acute Cervical cancer Acute Intractable generalized abdominal pain Acute Nausea and vomiting Acute Partial small bowel obstruction Acute
[2017-11-13] MEDS: TPN 1 EA BAG IV SCH (20:47)
[2017-11-13] MEDS: PROGESTERONE TP SCH (22:00)
[2017-11-14] MEDS: INSULIN LISPRO 100 UNIT/ML SC SCH ×4 (01:53→18:57)
[2017-11-14] MEDS: THYROID PORK 32.5 MG PO SCH (09:51)
--- NOTE | 2017-11-14 10:02 | HOSPPROG ---
Hospitalist Progress Note Assessment/Plan: 66-year-old with history of metastatic cervical cancer who has refuse conventional treatments in the past. She currently is complicated by peritoneal carcinomatosis with refractory loculated ascites for which she has had paracentesis # metastatic cervical cancer metastasized to the peritoneum, with recurrent loculated ascites status post paracentesis, multiple. * Continue to monitor symptoms she is status post paracentesis on 11/08 and * Plans on following up in [place] for Oncology * Hospice appropriate but patient is not ready and plans on palliative care with [facility] at home * Main issue is nutrition due to her recurrent small-bowel obstructions due to the malignancy. She is currently on TPN and will go home with TPN. # small bowel obstruction, acute on chronic due to malignancy with severe protein calorie malnutrition * TPN * Patient with large amount of bowel movements last night * Clear liquids and sips as tolerated, if this exacerbate symptoms she will be back to NPO status * I anticipate discharge home Wednesday with home care. * She states she will have [facility] care there as well, not interested in hospice * Brief eating syndrome, resolving # hydronephrosis due to obstruction, continue to monitor renal function Prognosis poor, already enrolled with home palliative care with [facility] appropriate but she does not appear ready. Reconsult palliative care to dive deeper regarding her poor prognosis and her level of understanding. d/w Dr. 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 fired oncology - anticipate hydro will progress leading to eventual renal failure and Need to arrange meeting with palliative care with patient (with her family present) to discuss prognosis. Current plan of DC home with indefinite TPN will likely rapidly fail. Patient is hoping to go home Wednesday morning on TPN Subjective: Patient new to me and chart reviewed. She had a large amount of bowel movement overnight after 700+ fluid drained from a pocket in her abdomen. Objective: Vital Signs Temp Pulse Resp BP Pulse Ox 36.6 C 90 16 116/77 97 11/14/17 08:29 11/14/17 08:29 11/14/17 08:29 11/14/17 08:29 11/14/17 08:29 Laboratory Results 11/11/17 05:10 11/14/17 04:30 11/13/17 11/14/17 11/15/17 05:59 05:59 05:59 Intake Total 1581 300 Output Total 300 200 Balance 1281 100 PT 14.3 SEC (12.0-15.0) 11/10/17 07:40 INR 1.09 (0.83-1.16) 11/10/17 07:40 - Physical Exam Constitutional: chronically ill appearing, cachectic Eyes: PERRL, EOMI Ears, Nose, Mouth, Throat: dry mucous membranes Cardiovascular: regular rate and rhythym, systolic murmur Respiratory: no respiratory distress Gastrointestinal: distension, No normoactive bowel sounds Skin: No normal color (Pale) Musculoskeletal: generalized weakness Neurologic: AAOx3 Psychiatric: interacting appropriately ICD10 Worksheet Patient Problems: Problems Problem Status Onset SBO (small bowel obstruction) Acute Ascites Acute Nausea and vomiting Acute Ascites, malignant Acute Cervical cancer Acute Intractable generalized abdominal pain Acute Partial small bowel obstruction Acute Abdominal pain Acute Hyponatremia Acute Obstruction of right ureter Acute
--- NOTE | 2017-11-14 17:47 | ASMTCMCOM ---
CM Note CM Note Notes: Reviewed chart regarding discharge plan of care, pt's progress. Call received from Tosin Gil with [facility]. Per Tosin, second Palliative Care consult ordered to further discuss pt's poor prognosis and terminal operations supervisor plan. Melvin Jama to meet with pt on Wednesday11/15/17. Per notes, pt wishing to discharge home on Wednesday11/17/17 with TPN. MD anticipates rapid decline without further treatment. Pt remains resistant to hospice. Discharge needs remain unclear. Per prior CM notes, pt hoping to discharge home with a friend. [facility] palliative care and [facility] previously arranged. CM will continue to follow. Current Discharge Plan: Home with friend support, K[facility], [facility] and [facility] Date Signed: 11/14/2017 05:46 PM Electronically Signed By:Zohreh Strauss RN
[2017-11-14] MEDS: TPN 1 EA BAG IV SCH (21:55)
[2017-11-14] MEDS: PROGESTERONE TP SCH (21:55)
[2017-11-15] MEDS: INSULIN LISPRO 100 UNIT/ML SC SCH ×3 (01:18→13:22)
[2017-11-15] MEDS: THYROID PORK 32.5 MG PO SCH (09:08)
[2017-11-15] MEDS: ALTEPLASE 2 MG VIAL IVP PRN (10:04)
[2017-11-15 11:32] LABS: PLATELET COUNT 286 10^3/uL (150-400)
[2017-11-15 11:33] LABS: INR 1.12 (0.83-1.16); PROTIME(PATIENT) 14.6 SEC (12.0-15.0)
--- NOTE | 2017-11-15 11:45 | HOSPPROG ---
Hospitalist Progress Note Assessment/Plan: 66-year-old with history of metastatic cervical cancer who has refuse conventional treatments in the past. She currently is complicated by peritoneal carcinomatosis with refractory loculated ascites for which she has had paracentesis metastatic cervical cancer metastasized to the peritoneum, with recurrent loculated ascites status post paracentesis, multiple. * Continue to monitor symptoms she is status post paracentesis on 11/08 and * Plans on following up in [place] for Oncology * Hospice appropriate but patient is not ready and plans on palliative care with [facility] at home * Main issue is nutrition due to her recurrent small-bowel obstructions due to the malignancy. She is currently on TPN and will go home with TPN. small bowel obstruction, acute on chronic due to malignancy with severe protein calorie malnutrition * TPN * Patient with large amount of bowel movements last night * Clear liquids and sips as tolerated, if this exacerbate symptoms she will be back to NPO status * I anticipate discharge home Wednesday with home care. * [facility] * Brief eating syndrome, resolving hydronephrosis due to obstruction, continue to monitor renal function Prognosis poor, already enrolled with home palliative care with [facility] appropriate but she does not appear ready. Reconsult palliative care to dive deeper regarding her poor prognosis and her level of understanding. anticipate hydro will progress leading to eventual renal failure and Current plan of DC home with indefinite TPN will likely fail. she wiashes to use tpn as bridge to next alternative therapy Patient is hoping to go home Wednesday morning on TPN Subjective: chart reviewed Objective: Vital Signs Temp Pulse Resp BP Pulse Ox 36.4 C 88 16 115/77 96 11/15/17 08:35 11/15/17 08:35 11/15/17 08:35 11/15/17 08:35 11/15/17 08:35 Laboratory Results 11/15/17 11:15 11/14/17 11/15/17 11/16/17 05:59 05:59 05:59 Intake Total 300 1830 Output Total 200 1250 200 Balance 100 580 -200 PT 14.6 SEC (12.0-15.0) 11/15/17 11:15 INR 1.12 (0.83-1.16) 11/15/17 11:15 - Physical Exam Constitutional: no apparent distress, appears nourished Eyes: PERRL, anicteric sclera Ears, Nose, Mouth, Throat: moist mucous membranes, hearing normal Cardiovascular: regular rate and rhythym, no murmur, rub, or gallop Respiratory: no respiratory distress, no rales or rhonchi Gastrointestinal: ascites, distension, No guarding, No rebound Genitourinary: no bladder fullness, No maki in urethra Skin: warm, normal color Musculoskeletal: full muscle strength Neurologic: AAOx3 ICD10 Worksheet Patient Problems: Problems Problem Status Onset Hyponatremia Acute Obstruction of right ureter Acute SBO (small bowel obstruction) Acute Abdominal pain Acute Ascites Acute Ascites, malignant Acute Cervical cancer Acute Intractable generalized abdominal pain Acute Nausea and vomiting Acute Partial small bowel obstruction Acute
--- NOTE | 2017-11-15 15:55 | ASMTCMCOM ---
CM Note CM Note Notes: Chart reviewed. Patient is current with [facility] and is not ready to commit to hospice care. Plan to dc Wednesday to home with [facility] for TPN, [facility] and [facility]. May be going to a friend's home as there are fewer stairs to navigate. I spoke with patient and there are two possible addresses that she may choose from. I will follow up with her tomorrow. Spoke with palliative care Melvin Portillo who will reach out to her palliative team to see if they may offer some insight to patients current plan of care.CM to follow. Plan: as outlined above. Date Signed: 11/15/2017 01:39 PM Electronically Signed By:Tiny Quesada RN
[2017-11-15] MEDS: TPN 1 EA BAG IV SCH (21:36)
[2017-11-15] MEDS: PROGESTERONE TP SCH (21:40)
[2017-11-16] MEDS: THYROID PORK 32.5 MG PO SCH (09:14)
--- NOTE | 2017-11-16 11:39 | HOSPPROG ---
Hospitalist Progress Note Assessment/Plan: 66-year-old with history of metastatic cervical cancer who has refuse conventional treatments in the past. She currently is complicated by peritoneal carcinomatosis with refractory loculated ascites for which she has had paracentesis metastatic cervical cancer metastasized to the peritoneum, with recurrent loculated ascites status post paracentesis, multiple. * Continue to monitor symptoms she is status post paracentesis on 11/08 and * repeat today per her request * minimal role for janice drain given septations- has had one in past * Hospice appropriate but patient is not ready and plans on palliative care with [facility] at home * Main issue is nutrition due to her recurrent small-bowel obstructions due to the malignancy. She is currently on TPN and will go home with TPN. * now cycling tpn small bowel obstruction, acute on chronic due to malignancy with severe protein calorie malnutrition * TPN * Patient with large amount of bowel movements last night * this occurred after drainage of posterior pocket of fluid suggesting that it was contributing to obstruction * Clear liquids and sips as tolerated, * she is going slowly, doing OK * I anticipate discharge home Wednesday with home care. * [facility] * Brief eating syndrome, resolving hydronephrosis due to obstruction, continue to monitor renal function Prognosis poor, already enrolled with home palliative care with [facility] appropriate but she does not appear ready. Reconsult palliative care to dive deeper regarding her poor prognosis and her level of understanding. anticipate hydro will progress leading to eventual renal failure and Current plan of DC home with indefinite TPN may fail she wishes to use tpn as bridge to next alternative therapy Patient is hoping to go home Wednesday morning on TPN Subjective: now cycling tpn Objective: Vital Signs Temp Pulse Resp BP Pulse Ox 36.9 C 104 H 16 128/83 H 95 11/16/17 07:23 11/16/17 07:23 11/16/17 07:23 11/16/17 07:23 11/16/17 07:23 Laboratory Results 11/15/17 11:15 11/15/17 11:15 11/15/17 11/16/17 11/17/17 05:59 05:59 05:59 Intake Total 1830 0 Output Total 1250 1050 Balance 580 -1050 PT 14.6 SEC (12.0-15.0) 11/15/17 11:15 INR 1.12 (0.83-1.16) 11/15/17 11:15 - Physical Exam Constitutional: no apparent distress, appears nourished Eyes: PERRL, anicteric sclera Ears, Nose, Mouth, Throat: moist mucous membranes, hearing normal Cardiovascular: regular rate and rhythym, no murmur, rub, or gallop Respiratory: no respiratory distress, no rales or rhonchi Gastrointestinal: normoactive bowel sounds, ascites Genitourinary: no bladder fullness, No maki in urethra Skin: warm, normal color Musculoskeletal: full muscle strength Neurologic: AAOx3 ICD10 Worksheet Patient Problems: Problems Problem Status Onset Hyponatremia Acute Obstruction of right ureter Acute SBO (small bowel obstruction) Acute Abdominal pain Acute Ascites Acute Ascites, malignant Acute Cervical cancer Acute Intractable generalized abdominal pain Acute Nausea and vomiting Acute Partial small bowel obstruction Acute
[2017-11-16] MEDS ORDERED: LIDOCAINE 1% 300 MG/30 ML SDV ONE (12:16)
--- NOTE | 2017-11-16 12:16 | ASMTCMCOM ---
CM Note CM Note Notes: Discussed patient with hospital medicine. She will likely dc tomorrow with [facility] [place] and [facility]. The patient is going to temporary housing and is requesting a hospital bed. I provided them with Medical Supply company lists and the knows to write a prescription to get insurance authorization. [place] [facility] [place] to [facility] and [facility] to inform them of address and phone number. The contact numbers will also be listed on DC information for the patient. CM to follow. Plan: to dc home with [facility] for TPN and [facility]. Date Signed: 11/16/2017 12:15 PM Electronically Signed By:Tiny Quesada RN
[2017-11-16] MEDS: PROGESTERONE TP SCH (21:30)
[2017-11-16] MEDS: TPN 1 EA BAG IV SCH (21:30)
[2017-11-17 08:40] VITALS: BP 122/80
[2017-11-17] MEDS: THYROID PORK 32.5 MG PO SCH (09:25)
--- NOTE | 2017-11-17 10:09 | PDIAF ---
- Diagnosis Diagnosis: metastatic cervical cancer Code Status: Full Code - Medication Management Discharge Medications: Medications to Continue on Transfer Thyroid,Pork [Westhroid] 32.5 mg PO DAILY 02/23/16 [Last Taken 11/03/17] Cmp Progesteron Crm 300mg/Ml 1 leighton TP HS 08/09/17 [Last Taken 11/02/17] Herbals/Supplements -Info Only 1 ea PO DAILY 09/23/17 [Last Taken 2 Weeks Ago ~ 10/20/17] Discharge Medications: Refer to the Discharge Home Medication list for PRN reason. - Orders Services needed: Home Care, Registered Nurse Home Care Face to Face: I certify that this patient was under my care and that I had the required [id number] encounter meeting the encounter requirements on the discharge day. My findings support the fact that the patient is homebound as defined in Home Care Face to Face Continued: CMS Chapter 7 Medicare Benefits Manual 30.1.1 , The condition of the patient is such that there exists a normal inability to leave home and consequently, leaving home would require a considerable and taxing effort. Additional Instructions: [facility] - [phone] [facility] [phone] Nu [phone] - Follow Up Care Current Providers and Referrals: NONE *PRIMARY CARE P,. [Primary Care Provider] -
--- NOTE | 2017-11-17 10:28 | PDIAF ---
- Diagnosis Diagnosis: metastatic cervical cancer Code Status: Full Code - Medication Management Discharge Medications: Medications to Continue on Transfer Thyroid,Pork [Westhroid] 32.5 mg PO DAILY 02/23/16 [Last Taken 11/03/17] Cmp Progesteron Crm 300mg/Ml 1 leighton TP HS 08/09/17 [Last Taken 11/02/17] Herbals/Supplements -Info Only 1 ea PO DAILY 09/23/17 [Last Taken 2 Weeks Ago ~ 10/20/17] Discharge Medications: Refer to the Discharge Home Medication list for PRN reason. - Orders Services needed: Home Care, Registered Nurse, Occupational Therapy Home Care Face to Face: I certify that this patient was under my care and that I had the required [id number] encounter meeting the encounter requirements on the discharge day. My findings support the fact that the patient is homebound as defined in Home Care Face to Face Continued: CMS Chapter 7 Medicare Benefits Manual 30.1.1 , The condition of the patient is such that there exists a normal inability to leave home and consequently, leaving home would require a considerable and taxing effort. Additional Instructions: [facility] - [phone] [facility] [phone] Nu [phone] - Follow Up Care Current Providers and Referrals: NONE *PRIMARY CARE P,. [Primary Care Provider] -
--- NOTE | 2017-11-17 10:31 | HOSPPROG ---
Hospitalist Progress Note Assessment/Plan: 66-year-old with history of metastatic cervical cancer who has refuse conventional treatments in the past. She currently is complicated by peritoneal carcinomatosis with refractory loculated ascites for which she has had paracentesis metastatic cervical cancer metastasized to the peritoneum, with recurrent loculated ascites status post paracentesis, multiple. * Continue to monitor symptoms she is status post paracentesis on 11/08 and * repeat today per her request * minimal role for janice drain given septations- has had one in past * Hospice appropriate but patient is not ready and plans [facility] * Main issue is nutrition due to her recurrent small-bowel obstructions due to the malignancy. She is currently on TPN and will go home with TPN. * now cycling tpn small bowel obstruction, acute on chronic due to malignancy with severe protein calorie malnutrition * TPN * Patient with large amount of bowel movements last night * this occurred after drainage of posterior pocket of fluid suggesting that it was contributing to obstruction * Clear liquids and sips as tolerated, * she is going slowly, doing OK * I anticipate discharge home Wednesday with home care. * She states she [facility] as well, not interested in hospice * Brief eating syndrome, resolving hydronephrosis due to obstruction, continue to monitor renal function Prognosis poor, already enrolled with home palliative care with [facility] H[facility] appropriate but she does not appear ready. Reconsult palliative care to dive deeper regarding her poor prognosis and her level of understanding. anticipate hydro will progress leading to eventual renal failure and home today > 30 minutes on dc Subjective: anxious for dc Objective: Vital Signs Temp Pulse Resp BP Pulse Ox 36.7 C 99 16 122/80 H 96 11/17/17 08:00 11/17/17 08:00 11/17/17 08:00 11/17/17 08:00 11/17/17 08:00 Laboratory Results 11/15/17 11:15 11/17/17 05:30 11/16/17 11/17/17 11/18/17 05:59 05:59 05:59 Intake Total 0 677 Output Total 1050 950 Balance -1050 -273 PT 14.6 SEC (12.0-15.0) 11/15/17 11:15 INR 1.12 (0.83-1.16) 11/15/17 11:15 - Physical Exam Constitutional: no apparent distress, appears nourished Eyes: PERRL, anicteric sclera Ears, Nose, Mouth, Throat: moist mucous membranes, hearing normal Cardiovascular: regular rate and rhythym, no murmur, rub, or gallop Respiratory: no respiratory distress, no rales or rhonchi Gastrointestinal: normoactive bowel sounds, soft, non-tender abdomen Genitourinary: no bladder fullness, No maki in urethra Skin: warm, normal color Musculoskeletal: full muscle strength, no muscle tenderness Neurologic: AAOx3, sensation intact bilaterally Psychiatric: interacting appropriately, not anxious ICD10 Worksheet Patient Problems: Problems Problem Status Onset Hyponatremia Acute Obstruction of right ureter Acute SBO (small bowel obstruction) Acute Abdominal pain Acute Ascites Acute Ascites, malignant Acute Cervical cancer Acute Intractable generalized abdominal pain Acute Nausea and vomiting Acute Partial small bowel obstruction Acute
--- NOTE | 2017-11-17 11:04 | ASMTCMCOM ---
CM Note CM Note Notes: Pt is ready for DC today. [facility], [facility] and [facility] all alerted, Final orders faxed to all including TPN formula. Went over DC plan with pt and Sterling knight. Pt's PCP, Dr Ventura will help pt order a hospital bed. Pt has obtained DME from local loan closets. No other needs identified. Date Signed: 11/17/2017 11:03 AM Electronically Signed By:Judy Krueger LCSW
--- NOTE | 2017-11-17 13:16 | PDIAF ---
- Diagnosis Diagnosis: metastatic cervical cancer Code Status: Full Code - Medication Management Discharge Medications: Medications to Continue on Transfer Thyroid,Pork [Westhroid] 32.5 mg PO DAILY 02/23/16 [Last Taken 11/03/17] Cmp Progesteron Crm 300mg/Ml 1 leighton TP HS 08/09/17 [Last Taken 11/02/17] Herbals/Supplements -Info Only 1 ea PO DAILY 09/23/17 [Last Taken 2 Weeks Ago ~ 10/20/17] Pharmacy To DoseTPN 1 ea MISC AD #0 bag 11/17/17 [Last Taken Unknown] Discharge Medications: Refer to the Discharge Home Medication list for PRN reason. - Orders Services needed: Home Care, Registered Nurse, Occupational Therapy Home Care Face to Face: I certify that this patient was under my care and that I had the required [id number] encounter meeting the encounter requirements on the discharge day. My findings support the fact that the patient is homebound as defined in Home Care Face to Face Continued: CMS Chapter 7 Medicare Benefits Manual 30.1.1 , The condition of the patient is such that there exists a normal inability to leave home and consequently, leaving home would require a considerable and taxing effort. Tube feeding: TPN Additional Instructions: [facility] - [phone] [facility] [phone] [facility] [phone] - Follow Up Care Current Providers and Referrals: NONE *PRIMARY CARE P,. [Primary Care Provider] -
--- NOTE | 2017-11-17 14:32 | ASDISCHSUM ---
Discharge Information Plan Status:Home with Home Health Medically Cleared to Leave: Discharge Date:11/17/2017 02:00 PM CM D/C Disposition:Home Health Service ADT D/C Disposition:HHSNOTBCH Projected Discharge Date:11/16/2017 11:00 AM Transportation at D/C: Discharge Delay Reason: Follow-Up Date:11/16/2017 11:00 AM Discharge Slot: Final Diagnosis: Placement Information Referral Type:Palliative Care Referral ID:[id number] Provider Name:[facility] Address 1:[address] Phone Number: Address 2: Fax Number: City:[place] Selection Factors: State:[place] Referral Type:Home Infusion Referral ID:[id number] Provider Name:[facility] Address 1:[address] Address 2: City:[place] Selection Factors: State:[place] Referral Type:*Home Health Care Services Referral ID:[id number] Provider Name:[facility] Address 1:[address], [address] Address 2: City:[place] Selection Factors: State:[place] Patient Contact Information Contact Name:PARKER Relationship:Life Partner Address:[address] [place] [address] [address] Work Phone: City:[facility] Phone: State/Zip Code:[place] [address] Email: Financial Information Financial Class:Medicare Advantage Plans Primary Plan Desc:[employer] [facility] [employer] Primary Plan Number:[id number] Secondary Plan Desc: Secondary Plan Number: Assessment Information [facility] CM Progress Note CM Note CM Note Notes: Pt with hx of cervical ca admitted for ABO. Pt has admitted for same in past. She will be treated conservatively. Pt is current with [facility] for palliative care. Will fax them clinicals. CM to follow. Date Signed: 11/04/2017 02:40 PM Electronically Signed By:Judy Krueger LCSW [facility] CM Progress Note CM Note CM Note Notes: Chart reviewed. Patient is suffering from dehydration and malnutrition Would like to pursue at home hydration. Referral to [place] [facility], awaiting pricing, [facility] is okay to open this Wednesday. If agreeable to pricing, PICC can be ordered. CM to follow. Plan: home with [facility] and HHC Date Signed: 11/05/2017 04:03 PM Electronically Signed By:Tiny Quesada RN [facility] CM Progress Note CM Note CM Note Notes: Chart reviewed. Patient is now agreeable to try TPN as she is severely malnourished. She shares with me that she is also dehydrated and is inquiring about hydration IV therapy as well. [facility] have a turn around time for securing TPN from their pharmacy. CM to follow. Plan: Home with Home infusion and HHC via [facility]. Date Signed: 11/07/2017 01:32 PM Electronically Signed By:Tiny Quesada RN [facility] CM Progress Note CM Note CM Note Notes: Chart reviewed. Per Nu, patient should be covered for home TPN infusion as she is not a surgical candidate and she is severely malnourished. patient reports she feels unwell on TPN. CM to follow. Plan: Home with [place] and [facility], [facility] also following. Date Signed: 11/08/2017 02:06 PM Electronically Signed By:Tiny Quesada RN [facility] CM Progress Note CM Note CM Note Notes: Chart reviewed. Patient underwent paracentesis for 400 ml. She is experiencing refeeding syndrome, Once her TPN is at goal rate she may be medically c;leared for discharge to home with [facility] and [facility] in additional to [facility]. Plan: As outlined above. Date Signed: 11/09/2017 03:48 PM Electronically Signed By:Tiny Quesada RN [facility] CM Progress Note CM Note CM Note Notes: A medical detail representative from [facility] met with Pt. She inquired into when D/C will be; this is still to be determined. Nu will be notified when this is decided. Date Signed: 11/11/2017 01:54 PM Electronically Signed By:Shruthi Pinedo [facility] Progress Note CM Note CM Note Notes: CM met with Pt. Pt is anxious to leave hospital and asked for information re D/C date. She is looking into staying at a friend's home so that she doesn't have to navigate stairs. She will let CM know if this occurs so that Nu can be notified of the address change. D/C Plan: Home with Nu [facility] and [facility]. Date Signed: 11/12/2017 09:26 AM Electronically Signed By:Shruthi Pinedo [facility] Progress Note CM Note CM Note Notes: Pt received news that she will be having a procedure on Wednesday that she hopes will bring her relief; Dr Gooden will do a paracentesis under anesthesia on Wednesday to access deep pocket transvaginally. Pt indicated that her friend, Faina, is devloping a plan gor where she will live once she is D/C ed from hospital. D/C Plan: D/C location remains unclear, but will be followed by [facility] and [facility]. Date Signed: 11/12/2017 02:14 PM Electronically Signed By:Shruthi Pinedo [facility] CM Progress Note CM Note CM Note Notes: Reviewed chart regarding discharge plan of care, pt's progress. Call received from Tosin Gil with [facility]. Per Tosin, second Palliative Care consult ordered to further discuss pt's poor prognosis and remote computer terminal operator plan. Melvin Jama to meet with pt on Wednesday11/15/17. Per MD notes, pt wishing to discharge home on Wednesday11/17/17 with TPN. MD anticipates rapid decline without further treatment. Pt remains resistant to hospice. Discharge needs remain unclear. Per prior CM notes, pt hoping to discharge home with a friend. [facility] and [facility] previously arranged. CM will continue to follow. Current Discharge Plan: Home with friend support, [facility], [facility] and [facility] Date Signed: 11/14/2017 05:46 PM Electronically Signed By:Zohreh Strauss RN [facility] CM Progress Note CM Note CM Note Notes: Chart reviewed. Patient is current with [facility] and is not ready to commit to hospice care. Plan to dc Wednesday to home with [facility] for TPN, [facility] and [facility]. May be going to a friend's home as there are fewer stairs to navigate. I spoke with patient and there are two possible addresses that she may choose from. I will follow up with her tomorrow. Spoke with palliative care Melvin Portillo who will reach out to her palliative team to see if they may offer some insight to patients current plan of care.CM to follow. Plan: as outlined above. Date Signed: 11/15/2017 01:39 PM Electronically Signed By:Tiny Quesada RN [facility] CM Progress Note CM Note CM Note Notes: Discussed patient with hospital medicine. She will likely dc tomorrow with [facility], [facility] [place] and [facility]. The patient is going to temporary housing and is requesting a hospital bed. I provided them with [facility] [employer] lists and the knows to write a prescription to get insurance authorization. Address updated to [facility]. Call to [facility] and [facility] to inform them of address and phone number. The contact numbers will also be listed on DC information for the patient. CM to follow. Plan: to dc home with Nu [facility] for TPN and [facility]. Date Signed: 11/16/2017 12:15 PM Electronically Signed By:Tiny Quesada RN [facility] CM Progress Note CM Note CM Note Notes: Pt is ready for DC today. [facility], [facility], Final orders faxed to all including TPN formula. Went over DC plan with pt and [facility] knight. Pt's PCP, Dr Ventura will help pt order a hospital bed. Pt has obtained DME from local loan closets. No other needs identified. Date Signed: 11/17/2017 11:03 AM Electronically Signed By:Judy Krueger LCSW Intervention Information
--- NOTE | 2017-11-17 17:24 | GDS ---
[f rep st] DISCHARGE SUMMARY DISCHARGE DIAGNOSES: 1. Protein calorie malnutrition. 2. Cervical cancer, status post radical debulking in 2016. Notably, she has refused traditional laura motherapy. 3. Recurrent small-bowel obstruction. 4. Chronic compression fracture. 5. Chronic pleural effusions. CONSULTATIONS: Interventional Radiology, Surgery, and Oncology. HOSPITAL COURSE: The patient presented on the with inability to tolerate solids. She has been admitted recurrently for these problems. She received multiple thoracenteses, including 1 from a posterior approach done by Dr. Gooden on the d. This resulted in on multiple bowel movements and a significant amount of symptomatic improvement for her. She was also started on TPN while here. She was offered chemotherapy, which she declined. Currently, the patient is discharged home after multiple paracenteses with home TPN. With a plan, s he has an alternative provider with whom she would like to follow up with. DISCHARGE MEDICATIONS: TPN only. /[id number]/MODL
== END 2017-11-17 14:00 | disposition home health service (06) | DRG 374 ==
LOC: F1N 21:42
PROVIDERS: ADMIT Student in an Organized Health Care Education/Training Program; ATTEND Student in an Organized Health Care Education/Training Program
PROC: 02HV33Z Insertion of Infusion Device into Superior Vena Cava, Percutaneous Approach (ICD-10-PCS; principal; 2017-11-06)
PROC: 0W9G3ZZ Drainage of Peritoneal Cavity, Percutaneous Approach (ICD-10-PCS; 2017-11-08)
PROC: 0W9J3ZZ Drainage of Pelvic Cavity, Percutaneous Approach (ICD-10-PCS; 2017-11-12)
DX: C78.6 Secondary malignant neoplasm of retroperitoneum and peritoneum (principal); E43 Unspecified severe protein-calorie malnutrition; K56.699 Other intestinal obstruction unspecified as to partial versus complete obstruction; J90 Pleural effusion, not elsewhere classified; C53.9 Malignant neoplasm of cervix uteri, unspecified; E86.0 Dehydration
CPT/HCPCS: 84134-90; 97110-GP; 97116-GP; 97161-GP; 97165-GO; 97530-GO; 97530-GP; 97535-GO; C1751; G8978-GP-CK; G8979-GP-CI; G8987-GO-CK; G8988-GO-CJ; J1650; J1815; J2997; Q9967

== ENCOUNTER → 2017-11-23 | Outpatient (CLI) | payer OTHER | LOC: FIMAGING 11:32 | PROVIDERS: ATTEND Family Medicine | PROC: 0W9F30Z Drainage of Abdominal Wall with Drainage Device, Percutaneous Approach (ICD-10-PCS; principal; 2017-11-23) | DX: R18.8 Other ascites (principal); C53.9 Malignant neoplasm of cervix uteri, unspecified; M54.9 Dorsalgia, unspecified ==

== ENCOUNTER 2017-12-01 14:05 | Observation (INO) | payer OTHER ==
[2017-12-01] MEDS ORDERED: LIDOCAINE 1% 300 MG/30 ML SDV ONE ×2 (14:16→15:22)
[2017-12-01] MEDS ORDERED: D10W 1,000 ML IV PRN (18:56)
[2017-12-01] MEDS ORDERED: PROMETHAZINE HCL 25 MG/ML INJ IVP PRN (18:58)
[2017-12-01] MEDS ORDERED: ACETAMINOPHEN 650 MG SUPP PR PRN (18:58)
[2017-12-01] MEDS ORDERED: ONDANSETRON 4 MG/2 ML VIAL IVP PRN (18:58)
[2017-12-01] MEDS ORDERED: ACETAMINOPHEN 325 MG TAB PO PRN (18:58)
[2017-12-01] MEDS ORDERED: NS 1,000 ML IV SCH (19:00)
[2017-12-01] MEDS ORDERED: PROGESTERONE TP SCH (21:00)
--- NOTE | 2017-12-01 21:48 | GHP ---
[f rep st] HISTORY AND PHYSICAL DATE OF ADMISSION: 12/01/2017 CHIEF COMPLAINT: Dizziness. HISTORY: The patient is a 67-year-old female with a history of metastatic cervical cancer with perit hudson carcinomatosis and malignant ascites that is refractory and loculated, requiring weekly paracen tesis. Due to peritoneal carcinomatosis, she has a small bowel obstruction. Surgery saw her last ad mission. No further surgical options. She is now being maintained at home n.p.o. on TPN. She has a history of pursuing alternative therapies for her cancer and never got standard chemotherapy. She was just discharged from the hospital on November 17 and did have great relief after a transgluteal approach by Dr. Gooden of a pocket of ascites and subsequently her abdominal complaints improved greatl y and there was some thought that this small bowel obstruction may have improved, although she remain s n.p.o. at this time. She is now being readmitted to the hospital by Dr. Gooden after performing a recurrent round of aggressi ve paracentesis. Today, Dr. Gooden drained all 4 quadrants as well as using the transgluteal approach f or the deep pocket. Immediately after the procedure, she looked clinically very poor and Dr. Gooden had concerns that she looked looks so poorly, she may be imminently dying. She is admitted to observati on. I am seeing the patient on arrival to the floor and she states that all of her symptoms from pos tprocedure have resolved. She describes immediately after the procedure, she sat up and got severely dizzy, like she has never before. Those symptoms have now completely resolved. She really did feel she has been doing well at home with minimal abdominal pain until last Wednesday whe n she developed some abdominal cramping. She does pass gas and have bowel movements, although this d ecreased as of yesterday. She was having increasing pain and pressure. Immediately after the proced ure, she had complete resolution of abdominal pain. Home TPN is going well. She denies any nausea o r vomiting. She does have occasional severe GERD when her obstruction gets worse, but declines any k ind of antacid therapy. She is tolerating small amounts of water and broth at home. PAST MEDICAL HISTORY: 1. Metastatic cervical cancer initially diagnosed in 2007 and diagnosed as invasive in 2008. She in itially had normal Pap smear and then went on to cone biopsy. She declined standard chemotherapy. W as being treated with herbal regimen as well as traveling to [facility], for treatments. In , she re-presented with massive abdominal distention and was found to have malignant ascites and pel brigitte masses. At that point, she underwent a radical debulking. After that surgery, she went back to [facility] to receive some low-dose chemotherapy. She has never received chemo from [facility], although she does follow loosely with that group. She has also traveled to [place] to see a chiropractor for IV glutathione and IV vitamin C as well as a ketogenic diet in treatment of her can cer. 2. Peritoneal carcinomatosis with refractory loculated malignant ascites. 3. Small chronic small bowel obstruction. On TPN. 4. Right hydronephrosis. Presumably obstructive due to malignancy. MEDICATIONS: Please see computer record for full detailed list. ALLERGIES: Sulfa, cisplatin SOCIAL HISTORY: No smoking. No alcohol. She lives with, her long-term partner, although they are n ot . She does desire him to be power of employment attorney. However, she has not done official paperwo rk. 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 REVIEW OF SYSTEMS: Complete review of systems obtained, negative, regarding constitutional, HEENT, G I, pulmonary, cardiovascular, , hematology, skin, vascular, endocrine, except for positives and neg ative as in HPI. FAMILY HISTORY: Reviewed, noncontributory to presenting complaint. PHYSICAL EXAMINATION: GENERAL: Well-developed, well-nourished female in no acute distress. VITAL S IGNS: Temperature is afebrile, pulse 88, blood pressure 132/77, 96% on room air. HEENT: Normal con junctivae. Pupils round and react to light. ENT: Normal ears and nose. Hearing intact. Normal solis th. Oropharynx moist. NECK: Trachea midline. No thyromegaly. Chest: Normal respiratory effort. LUNGS: Clear to auscultation bilaterally. CARDIOVASCULAR: Regular rate and rhythm. No murmur. N o lower extremity edema. ABDOMEN: Soft, distended, nontender. Positive ascites. No hepatosplenome donna. SKIN: Warm, dry, intact without rash. MUSCULOSKELETAL: No cyanosis or clubbing. Strength 5 /5 upper and lower extremities. NEURO: Cranial nerves intact. Normal sensation to light touch. PS YCHIATRIC: Alert and oriented x3. Normal affect. Normal judgment. Normal memory. LABORATORIES: CBC, comprehensive metabolic, and lactic acid level were ordered by me but still pendi ng. 3-way of the abdomen with chest x-ray also ordered but pending. RECORDS REVIEW: I reviewed medical records including recent hospitalization and discharge plan per Elisa Terry. ASSESSMENT/PLAN: 1. Malignant loculated ascites status post paracentesis in all 4 quadrants, including a transgluteal approach. She is paracentesis dependent and is receiving them weekly. She is otherwise on no other chemotherapy to counteract this malignant ascites. 2. Small bowel obstruction secondary to peritoneal carcinomatosis and malignant ascites. She mainta ins herself on clear liquids at home with total parenteral nutrition. Given her clinical worsening t desi, will recheck a chest x-ray. 3. Transient dizziness and lightheadedness. Post procedure, she has rapidly recovered. I suspect s he may be a little dehydrated. We will hydrate her with intravenous fluids and check basic labs incl uding CBC and chem 7. 4. Metastatic cervical cancer. She has refused conventional therapy and never received indicated ch emotherapy and pursued alternative measures. Oncology has followed loosely in the past, however, garcia s not feel they have much of a role, given her lack of desire for any of their offered treatments. CODE STATUS: Full. This was confirmed with the patient. Those continue to be her wishes. [facility] is following her at home. We will also ask the palliative care team here to follow u p. ADMISSION STATUS: Will admit to observation. If she continues to look clinically well, she may be a ble to discharge home tomorrow. DVT PROPHYLAXIS: She is high risk. Will place her on subcu Lovenox. /[id number]/MODL
[2017-12-01 22:02] LABS: PLATELET COUNT 505 10^3/uL (150-400)
[2017-12-01 22:05] LABS: INR 1.25 (0.83-1.16); PROTIME(PATIENT) 15.9 SEC (12.0-15.0)
[2017-12-02 05:20] LABS: PLATELET COUNT 428 10^3/uL (150-400)
[2017-12-02 05:28] LABS: INR 1.22 (0.83-1.16); PROTIME(PATIENT) 15.6 SEC (12.0-15.0)
[2017-12-02] MEDS ORDERED: THYROID PORK 32.5 MG PO SCH (09:00)
[2017-12-02] MEDS ORDERED: ENOXAPARIN 40 MG/0.4 ML SYR SC SCH (09:00)
[2017-12-02 12:54] VITALS: BP 132/90
--- NOTE | 2017-12-02 14:28 | PDDCSUM ---
Discharge Summary Discharge Summary: DISCHARGE DIAGNOSES: * near syncope following procedure, resolved * ongoing malignant ascites, multiloculated, status post repeat paracentesis of multiple collections * ongoing anemia of malignancy requiring transfusion red blood cells during this admission * high ongoing bowel obstruction from carcinomatosis * metastatic cancer of the cervix CONSULTANTS: Dr. Vivian Cosme of [facility] PROCEDURES: Ultrasound-guided paracentesis for multiloculated malignant ascites Transfusion 1 unit packed red blood cells HOSPITAL COURSE SUMMARY: This patient who has known cervical cancer with carcinomatosis, malignant ascites, and bowel obstruction, has been surviving on TPN at home lately. She has required recurrent paracenteses for increasing pain and decreasing bowel function due to her ascites. She came in at this time for an elective paracentesis and this was done from for loculated cavities with fluid successfully removed from each. At the end of the procedure the patient suddenly had a near syncopal spell. This has resolved entirely. There is no evidence of any cardiac event. Notably the patient was probably somewhat dehydrated at the time of the event. Also she had fairly rapid onset of return of colonic function with evacuation of her bowels during all this, and there may been some autonomic fluctuation related to that that contributed to the reaction. While her volume of paracentesis was not very large compared to most patient's, it could be that her overall nutritional status hydration status and issues related to carcinomatosis may make her more susceptible to such a reaction with paracentesis. She does have ongoing severe anemia of malignancy, and this is normocytic. Her hemoglobin has drifted down significantly since earlier this year. At this point she had a hemoglobin of 6.5 but after 1 unit of packed red blood cells is 9.2. Her recent baseline hemoglobin is approximately 8 and I believe probably her actual hemoglobin coming into CS was closer to 7.5 with some air of sampling from the machine reading lower. Clearly however she will need careful monitoring of her blood counts if she is going to continue with aggressive measures such as transfusion. It is notable however that she is continuing to decline any chemotherapy and is working with some other holistic practitioners for which she sees as possible curative therapy for her tumor. At this point she is eating drinking and up walking about without orthostatic symptoms or vital sign changes. She is felt stable for discharge to home PENDING TEST RESULTS: None MEDICATION CHANGES: None FOLLOW-UP PLAN: With Dr. Joselo Rdz in 1-2 weeks Greater than 35 minutes bedside and care coordination time today
--- NOTE | 2017-12-02 15:14 | PDIAF ---
- Diagnosis Diagnosis: cervical cancer, malignant ascites, bowel obstruction Code Status: Full Code - Medication Management Discharge Medications: Medications to Continue on Transfer Thyroid,Pork [Westhroid] 32.5 mg PO DAILY 02/23/16 [Last Taken 11/24/17] Cmp Progesteron Crm 300mg/Ml 1 leighton TP HS 08/09/17 [Last Taken 11/30/17] Herbals/Supplements -Info Only 1 ea PO DAILY 09/23/17 [Last Taken 2 Weeks Ago ~ 10/20/17] Pharmacy To DoseTPN 1 ea MISC AD bag 12/02/17 [Last Taken Unknown] Additional Medication Instructions: Continue her TPN as previously prescribed Discharge Medications: Refer to the Discharge Home Medication list for PRN reason. - Orders Services needed: Home Care, Registered Nurse, Certified [employer] Home Care Face to Face: I certify that this patient was under my care and that I had the required [id number] encounter meeting the encounter requirements on the discharge day. My findings support the fact that the patient is homebound as defined in Home Care Face to Face Continued: CMS Chapter 7 Medicare Benefits Manual 30.1.1 , The condition of the patient is such that there exists a normal inability to leave home and consequently, leaving home would require a considerable and taxing effort. Diet Recommendation: no restrictions on diet Diet Texture: Thin Liquids Additional Instructions: Keep your scheduled followups with Dr. Rdz Eat very slowly if you do - Follow Up Care Current Providers and Referrals: Patient,NotPresent [Primary Care Provider] -
--- NOTE | 2017-12-02 15:27 | ASMTCMCOM ---
CM Note CM Note Notes: Patient chart reviewed. Underwent therapeutic paracentesis yesterday. She is medically cleared for dc this afternoon. [facility] notified as well as [facility]. CM available if other needs arise. Plan: Home with resumption of previous services. Date Signed: 12/02/2017 03:26 PM Electronically Signed By:Tiny Quesada RN
== END 2017-12-02 16:52 | disposition home health service (06) ==
LOC: FIMAGING 14:05 → F1N 17:17
PROVIDERS: ADMIT Internal Medicine; ATTEND Internal Medicine
PROC: 0W9F3ZZ Drainage of Abdominal Wall, Percutaneous Approach (ICD-10-PCS; principal; 2017-12-01)
PROC: 30233N1 Transfusion of Nonautologous Red Blood Cells into Peripheral Vein, Percutaneous Approach (ICD-10-PCS; 2017-12-01)
DX: R55 Syncope and collapse (principal); R18.0 Malignant ascites; C78.6 Secondary malignant neoplasm of retroperitoneum and peritoneum; C53.9 Malignant neoplasm of cervix uteri, unspecified; K56.699 Other intestinal obstruction unspecified as to partial versus complete obstruction; R14.0 Abdominal distension (gaseous); D63.0 Anemia in neoplastic disease; M54.9 Dorsalgia, unspecified; N13.39 Other hydronephrosis; E86.0 Dehydration; Z88.2 Allergy status to sulfonamides; Z51.5 Encounter for palliative care
CPT/HCPCS: 49083; 74022; 97116; 97161; 97165; G0378; G8978; G8979; G8987; G8988; G8989; P9016

== ENCOUNTER → 2017-12-07 | Outpatient (CLI) | payer OTHER | LOC: FIMAGING 10:13 | PROVIDERS: ATTEND Family Medicine | PROC: 0W9F3ZZ Drainage of Abdominal Wall, Percutaneous Approach (ICD-10-PCS; principal; 2017-12-07) | DX: R18.8 Other ascites (principal); M54.9 Dorsalgia, unspecified; C53.9 Malignant neoplasm of cervix uteri, unspecified ==

== ENCOUNTER → 2017-12-21 | Outpatient (CLI) | payer OTHER | LOC: FIMAGING 12:37 | PROVIDERS: ATTEND Family Medicine | PROC: 0W9F30Z Drainage of Abdominal Wall with Drainage Device, Percutaneous Approach (ICD-10-PCS; principal; 2017-12-21) | DX: R18.8 Other ascites (principal); C53.9 Malignant neoplasm of cervix uteri, unspecified; M54.9 Dorsalgia, unspecified ==

== ENCOUNTER → 2018-01-04 | Outpatient (CLI) | payer OTHER | PROC: 0W9G3ZZ Drainage of Peritoneal Cavity, Percutaneous Approach (ICD-10-PCS; principal; 2018-01-04) | DX: R18.8 Other ascites (principal); C53.9 Malignant neoplasm of cervix uteri, unspecified ==

== ENCOUNTER → 2018-01-10 | Outpatient (CLI) | payer OTHER | LOC: FIMAGING 12:43 | PROVIDERS: ATTEND Family Medicine | PROC: 0W9G3ZZ Drainage of Peritoneal Cavity, Percutaneous Approach (ICD-10-PCS; principal; 2018-01-10) | DX: R18.8 Other ascites (principal); C53.9 Malignant neoplasm of cervix uteri, unspecified; M54.9 Dorsalgia, unspecified ==

== ENCOUNTER → 2018-01-12 | Outpatient (CLI) | payer OTHER ==
[~2018-01-12] MED LIST changes: +IOPAMIDOL (ISOVUE-300) 100 ML BTL ONE; -LIDOCAINE 1% 300 MG/30 ML SDV ONE
== END ==
LOC: FIMAGING 14:25
PROVIDERS: ATTEND Family Medicine
DX: C53.9 Malignant neoplasm of cervix uteri, unspecified (principal); R18.8 Other ascites
CPT/HCPCS: 74177; Q9967

== ENCOUNTER 2018-01-15 00:44 | Inpatient (IN) | payer OTHER ==
--- NOTE | 2018-01-15 01:19 | EDPHY ---
H & P Stated Complaint: N/V, SOB Time Seen by Provider: 01/15/18 01:12 HPI/ROS: Chief Complaint: Abdominal pain, shortness of breath, tachycardia HPI: 67-year-old woman with a history of metastatic cervical cancer with carcinomatosis. Patient is admitted recently with partial small-bowel obstruction. She had a CT scan 2 days ago to evaluate for worsening abdominal discomfort. Patient states that since that time she has had persistent mid abdominal pain. Some nausea vomiting associated with this. This evening she has had worsening shortness of breath and her heart has been racing. No fevers or chills. No cough. She did have a large bowel movement today. She does have a history of recurrent ascites and last had a paracentesis 4 days ago. ROS: 10 point Review of Systems is negative except as noted in the HPI. PMH: Metastatic cervical cancer with carcinomatosis, small-bowel obstruction, ascites Social History: No smoking, no alcohol, no recreational drug use Family History: non-contributory Physical Exam: Tachycardic, hypoxemic Gen: Awake, Alert, moderate distress HEENT: Nose: no rhinorrhea Eyes: PERRLA, EOMI Mouth: Moist mucosa Neck: Supple, no JVD Chest: nontender, crackles at the bilateral bases Heart: S1, S2 normal, no murmur Abd: Soft, distended, mild diffuse tenderness, no guarding Back: no CVA tenderness, no midline tenderness Ext: no edema, non-tender Skin: no rash Neuro: CN II-XII intact, Sensation grossly intact, Strength 5/5 in bilateral upper and lower extremities - Personal History Tetanus Vaccine Date: 2013 - Medical/Surgical History Hx Asthma: No Hx Chronic Respiratory Disease: No Hx Diabetes: No Hx Cardiac Disease: No Hx Renal Disease: No Hx Cirrhosis: No Hx Alcoholism: No Hx HIV/AIDS: No Hx Splenectomy or Spleen Trauma: No Other PMH: Metastatic cervical cancer. acities with frequent paracentesis. Recurrent small-bowel obstruction. tonsilectomy. hysterectomy. Bowel blockage - Social History Smoking Status: Never smoked Constitutional: Initial Vital Signs Temperature (C) 36.5 C 01/15/18 00:49 Heart Rate 139 H 01/15/18 00:49 Respiratory Rate 20 01/15/18 00:49 Blood Pressure 151/92 H 01/15/18 00:49 O2 Sat (%) 50 L 01/15/18 00:49 O2 Delivery Mode Non-Rebreather Mask O2 (L/minute) 15 Allergies/Adverse Reactions: Sulfa (Sulfonamide Antibiotics) Allergy (Severe, Verified 01/07/18 23:26) Rash cisplatin Allergy (Verified 01/07/18 23:26) Rash Home Medications: Medication Instructions Recorded Thyroid,Pork [Westhroid] 32.5 mg PO DAILY 02/23/16 Cmp Progesteron Crm 300mg/Ml 1 leighton TP HS 08/09/17 Herbals/Supplements -Info Only 1 ea PO DAILY 09/23/17 TPN [Hyperalimentation] 1 ea IV DAILY@199912/26/17 Metoclopramide [Reglan 5 mg (*)] 5 mg PO Q8H PRN #10 tab 01/09/18 Medical Decision Making - Diagnostics Imaging Results: CT scan of the chest shows diffuse pneumonia. There is some moderate bilateral pleural effusions. There is no PE. Study interpreted by Dr. Cota. Abdominal x-ray shows multiple air-fluid levels consistent with bowel obstruction. ED Course/Re-evaluation: 67-year-old woman presenting in tachycardic and hypoxemic with a history of cancer. No fever. No cough. Symptoms are very concerning for possible PE. She also has abdominal distention recent bowel obstructions. She states she had a CT scan 2 days ago. She does not want another CT scan her abdomen at this time. She has consented to CT scan of the chest. Will obtain CT scan and KUB and laboratory evaluations. CT scan results noted. No PE but there is diffuse infiltrate. Abdominal x-ray shows air-fluid levels consistent with bowel obstruction. Given the infiltrate in her vital signs she does meet SIRS criteria. Lactic acid has been sent. I will cover her for hospital-acquired pneumonia. I have ordered 2 g of ceftriaxone IV. Lactic acid is 1.7. Patient's vital signs have improved. I have discussed with Dr. Gardner, hospitalist. She will admit to her service for further care. - Data Points Laboratory Results: Laboratory Results 01/15/18 01:22 01/15/18 01:22 01/15/18 01/15/18 01/15/18 03:27 01:31 01:22 WBC RBC Hgb POC Hgb 12.9 gm/dL gm/dL (12.6-16.3) Hct POC Hct 38 % % (38-47) MCV MCH MCHC RDW Plt Count MPV Neut % (Auto) Lymph % (Auto) Wirt % (Auto) Eos % (Auto) Baso % (Auto) Nucleat RBC Rel Count Absolute Neuts (auto) Absolute Lymphs (auto) Absolute Monos (auto) Absolute Eos (auto) Absolute Basos (auto) Absolute Nucleated RBC Immature Gran % Immature Gran # RBC/WBC/PLT Morphology Platelet Estimate VBG Lactic Acid 1.7 mmol/L mmol/L (0.7-2.1) POC Sodium 140 mEq/L mEq/L (135-145) Sodium POC Potassium 3.1 mEq/L L mEq/L (3.3-5.0) Potassium POC Chloride 101 mEq/L mEq/L (97-110) Chloride Carbon Dioxide Anion Gap POC BUN 17 mg/dL mg/dL (7-23) BUN Creatinine POC Creatinine 0.3 mg/dL L mg/dL (0.6-1.0) Estimated GFR Glucose POC Glucose 105 mg/dL H mg/dL (70-100) Calcium POC Troponin I 0.01 ng/mL ng/mL (0.00-0.08) 01/15/18 01/15/18 01:22 01:22 WBC 1.80 10^3/uL L 10^3/uL (3.80-9.50) RBC 3.99 10^6/uL L 10^6/uL (4.18-5.33) Hgb 12.2 g/dL L g/dL (12.6-16.3) POC Hgb Hct 37.2 % L % (38.0-47.0) POC Hct MCV 93.2 fL fL (81.5-99.8) MCH 30.6 pg pg (27.9-34.1) MCHC 32.8 g/dL g/dL (32.4-36.7) RDW 16.1 % H % (11.5-15.2) Plt Count 452 10^3/uL H 10^3/uL (150-400) MPV 11.1 fL fL (8.7-11.7) Neut % (Auto) 80.6 % H % (39.3-74.2) Lymph % (Auto) 18.3 % % (15.0-45.0) Wirt % (Auto) 1.1 % L % (4.5-13.0) Eos % (Auto) 0.0 % L % (0.6-7.6) Baso % (Auto) 0.0 % L % (0.3-1.7) Nucleat RBC Rel Count 0.0 % % (0.0-0.2) Absolute Neuts (auto) 1.45 10^3/uL L 10^3/uL (1.70-6.50) Absolute Lymphs (auto) 0.33 10^3/uL L 10^3/uL (1.00-3.00) Absolute Monos (auto) 0.02 10^3/uL L 10^3/uL (0.30-0.80) Absolute Eos (auto) 0.00 10^3/uL L 10^3/uL (0.03-0.40) Absolute Basos (auto) 0.00 10^3/uL L 10^3/uL (0.02-0.10) Absolute Nucleated RBC 0.00 10^3/uL 10^3/uL (0-0.01) Immature Gran % 0.0 % % (0.0-1.1) Immature Gran # 0.00 10^3/uL 10^3/uL (0.00-0.10) RBC/WBC/PLT Morphology TNP Platelet Estimate TNP VBG Lactic Acid POC Sodium Sodium 138 mEq/L mEq/L (135-145) POC Potassium Potassium 3.8 mEq/L mEq/L (3.3-5.0) POC Chloride Chloride 104 mEq/L mEq/L (97-110) Carbon Dioxide 24 mEq/l mEq/l (22-31) Anion Gap 10 mEq/L mEq/L (8-16) POC BUN BUN 20 mg/dL mg/dL (7-23) Creatinine 0.4 mg/dL L mg/dL (0.6-1.0) POC Creatinine Estimated GFR > 60 Glucose 105 mg/dL H mg/dL (70-100) POC Glucose Calcium 8.9 mg/dL mg/dL (8.5-10.4) POC Troponin I Medications Given: Discontinued Medications Ceftriaxone Sodium 2 gm/ (Sodium Chloride) 50 mls @ 100 mls/hr IV EDNOW ONE PRN Reason: Protocol Stop: 01/15/18 03:28 Last Admin: 01/15/18 03:24 Dose: 50 mls Point of Care Test Results: Chemistry 01/15/18 01/15/18 01:31 01:22 POC Sodium 140 mEq/L mEq/L (135-145) POC Potassium 3.1 mEq/L L mEq/L (3.3-5.0) POC Chloride 101 mEq/L mEq/L (97-110) POC BUN 17 mg/dL mg/dL (7-23) POC Creatinine 0.3 mg/dL L mg/dL (0.6-1.0) POC Glucose 105 mg/dL H mg/dL (70-100) POC Troponin I 0.01 ng/mL ng/mL (0.00-0.08) ISTAT H&H 01/15/18 01:22 POC Hgb 12.9 gm/dL gm/dL (12.6-16.3) POC Hct 38 % % (38-47) Departure - Departure
[2018-01-15 01:37] LABS: PLATELET COUNT 452 10^3/uL (150-400)
[2018-01-15] MEDS ORDERED: IOPAMIDOL (ISOVUE 370) 100 ML BTL IV ONE (01:40)
[2018-01-15] MEDS ORDERED: ONDANSETRON 4 MG/2 ML VIAL IVP PRN (03:39)
[2018-01-15] MEDS ORDERED: ACETAMINOPHEN 325 MG TAB PO PRN (03:39)
[2018-01-15] MEDS ORDERED: PROMETHAZINE HCL 25 MG/ML INJ IVP PRN (03:39)
[2018-01-15] MEDS ORDERED: LORazepam 2 MG/ML INJ IVP PRN (03:39)
[2018-01-15] MEDS ORDERED: NS 1,000 ML IV SCH (03:45)
[2018-01-15] MEDS ORDERED: NS 1,000 ML IV ONE (03:52)
--- NOTE | 2018-01-15 05:26 | PDGENHP ---
History and Physical - Chief Complaint Shortness of breath, tachycardia, abdominal pain - History of Present Illness Source-patient provides history appears reliable. EMR was reviewed and case discussed with ED provider. Patient is well known to our service with multiple hospital stays in December of this month long. Patient was just recently discharged following admission for bowel obstruction. HPI - this is a very pleasant 67-year-old female with past medical history significant for metastatic cervical cancer with carcinomatosis, associated loculated ascites, recurrent bowel obstruction, hypothyroidism, severe protein calorie malnutrition on TPN, GERD who presents emergency department today with complaints of abdominal pain for 2 days, tachycardia and dyspnea. Patient denies any fevers but did experience some chills on her way to the hospital this evening. Patient with a history of recurrent small bowel obstructions. She also receives weekly therapeutic paracenteses and reports last total volume removed was 900 mL. She states that after her discharge on 01/09/2018 that she was doing fairly well and was able to tolerate some minimal oral intake. Two days ago on Wednesday patient reports that she went for outpatient CT abdomen pelvis follow-up with oral contrast and following that patient subsequently became nauseous with some emesis no hematemesis and just feeling unwell. This evening at home parents she developed increasing dyspnea and shortness of breath. She also noted that her heart rate had increased above 100. Patient is not undergoing chemotherapy or radiation therapy and is not a candidate for any surgical intervention. Patient reports that her last bowel movement was occurred yesterday morning without any melena or hematochezia. Patient did require use of a glycerin suppository for affect. History Information - Allergies/Home Medication List Allergies/Adverse Reactions: Sulfa (Sulfonamide Antibiotics) Allergy (Severe, Verified 01/07/18 23:26) Rash cisplatin Allergy (Verified 01/07/18 23:26) Rash Home Medications: Thyroid,Pork [Westhroid] 32.5 mg PO DAILY 02/23/16 [Last Taken 01/07/18] Cmp Progesteron Crm 300mg/Ml 1 leighton TP HS 08/09/17 [Last Taken 01/07/18] Herbals/Supplements -Info Only 1 ea PO DAILY 09/23/17 [Last Taken 2 Weeks Ago ~ 10/20/17] TPN [Hyperalimentation] 1 ea IV DAILY@199912/26/17 [Last Taken 01/08/18] I have personally reviewed and updated: family history, medical history, social history, surgical history - Past Medical History cancer (2009 diagnosis of metastatic cervical cancer with peritoneal carcinomatosis and loculated ascites, receiving weekly paracenteses with lidocaine injection) Additional medical history: Chronic compression fracture of T12, L2, L3-L4. Severe protein calorie malnutrition. Recurrent small-bowel obstruction recently discharged. Chronic pleural effusions. Daily TPN. Right hydronephrosis presumptively 2/2 malignancy. Pneumothorax after thoracentesis on the right and scaring. GERD. Anemia requiring transfusion - Surgical History Additional surgical history: Hysterectomy. Tonsillectomy. Adenoidectomy. Paracentesis weekly. Intra-abdominal bowl debulking - Family History Positive for: cancer (Extensive family hx of cancer) Additional family history: Multiple types of cancer patient is unable to specify and father, maternal grandfather, maternal and paternal grandmother. Brother with colon cancer. - Social History Smoking Status: Never smoked Additional social history: Independent in her ADLs. 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 Lives with her long-time partner Sterling. Cor status-full. Review of Systems Review of Systems: ROS: 10pt was reviewed & negative except for what was stated in HPI & below Constitutional: Reports: chills. Denies: fever, recent illness EENMT: Reports: no symptoms, other (Wears glasses) Cardiac: Reports: no symptoms Respiratory: Reports: cough, shortness of breath. Denies: wheezing Gastrointestinal: Reports: vomitting, abdominal pain, abdominal distention, nausea. Denies: blood streaked stools, rectal bleeding, diarrhea Genitourinary: Reports: no symptoms Muscolosketal: Reports: no symptoms Skin: Reports: no symptoms Neurological: Reports: no symptoms Hematologic/Lymphatic: Reports: anemia Physical Exam Physical Exam: Selected Entries 01/15/18 00:49 Blood Pressure Automatic Method Heart Rate 139 H Respiratory 20 Rate O2 Sat (%) 50 L Temperature (C) 36.5 C Blood Pressure 151/92 H Mean Arterial 111 H Pressure (MAP) O2 Delivery Room Air Mode Temperature Oral Source Temp Pulse Resp BP Pulse Ox 36.6 C 112 H 24 H 110/74 97 01/15/18 04:10 01/15/18 04:10 01/15/18 04:10 01/15/18 04:10 01/15/18 04:10 O2 (L/minute) 10 FIO2 (%) 100 Constitutional: chronically ill appearing, cachectic, other (Patient lays awake in bed. NAD. She does have increased work of breathing and tachypneic to the 40s. She is cachectic and frail appearing.) Eyes: PERRL, anicteric sclera, EOMI (Grossly normal), No scleral injection Ears, Nose, Mouth, Throat: dry mucous membranes, other (Dry cracked lips. no nasal discharge) Cardiovascular: regular rate and rhythym, pulses symmetric bilaterally, tachycardia, No edema Peripheral Pulses: 1+: dorsalis-pedis (R), dorsalis-pedis (L) Respiratory: reduced air movement (Right greater than left), inspiratory crackles, other (Increased work of breathing/tachypnea. Patient can speak in 5- 10 word sentences.), No expiratory wheeze, No respiratory distress, No rhonchi Gastrointestinal: tenderness, distension (Mild), No guarding Genitourinary: no bladder tenderness, No maki in urethra Skin: warm, normal color, no rashes or abrasions, no fluctuance, other ( Bruising on arms and chest) Musculoskeletal: generalized weakness, other (Patient is able to move all her extremities while lying in bed.) Neurologic: AAOx3, other (Grossly nonfocal), No facial droop Psychiatric: interacting appropriately, not anxious, not encephalopathic, thought process linear Lab Data & Imaging Review 01/15/18 01:22 01/15/18 01: WBC 1.80 10^3/uL (3.80-9.50) L 01/15/18 01:22 RBC 3.99 10^6/uL (4.18-5.33) L 01/15/18 01:22 Hgb 12.2 g/dL (12.6-16.3) L 01/15/18 01:22 POC Hgb 12.9 gm/dL (12.6-16.3) 01/15/18 01: Hct 37.2 % (38.0-47.0) L 01/15/18 01: POC Hct 38 % (38-47) 01/15/18 01:22 MCV 93.2 fL (81.5-99.8) 01/15/18 01:22 MCH 30.6 pg (27.9-34.1) 01/15/18 01:22 MCHC 32.8 g/dL (32.4-36.7) 01/15/18 01:22 RDW 16.1 % (11.5-15.2) H 01/15/18 01:22 Plt Count 452 10^3/uL (150-400) H 01/15/18 01:22 MPV 11.1 fL (8.7-11.7) 01/15/18 01:22 Neut % (Auto) 80.6 % (39.3-74.2) H 01/15/18 01:22 Lymph % (Auto) 18.3 % (15.0-45.0) 01/15/18 01:22 [place] % (Auto) 1.1 % (4.5-13.0) L 01/15/18 01:22 Eos % (Auto) 0.0 % (0.6-7.6) L 01/15/18 01: Baso % (Auto) 0.0 % (0.3-1.7) L 01/15/18 01:22 Nucleat RBC Rel Count 0.0 % (0.0-0.2) 01/15/18 01:22 Absolute Neuts (auto) 1.45 10^3/uL (1.70-6.50) L 01/15/18 01:22 Absolute Lymphs (auto) 0.33 10^3/uL (1.00-3.00) L 01/15/18 01:22 Absolute Monos (auto) 0.02 10^3/uL (0.30-0.80) L 01/15/18 01:22 Absolute Eos (auto) 0.00 10^3/uL (0.03-0.40) L 01/15/18 01:22 Absolute Basos (auto) 0.00 10^3/uL (0.02-0.10) L 01/15/18 01:22 Absolute Nucleated RBC 0.00 10^3/uL (0-0.01) 01/15/18 01:22 Immature Gran % 0.0 % (0.0-1.1) 01/15/18 01: Immature Gran # 0.00 10^3/uL (0.00-0.10) 01/15/18 01:22 RBC/WBC/PLT Morphology TNP 01/15/18 01:22 Platelet Estimate TNP 01/15/18 01:22 VBG Lactic Acid 1.7 mmol/L (0.7-2.1) 01/15/18 03:27 POC Sodium 140 mEq/L (135-145) 01/15/18 01:22 Sodium 138 mEq/L (135-145) 01/15/18 01:22 POC Potassium 3.1 mEq/L (3.3-5.0) L 01/15/18 01:22 Potassium 3.8 mEq/L (3.3-5.0) 01/15/18 01:22 POC Chloride 101 mEq/L (97-110) 01/15/18 01:22 Chloride 104 mEq/L (97-110) 01/15/18 01:22 Carbon Dioxide 24 mEq/l (22-31) 01/15/18 01:22 Anion Gap 10 mEq/L (8-16) 01/15/18 01:22 POC BUN 17 mg/dL (7-23) 01/15/18 01:22 BUN 20 mg/dL (7-23) 01/15/18 01:22 Creatinine 0.4 mg/dL (0.6-1.0) L 01/15/18 01:22 POC Creatinine 0.3 mg/dL (0.6-1.0) L 01/15/18 01:22 Estimated GFR > 60 01/15/18 01:22 Glucose 105 mg/dL (70-100) H 01/15/18 01:22 POC Glucose 105 mg/dL (70-100) H 01/15/18 01:22 Calcium 8.9 mg/dL (8.5-10.4) 01/15/18 01:22 POC Troponin I 0.01 ng/mL (0.00-0.08) 01/15/18 01:31 Imaging Review: CTA of the chest preliminary report noted below. DIFFUSE BILATERAL PNEUMONITIS VS PNEUMONIA MODERATE RIGHT PLEURAL EFFUSION SMALL LOCULATED LEFT BASE PLEURAL EFFUSION NO PULMONARY EMBOLUS DISCUSSED WITH DR ESPINOZA AT 0215 Authored by: Brennen Cota Authored on: 15-Jan-2018 02:18 Abdominal x-ray series - showing persistent air-fluid levels in the bowel consistent with obstruction. Visualized and Interpreted imaging results: Yes EKG additional interpertation: Telemetry sinus tachycardia. Assessment & Plan Assessment: 67-year-old female with history of metastatic cervical cancer and carcinomatosis , loculated ascites, chronic bowel obstruction, chronic abdominal pain who presents emergency department today with complaints of dyspnea and tachycardia. #Bilateral pneumonia - patient with recent hospital stay. She has been started on Rocephin. She does meet sepsis criteria without organ dysfunction based on tachycardia and leukopenia. Her lactate however was within normal limits. Patient will receive IV fluid hydration for head transition to her TPN for supplementation. #Acute hypoxic respiratory failure - patient require placement on non- rebreather which is slowly improving. Will try to transition her to nasal cannula as tolerated. #Bilateral pleural effusions - patient's most recent imaging study outpatient did reveal she had bilateral pleural effusions she now has bilateral infiltrates in addition. #Sepsis without organ dysfunction - as noted above #Bowel obstruction - patient be made NPO. Try to limit narcotic therapy. Suppositories p.r.n. #Loculated ascites - patient undergoes weekly paracenteses #Leukopenia - continue monitor CBC. #Anemia - patient chronic anemia and receives occasional transfusions. Acquired currently will monitor H&H. #Severe protein calorie malnutrition - continue patient's daily TPN. Weight of 34.8 kg and BMI is 14. #Metastatic cervical cancer - patient undergoes weekly paracenteses. No therapy is surgical interventions. #hypothyroidism - patient may require IV replacement given her current small bowel obstruction along with nausea vomiting. FEN - complete fluids from ED. Transition to TPN. Electrolyte monitoring replacement if needed. Patient will be NPO. PPX-SCDs. Lovenox. Cor status-full. Disposition-patient admitted inpatient status on ST you floor secondary to acute hypoxic respiratory failure and persistent tachypnea she requires close monitoring on ST you floor. Anticipate greater than 2 midnight stay.
--- NOTE | 2018-01-15 06:11 | PDMN ---
Medical Necessity Medical necessity: [facility] [place]: [id number] A-2 days: bilat. pna with acute hypoxic resp failure, on non-rebreather, 50% RA, 88% non rebreather, bilateral effusions, sepsis with tachycardia and leukopenia, tachypnea, bowel obstruction- pt will be NPO, loculated ascites-pt undergo's weekly paracentesis, anemia- cont to monitor, Hgb 12.2, , metastatic cervical ca. severe protein calorie malnutrition-cont. daily TPN, hypothyroidism, further monitoring and tx needed for above anticipate > 2 MN.
[2018-01-15 06:43] LABS: PLATELET COUNT 300 10^3/uL (150-400)
--- NOTE | 2018-01-15 16:23 | HOSPPROG ---
Hospitalist Progress Note Assessment/Plan: Subjective Follow-up on acute hypoxic respiratory failure and pneumonia as well as small bowel obstruction. Patient states she is breathing much easier today as compared to when she 1st came into the emergency room. No subjective fevers. She does state that she was coughing over the prior days before coming into the hospital. In regards to her abdomen, she does feel that she could tolerate liquids at this point in time. She has recurrent admissions for small bowel obstructions related to her metastatic cervical cancer. No nausea or vomiting and she did state that she had a bowel movement yesterday. I did readdress code status with her and she states that she is a full code at this point time. Objective Vital signs as detailed below Exam General-patient is thin and cachectic appearing but she is awake alert conversant in no acute distress Heart-regular no murmurs appreciated Lungs-diminished breath sounds at right lung base mild crackles noted at mid lung bruno bilaterally no significant wheezing and respiratory effort appears normal Abdomen-mildly distended but soft bowel sounds diminished but present nontender -no Mayorga catheter in place Skin-no concerning skin rashes noted Labs as detailed below Assessment plan Acute hypoxic respiratory failure-this is secondary to pneumonia. There may also be a component of respiratory failure secondary to right-sided pleural effusion. Continue with scheduled nebulizers and oxygen. Wean as able. Pneumonia-much improved clinical response overnight. She was treated more as community-acquired pneumonia with ceftriaxone. However she has had significant hospital exposure. For now I will add azithromycin along with ceftriaxone and follow closely. If any clinical decline we would need to consider expanding our antibiotic coverage. Pleural [id number] is greater than left. It appears she had a prior pneumothorax with the past. Clinically I suspect much of her hypoxia and respiratory complaints are related to the pneumonia more so than the effusions so fall will follow for now without thoracentesis. Small bowel obstruction-clinically improved today so will try clears and observe over the next 24 hr. Ascites-follow for now. Metastatic cervical cancer-patient is not interested in any chemotherapy at this point time so oncology has not been involved with her case. She has looked into alternative methods of treatment. Hypothyroidism-continue levothyroxine. DVT prophylaxis-Lovenox. Disposition-likely able to return home with her where she was residing prior to coming into the hospital. Objective: Vital Signs Temp Pulse Resp BP Pulse Ox 36.6 C 106 H 25 H 126/75 H 97 01/15/18 12:00 01/15/18 12:00 01/15/18 12:00 01/15/18 12:00 01/15/18 12:00 Laboratory Results 01/15/18 06:25 01/15/18 06:25 01/14/18 01/15/18 01/16/18 05:59 05:59 05:59 Intake Total 1500 Output Total 350 Balance 1150 ICD10 Worksheet Patient Problems: Problems Problem Status Onset Abdominal pain Acute Ascites Acute Ascites, malignant Acute Cervical cancer Acute Hyponatremia Acute Intractable generalized abdominal pain Acute Nausea and vomiting Acute Obstruction of right ureter Acute Partial small bowel obstruction Acute SBO (small bowel obstruction) Acute
--- NOTE | 2018-01-15 16:41 | ASMTCASEMG ---
Living Arrangements What is your living Answers: With Partner arrangement? Who do you live with? Type Of Residence What kind of residence do Answers: House you live in? Discharge Plan Comments Coordination Status Comments Notes: Patient is a 67yo female with a life partner who presents with complaints of dyspnea and tachycardia. Patient was admitted for bilateral pneumonia, acute hypoxic respiratory failure, sepsis,bowel obstruction,pleural effusions, leukopenia, anemia and metastatic cervical cancer. OT/PT have been ordered. D/C needs TBD. CM will follow. Date Signed: 01/15/2018 04:40 PM Electronically Signed By:Merlyn Reich LCSW
[2018-01-15] MEDS: IPRATROPIUM/ALBUTEROL 3 ML DEYVIAL IH SCH ×2 (17:12→23:07)
[2018-01-15] MEDS: AZITHROMYCIN IV 500 MG in NS 250 ML IV SCH (20:07)
[2018-01-15] MEDS ORDERED: TPN 1 EA BAG IV SCH (21:00)
[2018-01-16] MEDS: IPRATROPIUM/ALBUTEROL 3 ML DEYVIAL IH SCH (06:00)
[2018-01-16] MEDS ORDERED: IPRATROPIUM/ALBUTEROL 3 ML DEYVIAL IH PRN (08:28)
[2018-01-16] MEDS ORDERED: GLYCERIN ADULT 1 EACH SUPP PR ONE (08:45)
[2018-01-16] MEDS: ENOXAPARIN 40 MG/0.4 ML SYR SC SCH (09:42)
[2018-01-16] MEDS: AZITHROMYCIN IV 500 MG in NS 250 ML IV SCH (09:50)
--- NOTE | 2018-01-16 17:04 | HOSPPROG ---
Hospitalist Progress Note Assessment/Plan: Subjective Follow-up on acute hypoxic respiratory failure and pneumonia as well small bowel obstruction. Patient states she is tolerating liquids okay without any nausea or vomiting. Her last bowel movement was 2 days ago. We did discuss escalating to full liquid today. She seemed to be well-versed in advancing her diet with small bowel obstructions. We discussed planning for discharge tomorrow. She is still only a small amount of oxygen but does state she has oxygen at home if she would need to continue continuously for a time. We did discuss that it may be safer to use IV antibiotics as well considering the concurrent small bowel obstruction. We discussed involving home health to her we could make this happen. Objective Vital sign detailed below Exam General-patient is thin and cachectic appearing but she is awake alert conversant in no acute distress Heart-regular no murmurs appreciated Lungs-diminished breath sounds at right lung base mild crackles noted at mid lung bruno bilaterally no significant wheezing and respiratory effort appears normal Abdomen-mildly distended but soft bowel sounds diminished but present nontender -no Mayorga catheter in place Skin-no concerning skin rashes noted Labs as detailed below Assessment plan Acute hypoxic respiratory failure-this is secondary to pneumonia. There may also be a component of respiratory failure secondary to right-sided pleural effusion. Continue with scheduled nebulizers and oxygen. Wean as able. Pneumonia-much improved clinical response overnight. Continue with ceftriaxone and azithromycin. It may be easier to transition to IV Levaquin once daily at the time of discharge. Pleural sbgruxoev-uidgv-eabnv is greater than left. It appears she had a prior pneumothorax with the past. Clinically I suspect much of her hypoxia and respiratory complaints are related to the pneumonia more so than the effusions so fall will follow for now without thoracentesis. Small bowel obstruction-advance diet as tolerated. Ascites-patient has a scheduled outpatient paracentesis for tomorrow afternoon. Metastatic cervical cancer-patient is not interested in any chemotherapy at this point time so oncology has not been involved with her case. She has looked into alternative methods of treatment. Hypothyroidism-continue levothyroxine. DVT prophylaxis-Lovenox. Disposition-likely able to return home with her where she was residing prior to coming into the hospital. Objective: Vital Signs Temp Pulse Resp BP Pulse Ox 37.1 C 107 H 14 153/86 H 96 01/16/18 07:52 01/16/18 07:52 08/26/18 07:52 01/16/18 07:52 01/16/18 07:52 Laboratory Results 01/15/18 06:25 01/15/18 06:25 01/15/18 01/16/18 01/17/18 05:59 05:59 05:59 Intake Total 1500 1200 Output Total 350 400 Balance 1150 800 ICD10 Worksheet Patient Problems: Problems Problem Status Onset Abdominal pain Acute Ascites Acute Ascites, malignant Acute Cervical cancer Acute Hyponatremia Acute Intractable generalized abdominal pain Acute Nausea and vomiting Acute Obstruction of right ureter Acute Partial small bowel obstruction Acute SBO (small bowel obstruction) Acute
[2018-01-16] MEDS ORDERED: TPN 1 EA BAG IV SCH (21:00)
[2018-01-17 04:39] LABS: PLATELET COUNT 260 10^3/uL (150-400)
[2018-01-17 04:41] LABS: INR 1.18 (0.83-1.16); PROTIME(PATIENT) 15.2 SEC (12.0-15.0)
[2018-01-17 08:12] VITALS: BP 139/83
[2018-01-17] MEDS: AZITHROMYCIN IV 500 MG in NS 250 ML IV SCH (08:46)
[2018-01-17] MEDS: ENOXAPARIN 40 MG/0.4 ML SYR SC SCH (08:50)
--- NOTE | 2018-01-17 10:01 | PDIAF ---
- Diagnosis Diagnosis: Pneumonia Code Status: Full Code - Medication Management Discharge Medications: Medications to Continue on Transfer Thyroid,Pork [Westhroid] 32.5 mg PO DAILY 02/23/16 [Last Taken 01/14/18] Herbals/Supplements -Info Only 1 ea PO DAILY 09/23/17 [Last Taken 2 Weeks Ago ~ 10/20/17] TPN [Hyperalimentation] 1 ea IV DAILY@199912/26/17 [Last Taken 01/08/18] Metoclopramide [Reglan 5 mg (*)] 5 mg PO Q8H PRN #10 tab 01/09/18 [Last Taken ] Compounded Progesterone Cream 300mg/Ml 1 leighton TP HS 01/15/18 [Last Taken 01/14/18 ] Ondansetron HCl [Zofran] 8 mg PO Q8H PRN 01/15/18 [Last Taken Unknown] Propranolol HCl [Inderal 10mg (*)] 10 mg PO Q12H 01/15/18 [Last Taken 01/12/18] traMADol 50 mg PO Q6H PRN 01/15/18 [Last Taken 01/14/18] levOFLOXACIN 750 MG/DEXTROSE [levAQUIN (PREMIX) (*)] 150 ml IV EVERY OTHER DAY # 3 bag 01/17/18 [Last Taken Unknown] Additional Medication Instructions: Levaquin 750mg IV q48 hours X 3 doses to start 01/18/2018. Discharge Medications: Refer to the Discharge Home Medication list for PRN reason. PICC Care - Routine: Yes - Orders Services needed: Home Residential Care Face to Face: I certify that this patient was under my care and that I had the required icor-os-fkey encounter meeting the encounter requirements on the discharge day. My findings support the fact that the patient is homebound as defined in Home Care Face to Face Continued: CMS Chapter 7 Medicare Benefits Manual 30.1.1 , The condition of the patient is such that there exists a normal inability to leave home and consequently, leaving home would require a considerable and taxing effort. Diet Recommendation: no restrictions on diet Diet Texture: Regular Texture Diet Additional Instructions: Resume home TPN. - Follow Up Care Current Providers and Referrals: Noelle Ventura [Primary Care Provider] - As per Instructions
--- NOTE | 2018-01-17 15:18 | ASMTLACE ---
[place] Length of stay for Answers: 2 days current admission Acuity / Level of Answers: Yes Care: Did the patient have an inpatient admission? Comorbidities - select Answers: Other Notes: small bowel all that apply obstruction, cervical cancer # of Emergency department Answers: 3-4 visits in the last 6 months Score: 9 Date Signed: 01/17/2018 03:18 PM Electronically Signed By:Jodi Horn RN
--- NOTE | 2018-01-17 15:21 | ASMTDCNOTE ---
Case Management Discharge Discharge Order Complete? Answers: Yes Patient to Obtain Answers: Other Notes: [facility] to provide Medications Transportation Arranged Answers: Family/Friends Faxed Final Orders Answers: Yes Notes: to [facility] and [facility] Agency/Facility Transfer Answers: Yes Notes: to [facility] and [facility] Report Printed & Faxed to Receiving Agency Family Notified Answers: Yes Notes: in room Discharge Comments Notes: 01/17/2018 Case Management Note Pt discharged with IV antibiotics provided through [facility]. Pt is current with [facility]. Pt was current with [facility] for TPN. Faxed final orders to both agencies. transported pt home. No further case management d/c needs were identified. Date Signed: 01/17/2018 03:20 PM Electronically Signed By:Jodi Horn RN
--- NOTE | 2018-01-17 15:21 | ASDISCHSUM ---
Discharge Information Plan Status:IV ABX/Infusion Medically Cleared to Leave:01/17/2018 Discharge Date:01/17/2018 10:13 AM D/C Disposition:Home Health Service ADT D/C Disposition:Home Health Service Projected Discharge Date:01/17/2018 11:00 AM Transportation at D/C:Family Discharge Delay Reason: Follow-Up Date:01/17/2018 11:00 AM Discharge Slot: Final Diagnosis: Placement Information Referral Type:Home Infusion Referral ID:[id number] Provider Name[facility] ([facility] include 234 beds at the [facility]) Address 1:[address] Address 2: City:[place] Selection Factors: State:[place] Referral Type:*Home Health Care Services Referral ID:[id number] Provider Name:[facility] Address 1:[address] , [address] Address 2: City:[place] Selection Factors: State:[place] Patient Contact Information Contact Name:PARKER Relationship:Life Partner Address:[address] [place] [address] [address] Work Phone: City:[place] Alternate Phone: [facility]/Zip Code:[place] [address] Email: Financial Information Financial Class:Medicare Advantage Plans Primary Plan Desc:TalkSession Primary Plan Number:[id number] Secondary Plan Desc: Secondary Plan Number: Assessment Information LACE LACE Length of stay for Answers: 2 days current admission Acuity / Level of Answers: Yes Care: Did the patient have an inpatient admission? Comorbidities - select Answers: Other Notes: small bowel all that apply obstruction, cervical cancer # of Emergency department Answers: 3-4 visits in the last 6 months Score: 9 Date Signed: 01/17/2018 03:18 PM Electronically Signed By:Jodi Horn RN [facility] Initial CM Assessment Living Arrangements What is your living Answers: With Partner arrangement? Who do you live with? Type Of Residence What kind of residence do Answers: House you live in? Discharge Plan Comments Coordination Status Comments Notes: Patient is a 67yo female with a life partner who presents with complaints of dyspnea and tachycardia. Patient was admitted for bilateral pneumonia, acute hypoxic respiratory failure, sepsis,bowel obstruction,pleural effusions, leukopenia, anemia and metastatic cervical cancer. OT/PT have been ordered. D/C needs TBD. CM will follow. Date Signed: 01/15/2018 04:40 PM Electronically Signed By:Merlyn Reich LCSW Case Management Discharge Plan Note Case Management Discharge Discharge Order Complete? Answers: Yes Patient to Obtain Answers: Other Notes: [facility] to provide Medications Transportation Arranged Answers: Family/Friends Faxed Final Orders Answers: Yes Notes: to [facility] and [facility] Agency/Facility Transfer Answers: Yes Notes: to [facility] and [facility] Report Printed & Faxed to Receiving Agency Family Notified Answers: Yes Notes: in room Discharge Comments Notes: 01/17/2018 Case Management Note Pt discharged with IV antibiotics provided through [facility]. Pt is current with [facility]. Pt was current with [facility] for TPN. Faxed final orders to both agencies. transported pt home. No further case management d/c needs were identified. Date Signed: 01/17/2018 03:20 PM Electronically Signed By:Jodi Horn RN Intervention Information Intervention Type:*IM-Signed Date of Service:01/17/2018 10:25 AM Patient Type:Inpatient Staff Member:Cyndi Malave Hours: Discipline: Severity: Comment:
--- NOTE | 2018-01-17 18:28 | GDS ---
[f rep st] DISCHARGE SUMMARY DISCHARGE DIAGNOSES: 1. Small bowel obstruction. 2. Acute hypoxic respiratory failure. 3. Pneumonia. HISTORY OF PRESENT ILLNESS: The patient is a pleasant 67-year-old female with a past medical history of metastatic cervical cancer who presented to the [facility] Room on 12/23, with complaints of productive cough, shortness of breath, and abdominal distention. Her ches t CT revealed bilateral diffuse pneumonia and a moderate-size right pleural effusion. There was no p ulmonary emboli visible. Previous chest imaging earlier this year has also shown evidence of bilater al pleural effusions. Abdominal x-ray showed a suspected ileus. She was admitted to the hospital, started on IV antibiotic therapy, as well as initial bowel rest. F ortunately, she progressed rather well and noted significant improvement of her coughing. She was al so able to escalate her diet. She seemed to be well experienced in escalating her diet as she has wolf d recurrent small bowel obstructions and multiple hospitalizations. Considering the concurrent small bowel obstruction and uncertainty as to whether she would be able to tolerate oral antibiotic therapy, we made arrangements for IV antibiotics to be administered at [facility]. She states that she has a appointment later this afternoon on the day of discharge to have a para centesis performed and was hopeful to be discharged to keep this appointment. HOSPITAL COURSE: 1. Acute hypoxic respiratory failure, improved. She was able to be on room air at times, but may ne ed oxygen during the daytime as she recovers from her pneumonia. Continue to wean as able. 2. Pneumonia. She was treated with ceftriaxone and azithromycin during this hospitalization. At th e time of discharge for ease of use, I have adjusted this to Levaquin to be 750 mg IV q.48 hours for 3 additional doses. 3. Pleural effusions. These were noted on chest imaging from earlier this year. I suspect these ma y be related to her underlying malignancy; however, consideration was given to the fact these could b e related to her current pneumonia. We did discuss thoracentesis, however, there is some reluctancy as she had a pneumothorax in the past related to thoracentesis, so we opted to follow this for now; h owever, should she return to the hospital with any respiratory complaints, we may need to give more c onsideration to performing a thoracentesis for further evaluation. 4. Small bowel obstruction. This appears to be improving. She is passing gas and advancing her t. 5. Ascites. The patient has a scheduled paracentesis for later today. 6. Metastatic cervical cancer. Oncology has not been involved with her care as she has declined laura motherapy. She has looked into alternative treatment options. 7. Hypothyroidism. She was continued on pork thyroid. 8. Deep venous thrombosis prophylaxis. The patient was on Lovenox during this hospitalization. DISPOSITION: She appears stable for discharge home with the where she lives with her who is quite involved with her care. PHYSICAL EXAMINATION: VITAL SIGNS: On day of discharge: Temperature 36.8, blood pressure is 139/83 , heart rate 94, respirations 20, saturating 99% 3 L nasal cannula. GENERAL: Patient appears comfor table. She is awake, alert, conversant, in no acute distress. HEART: Regular. No murmurs. LUNGS: Clear to auscultation with normal respiratory effort. Diminished breath sounds at both lung bases. ABDOMEN: Soft, nontender, mildly distended. : No Mayorga catheter in place. EXTREMITIES: No si gnificant pitting edema. LABORATORY/IMAGING: Notable studies as detailed in the HPI. DISCHARGE MEDICATIONS: 1. Levaquin 750 mg IV every 48 hours x3 doses to start on 01/18/2018. 2. Reglan 5 mg every 8 hours as needed. 3. Zofran 8 mg every 8 hours as needed. 4. Propranolol 10 mg every 12 hours as needed. 5. Pork thyroid 32.5 mg. 6. TPN q.4 hours daily. 7. Tramadol every 6 hours as needed. DISCHARGE INSTRUCTIONS: I have recommended a followup visit with Interventional Radiology later toda y for patient. Otherwise, I would have keep scheduled followup with her primary provider. /[id number]/MODL
--- NOTE | 2018-01-20 14:16 | PQFORM ---
PHYSICIAN QUERY FORM Needs Your Response This query form is being sent to you to assure this patient record is coded properly. Please respond to the question below: EDUCATION PARAPROFESSIONAL QUESTION: Dr Payne Sepsis was documented in the record but not mentioned in the Summary. Did patient have Sepsis ? ___ Yes ___ No ___ Other (Please Specify ) ___ Unable to determine Thank You Mery DEUTSCH [employer] Repairer INSTRUCTIONS FOR RESPONSE: Answer question by clicking on the "Edit Document" button. Move cursor to area below the stars. When complete, hit "Save." Click on the "Sign" button, then click "Sign" again. Type in your PIN and hit "Enter." No. I cannot find that patient met criteria for sepsis. Vladislav CALZADA
== END 2018-01-17 10:13 | disposition home health service (06) | DRG 193 ==
LOC: F2N 04:01
PROVIDERS: ADMIT Family Medicine; ATTEND Family Medicine
DX: J18.9 Pneumonia, unspecified organism (principal); J96.01 Acute respiratory failure with hypoxia; K56.609 Unspecified intestinal obstruction, unspecified as to partial versus complete obstruction; C80.0 Disseminated malignant neoplasm, unspecified; E43 Unspecified severe protein-calorie malnutrition; J90 Pleural effusion, not elsewhere classified; Z85.41 Personal history of malignant neoplasm of cervix uteri; R18.0 Malignant ascites; E03.9 Hypothyroidism, unspecified
CPT/HCPCS: 82435-PO; 82565-PO; 82947-PO; 84132-PO; 84295-PO; 84484-PO; 84520-PO; 85014-PO; 96365; 97165-GO; G8987-GO-CI; G8988-GO-CI; J0456; J0696; J1650; Q9967

== ENCOUNTER → 2018-01-26 | Outpatient (CLI) | payer OTHER ==
[~2018-01-26] MED LIST changes: -IOPAMIDOL (ISOVUE-300) 100 ML BTL ONE; +LIDOCAINE 1% 300 MG/30 ML SDV ONE
== END ==
LOC: FIMAGING 08:35
PROVIDERS: ATTEND Family Medicine
PROC: 0W9G3ZZ Drainage of Peritoneal Cavity, Percutaneous Approach (ICD-10-PCS; principal; 2018-01-26)
DX: R18.8 Other ascites (principal)

== ENCOUNTER → 2018-02-02 | Outpatient (CLI) | payer OTHER | LOC: FIMAGING 12:16 | PROVIDERS: ATTEND Family Medicine | PROC: 0W9F3ZZ Drainage of Abdominal Wall, Percutaneous Approach (ICD-10-PCS; principal; 2018-02-02) | DX: R18.8 Other ascites (principal); C53.9 Malignant neoplasm of cervix uteri, unspecified; M54.9 Dorsalgia, unspecified ==

== ENCOUNTER → 2018-02-08 | Outpatient (CLI) | payer OTHER | LOC: FIMAGING 14:15 | PROVIDERS: ATTEND Family Medicine | PROC: 0W9G30Z Drainage of Peritoneal Cavity with Drainage Device, Percutaneous Approach (ICD-10-PCS; principal; 2018-02-08) | DX: K56.609 Unspecified intestinal obstruction, unspecified as to partial versus complete obstruction (principal); R18.8 Other ascites ==

== ENCOUNTER → 2018-02-17 | Outpatient (CLI) | payer OTHER | LOC: FIMAGING 12:34 | PROVIDERS: ATTEND Family Medicine | DX: R18.8 Other ascites (principal); C53.9 Malignant neoplasm of cervix uteri, unspecified; M54.9 Dorsalgia, unspecified ==

== ENCOUNTER 2018-02-21 11:37 | Inpatient (IN) | payer OTHER ==
--- NOTE | 2018-02-21 11:54 | EDPHY ---
H & P Time Seen by Provider: 02/21/18 11:52 HPI/ROS: CHIEF COMPLAINT: Dizziness and short of breath HISTORY OF PRESENT ILLNESS: 67-year-old man has a history of aspiration pneumonia and metastatic cervical cancer. Started feeling more dizzy and short of breath over the last 2 days, had hypotension and was blue in the face per her visiting nurse today at home. Associated with increased oxygen requirement above her baseline 2 and 0.5 L, she is on 4 L in the emergency department. She started coughing last night and today without sputum production. She feels more short of breath and dizziness as lightheadedness. Symptoms moderate to severe. Worse with exertion. REVIEW OF SYSTEMS: Eye: no change in vision ENT: no sore throat Cardiac: no chest pain or syncope Pulmonary: HPI Abdomen: She does continue to have intermittent vomiting, abdominal symptoms are otherwise stable. Musculoskeletal: no back pain Skin: no rash Neuro: no headache Constitutional: no fever : no urinary symptoms A comprehensive 10 point review of systems is otherwise negative aside from elements mentioned in the history of present illness. PAST MEDICAL HISTORY: Includes metastatic cervical cancer with recurrent small- bowel obstruction and known ascites. Social history: Nonsmoker General Appearance: Alert and conversant, cooperative. Eyes: No scleral icterus. ENT, Mouth: Normal mucous membranes. Respiratory: Decreased breath sounds bilaterally, with increased respiratory work of breathing on nasal cannula oxygen. Cardiovascular: Regular rate and rhythm. Gastrointestinal: Abdomen is soft and non tender. Mildly distended but no peritoneal signs. Neurological: Alert, face symmetric, normal motor and sensory in extremities. Skin: Warm and dry, no rashes. Musculoskeletal: Thin, no edema. Psychiatric: Not agitated. Emergency Department course/MDM: Triage vital signs notable for heart rate of 1 weight with blood pressure 77/59 with O2 sat 90%, afebrile. Initial normal saline bolus, chest x-ray and screening sepsis labs, D-dimer is the patient is at risk for pulmonary embolism with her cancer. 1300: Labs reviewed, likely pneumonia which should be treated as possible healthcare acquired with recent admission, lactate elevated 5.8 indicative of septic shock with initial hypotension. 30 mL/kg fluid bolus, broad-spectrum antibiotics cefepime 2 g, supplemental oxygen, CT angio chest with elevated D-dimer and history of metastatic cancer. Admission ICU for treatment. Patient refused CT scan. Aware that I am unable to diagnose venous thromboembolism without this test, she is at risk with elevated D-dimer, treatment would be different and missing diagnosis potentially life-threatening. Systolic blood pressure greater than 90 after IV fluids. Did not require pressures in the ER. Smoking Status: Never smoked Constitutional: Initial Vital Signs Temperature (C) 36.6 C 02/21/18 11:42 Heart Rate 108 H 02/21/18 11:42 Respiratory Rate 18 02/21/18 11:42 Blood Pressure 77/59 L 02/21/18 11:42 O2 Sat (%) 90 L 02/21/18 11:42 O2 Delivery Mode Nasal Cannula O2 (L/minute) 4 Allergies/Adverse Reactions: Sulfa (Sulfonamide Antibiotics) Allergy (Severe, Verified 01/15/18 08:48) Rash cisplatin Allergy (Unknown, Verified 01/15/18 08:48) Rash Home Medications: Medication Instructions Recorded Herbals/Supplements -Info Only 1 ea PO DAILY 09/23/17 Compounded Progesterone Cream 1 leighton TP HS 01/15/18 300mg/Ml Medical Decision Making - Diagnostics EKG Interpretation: 12-lead EKG interpreted by me; official reading is in computer system. My interpretation is sinus rhythm rate 105 with abnormal diffuse T-waves. Imaging Results: Imaging Impressions Chest X-Ray 02/21/18 12:03 Impression: New multifocal airspace consolidation. Differential diagnosis includes bronchopneumonia, aspiration with reactive edema/pneumonitis and fluid overload. Imaging: I viewed and interpreted images myself Consult/Admit Bed Type: [place] [id number] Critical Care Time: Critical care time spent by me, Dr. Martel, exclusively with the care of this patient was 40 minutes, exclusive of PA or BLOW TORCH BURNER time and exclusive of separate procedures. The organ system at risk was infectious and pulmonary and I ordered multiple diagnostics, supplemental oxygen, IV fluids and antibiotics to stabilize the patient and prevent worsening of the patient's condition. - Data Points Laboratory Results: Laboratory Results 02/21/18 12:10 02/21/18 12:10 02/21/18 02/21/18 02/21/18 12:10 12:10 12:10 WBC 3.32 10^3/uL L 10^3/uL (3.80-9.50) RBC 2.93 10^6/uL L 10^6/uL (4.18-5.33) Hgb 8.7 g/dL L g/dL (12.6-16.3) Hct 26.8 % L % (38.0-47.0) MCV 91.5 fL fL (81.5-99.8) MCH 29.7 pg pg (27.9-34.1) MCHC 32.5 g/dL g/dL (32.4-36.7) RDW 15.5 % H % (11.5-15.2) Plt Count 151 10^3/uL 10^3/uL (150-400) MPV 11.4 fL fL (8.7-11.7) Neut % (Auto) Not Reported Lymph % (Auto) Not Reported [place] % (Auto) Not Reported Eos % (Auto) Not Reported Baso % (Auto) Not Reported Nucleat RBC Rel Count Not Reported Absolute Neuts (auto) Not Reported Absolute Lymphs (auto) Not Reported Absolute Monos (auto) Not Reported Absolute Eos (auto) Not Reported Absolute Basos (auto) Not Reported Absolute Nucleated RBC Not Reported Immature Gran % Not Reported Seg Neutrophils % 72.9 % % Band Neutrophils % 22.9 % % Lymphocytes % 4.2 % % Monocytes % 0.0 % % Eosinophils % 0.0 % % Basophils % 0.0 % % Metamyelocytes % 0.0 % % Myelocytes % 0.0 % % Promyelocytes % 0.0 % % Blast Cells % 0.0 % % Immature Gran # Not Reported Absolute Seg Neuts 2.42 10^/uL 10^/uL (1.70-6.50) Absolute Band Neuts 0.76 10^3/uL H 10^3/uL (0.00-0.70) Absolute Lymphocytes 0.14 10^3/uL L 10^3/uL (1.00-3.00) Absolute Monocytes 0.00 10^3/uL L 10^3/uL (0.30-0.80) Absolute Eosinophils 0.00 10^3/uL L 10^3/uL (0.03-0.40) Absolute Basophils 0.00 10^3/uL L 10^3/uL (0.02-0.10) Absolute Metamyelocyte 0.00 10^3/mL 10^3/mL (0.00-0.00) Absolute Myelocytes 0.00 10^3/mL 10^3/mL (0.00-0.00) Absolute Promyelocytes 0.00 10^3/uL 10^3/uL (0.00-0.00) Absolute Plasma Cells 0.00 10^3/uL 10^3/uL (0.00-0.00) Nucleated RBCs 0 /100 WBC /100 WBC (0-0) Absolute Blast Cells 0.00 10^3/uL 10^3/uL (0.00-0.00) Plasma Cells % 0.0 % % Platelet Estimate ADEQUATE (ADEQ) PT 14.2 SEC SEC (12.0-15.0) INR 1.08 (0.83-1.16) APTT 31.9 SEC SEC (23.0-38.0) D-Dimer 3.79 ug/mLFEU H ug/mLFEU (0.00-0.50) VBG Lactic Acid Sodium 139 mEq/L mEq/L (135-145) Potassium 3.7 mEq/L mEq/L (3.3-5.0) Chloride 102 mEq/L mEq/L (97-110) Carbon Dioxide 22 mEq/l mEq/l (22-31) Anion Gap 15 mEq/L mEq/L (8-16) BUN 33 mg/dL H mg/dL (7-23) Creatinine 0.4 mg/dL L mg/dL (0.6-1.0) Estimated GFR > 60 Glucose 104 mg/dL H mg/dL (70-100) Calcium 8.8 mg/dL mg/dL (8.5-10.4) Total Bilirubin 0.5 mg/dL mg/dL (0.1-1.4) 02/21/18 12:10 WBC RBC Hgb Hct MCV MCH MCHC RDW Plt Count MPV Neut % (Auto) Lymph % (Auto) [place] % (Auto) Eos % (Auto) Baso % (Auto) Nucleat RBC Rel Count Absolute Neuts (auto) Absolute Lymphs (auto) Absolute Monos (auto) Absolute Eos (auto) Absolute Basos (auto) Absolute Nucleated RBC Immature Gran % Seg Neutrophils % Band Neutrophils % Lymphocytes % Monocytes % Eosinophils % Basophils % Metamyelocytes % Myelocytes % Promyelocytes % Blast Cells % Immature Gran # Absolute Seg Neuts Absolute Band Neuts Absolute Lymphocytes Absolute Monocytes Absolute Eosinophils Absolute Basophils Absolute Metamyelocyte Absolute Myelocytes Absolute Promyelocytes Absolute Plasma Cells Nucleated RBCs Absolute Blast Cells Plasma Cells % Platelet Estimate PT INR APTT D-Dimer VBG Lactic Acid 5.8 mmol/L H mmol/L (0.7-2.1) Sodium Potassium Chloride Carbon Dioxide Anion Gap BUN Creatinine Estimated GFR Glucose Calcium Total Bilirubin Medications Given: Discontinued Medications Sodium Chloride (Ns) 1,000 mls @ 2,000 mls/hr 30 ml/kg infuse over 30 min ( 1000 ml) IV EDNOW ONE PRN Reason: Protocol Stop: 02/21/18 12:32 Last Admin: 02/21/18 12:28 Dose: Not Given Sodium Chloride (Ns) 1,000 mls @ 0 mls/hr IV EDNOW ONE; Wide Open PRN Reason: Protocol Stop: 02/21/18 12:28 Last Admin: 02/21/18 12:30 Dose: 1,000 mls Cefepime HCl 2 gm/ Sodium (Chloride) 100 mls @ 200 mls/hr IV EDNOW ONE PRN Reason: Protocol Stop: 02/21/18 13:11 Last Admin: 02/21/18 14:25 Dose: 100 mls Departure - Departure Disposition: [facility] Inpatient Acute Clinical Impression: Pneumonia Qualifiers: Pneumonia type: due to unspecified organism Laterality: bilateral Lung location : unspecified part of lung Qualified Code(s): J18.9 - Pneumonia, unspecified organism Condition: Serious
[2018-02-21] MEDS ORDERED: NS 1,000 ML IV ONE ×3 (12:03→16:06)
[2018-02-21 12:24] LABS: PLATELET COUNT 151 10^3/uL (150-400)
--- NOTE | 2018-02-21 12:26 | CPEKG ---
Test Reason : OPEN Blood Pressure : / mmHG Vent. Rate : 105 BPM Atrial Rate : 106 BPM P-R Int : 109 ms QRS Dur : 082 ms QT Int : 486 ms P-R-T Axes : 038 -20 -78 degrees QTc Int : 643 ms Sinus tachycardia Borderline left axis deviation Abnrm T, consider ischemia, anterolateral lds Prolonged QT interval Confirmed by Sterling Martel ([id number]) on 02/21/2018 12:25:44 PM Referred By: Confirmed By:Sterling Martel
[2018-02-21 12:31] LABS: INR 1.08 (0.83-1.16); PROTIME(PATIENT) 14.2 SEC (12.0-15.0)
[2018-02-21] MEDS ORDERED: CEFEPIME HCL 2 GM in NS 100 ML IV ONE (12:42)
--- NOTE | 2018-02-21 13:34 | PDGENHP ---
History and Physical History and Physical: CC: Nonproductive cough, shortness of breath, lightheadedness HISTORY: This patient comes into the ER complaining of cough, lightheadedness and dizziness, and shortness of breath occurring over 2 days or more. She denies chest pain but did have some shivering spells; denies any leg pain or swelling notably she did start vomiting yesterday and had quite a bit of vomiting today. There is no abdominal pain over the past couple of weeks but she has had worsening abdominal pain and distension in the past 2 weeks and almost no bowel movement. She has history of metastatic cervical cancer with bowel obstruction and prior aspiration pneumonias. Apparently she has a home nurse who was noticing her to be blue in the face and had measured low blood pressure. She was last discharged here on January 17 when she had presented with shortness of breath tachycardia and found to have pneumonia which was presumed aspiration pneumonia. She responded symptom angel to antibiotics at that time, though tells me that her strength and respirations never completely recovered all the way to baseline. Her cough did improve quite a bit. Note that regarding the patient's cancer treatments, she has declined in the past all recommendations for standard oncologic doses of chemotherapy and declined an offer for nolivumab therapy. She has taken some chemotherapy at apparently "low doses" at a clinic in [place] and has had other alternative treatments at clinics here in the [facility]. She has had bowel obstruction symptoms ongoing since approximately August or September of this year. She has had ongoing ascites of malignancy, requiring frequent paracenteses initially weekly but over the last month it has decreased every 7-10 days. She has been on TPN for the last several months at home on a daily basis. Is been recommended to her that she stay NPO but she has preferred to continue to try and eat when she is feeling well enough and when it seems to be working. She states that when she was here in the middle of December with an episode of abdominal discomfort she had a CT scan, and says that she thinks the oral contrast for that CT of the abdomen made things worse with her bowel obstruction. She tells me that in the last week she has had more trouble with any swallowing of food or fluids has stopped having bowel movements. In the last 2 days she started having increasing distension and pain in her abdomen and vomiting started yesterday. ROS: A comprehensive 10 system review revealed no other significant findings PAST MEDICAL HISTORY: Cervical cancer, stage IV complicated by pleural and ascitic fluid collections and bowel obstruction and ureteral obstruction; status post debulking surgery and hysterectomy, adenoidectomy and tonsillectomy Aspiration pneumonia 1 month ago Multiple thoracenteses Multiple paracenteses Protein calorie malnutrition, ongoing TPN at home Compression fractures of the spine Pneumothorax after thoracentesis FAMILY MEDICAL HISTORY: Multiple cancers of various origins in multiple family members SOCIAL HISTORY: Partner did with [facility] Has had full cor orders in the past here No use of tobacco or alcohol Uses some medical marijuana for pain management MEDICATIONS: The patients list has been reconciled by our clinical pharmacist in the EMR. I have reviewed the list and ordered appropriate medicines. PHYSICAL EXAMINATION: Vital Signs: Initial blood pressure 77/59, pulse 108, no fever, requiring 4 L nasal cannula oxygen Tobacco Wrapping Machine Tender: Examination: General: alert, oriented, some mild respiratory distress at this time, and looks somewhat uncomfortable Skin: warm, dry centrally but capillary refill slightly decreased at fingertips ; overall pale skin HEENT: normal Neck: no mass or jvd Resps: relaxed Lungs: Diminished breath sounds with some egophony at both bases posteriorly Heart: regular, no murmur Abdomen: soft, mildly distended, with mild diffuse tenderness, +BS, no mass palpable Upper Extremities: PICC catheter and right arm with no evidence of inflammation swelling or phlebitis Lower Extremities: no edema No Bleeding or bruising Neurologic: normal speech/language, normal community outreach specialist, generalized weakness IV site: looks normal LABORATORY DATA: White blood cell count low with 2400 neutrophils Hemoglobin at 8.7 which is not far from her baseline number though may decrease with hydration D-dimer elevated at 3.8 Lactic acid at 5.8, on chemistry BUN is high at 33 RADIOLOGY STUDIES: Chest x-ray done in the ER, I reviewed the images with Dr. Fantasma Arce. There are dense bilateral lower lung infiltrates with air bronchograms. I reviewed this and compared with a CT scan of the chest done on January 15 when she presented with shortness of breath and tachycardia. At that time on the CT scan images I see diffuse bilateral lung infiltrate of disease that is dense somewhat patchy in with air bronchograms. I have also compared to a chest x- ray from September of this year at which time none of the infiltrates were present in either lung. Comparing the January 15 CT scan with today's chest x-ray as best I can read the infiltrates appear approximately equivalent in terms of extent and severity. 12 LEAD EKG: I reviewed the tracing from today in the ER, and there is a sinus tachycardia with some ST and T-wave inversion in multiple leads of uncertain etiology; QRSs are normal. There is no comparison EKG going back to 2008 ASSESSMENT: * acute hypotension and respiratory failure with tachycardia, suspect acute sepsis but other causes possible * suspect acute bilateral pneumonitis with hypoxemic respiratory failure, likely from aspiration, but unclear if her chest infiltrates radiologically ever resolved or improved after her episode in December * pulmonary embolism is suspected as a possible cause of her presenting illness as well * acute hypoxemic respiratory failure * neutropenia from can cancer and perhaps sepsis * EKG abnormalities with ST and T-wave changes uncertain etiology, unknown chronicity * anemia of malignancy and malnutrition * ongoing issues with small bowel obstruction from peritoneal metastases, on chronic TPN 12 hr a day at home. * ongoing recurrent ascites of malignancy has been requiring paracentesis every 7-10 days, last done 4 days ago I reviewed all the above with the patient and her family at the bedside in detail today. At this point the patient requests aggressive medical care for her acute and chronic illnesses, as well as full cor. I did discuss with her that with suspicion of possible PE we would recommend a CT scan of the chest to assess that, though she had declined having the CT scan done when she was in the ER. I reviewed that it did not make clinical sense to do a resuscitation effort after she from an illness such as PE that we did not make any efforts to diagnose or treat or prevent. She agreed with this logic in at this time is agreeing to having a CT scan of chest with contrast. PLANS: * Admission to ICU, inpatient * Stat CT scan of chest to rule out PE and to assess for possible pulmonary metastases * Continue IV antibiotics as appropriate for aspiration pneumonitis * Continue sepsis protocols with ongoing IV resuscitation by protocol followed by IV hydration thereafter * Recheck lactate and other labs after further resuscitation efforts * At this time there does not appear to be an indication likely for pressors * DVT prophylaxis is ordered but this may be changed to treatment dose if she has PE * NPO including medicines * Follow white blood cell count closely * Consider imaging of the abdomen including x-ray and/or ultrasound to assess bowel distension and ascites volume depending on her progress here; if she remains here long enough will need further paracentesis * Full cor per the patient's wishes; she and her family understand that given her overall health status and her list of medical issues, her likelihood of surviving efforts at resuscitation to leave the hospital alive after arresting despite ongoing aggressive medical care would be minimal I have reviewed the patient's case in detail with Dr. Fantasma Arce I have reviewed the patient's past medical records as part of this assessment, including previous hospital admission records
--- NOTE | 2018-02-21 16:09 | PDMN ---
Medical Necessity Medical necessity: MCG: M160 sepsis and other febrile illness A -3 days: pt presents with dizziness, SOB, cough, lightheadedness acute septic shock, initial BP 77/59, HR 108, 4 L O2, acute bilateral pneumonitis with hypoxemic resp failure, lactic acid 5.8 elevated D-dimer 3.79, neutropenia , EKG abnormalities, anemia, pt with hx of met. Ca, anticipate> 2 MN ongoing med nec care, eval and tx.
[2018-02-21] MEDS ORDERED: ONDANSETRON 4 MG/2 ML VIAL IVP PRN (16:11)
[2018-02-21] MEDS ORDERED: IOPAMIDOL (ISOVUE 370) 100 ML BTL IV ONE (16:14)
[2018-02-21] MEDS: NS 1,000 ML IV SCH (16:17)
[2018-02-21] MEDS: AZITHROMYCIN IV 500 MG in NS 250 ML IV SCH (17:16)
--- NOTE | 2018-02-21 18:56 | GCON ---
PULMONARY/CRITICAL CARE CONSULTATION DATE OF CONSULTATION: 02/21/2018 REASON FOR CONSULTATION: Dyspnea, hypoxemia, hypotension, with bilateral pulmonary infiltrates sugge stive of possible pneumonia in a patient with known metastatic cervical cancer. HISTORY: The patient is a 67-year-old, who was brought to the emergency department by the paramedics . Her significant other called 911. She was lightheaded and hypoxemic at home. She has a history o f metastatic colon cancer and recent small-bowel obstructions. Over the last number of days, she has been increasingly weak and short of breath. She had recurrent nausea and vomiting starting yesterda y, perhaps the day before. In the emergency department, she was afebrile and tachycardic. Blood pressure was approximately 80/6 0. On 4 L of oxygen, saturations were 90%. Her usual baseline oxygen requirements are 2.5 L. She w as given 1 L of saline. D-dimer was positive. She refused CT angiogram. Chest x-ray showed bilater al areas of consolidation. She was felt to have probable pneumonia and given cefepime. She was followed for her cancer by Oncology previously. She has not seen Oncology in the past, but h as sought alternative treatments. She is currently seeing a homeopathic practitioner, who has been p rescribing various tinctures. She was last hospitalized about a month ago. She has required intermi ttent paracenteses for metastatic fluid in her abdomen. She has also had a thoracentesis, which docu mented cancer there. Previous CT scan of the chest showed bilateral pulmonary infiltrates, some of t he nodular suggesting a possibility of tumor involvement of the lungs. Following her admission to the intensive care unit, she has agreed to a CT angiogram of the chest to rule out the possibility of pulmonary embolic disease. PAST MEDICAL HISTORY: Remarkable for her metastatic cervical cancer and associated bowel obstruction s. She also has ureteral obstruction. There is a history of debulking surgery and hysterectomy, par acenteses and thoracenteses in the past. When she was here about a month ago, she had presumed aspir ation pneumonia. SOCIAL HISTORY: She has a very supportive partner. Tobacco and alcohol are negative. She does use medical marijuana for pain control. She is full core per her advance directives and current wishes. FAMILY HISTORY: Positive for cancer. REVIEW OF SYSTEMS: A 10-point review of systems are negative except as noted above. PHYSICAL EXAMINATION: GENERAL: Reveals a chronically ill-appearing woman, who is cachectic. She is lying in bed and appears relatively comfortable. VITAL SIGNS: On 4 L of oxygen, saturations are 91 %. Current blood pressure is approximately 100/70. She is not on pressors. She is afebrile. Respi ratory rate is 18. HEENT: Unremarkable for lymphadenopathy or thyromegaly. A nasal cannula with co nserving device is in place. There is no obvious jugular venous distention. Mucous membranes are so mewhat dry. PULMONARY: The chest reveals decreased breath sounds bilaterally. Egophony is present on the right at the base, not the left. A few scattered rales are noted. There are no rhonchi. The re are no wheezes. HEART: Tachycardic. Heart tones are somewhat distant. There is a soft systolic murmur, no obvious gallop. ABDOMEN: Firm and mildly tender. Bowel sounds are diminished. EXTREMI TIES: Unremarkable for edema, cords, or tenderness. : No Mayorga catheter is in place. DATABASE: CTA: Pending. Chest x-ray: Bilateral infiltrates as noted above. EKG: Nonspecific ST-T wave changes present with underlying sinus tachycardia. Same section. Laboratory: White blood cell count is 3300, hematocrit 26.8. Platelets are 150,000. PT and PTT are normal. On admission, D-dimer elevated at 3.8. Initial lactate is 5.8 and on repeat 2 hours later 5.2. MVO2 is 96. Basic metabolic panel is within normal limits with the exception of a BUN of 33. Blood cultures: Pending. ASSESSMENT: 1. Hypotension with elevated lactate. Sepsis is present. She is receiving intravenous fluids, and at this point is not requiring pressor or therapy. She is on the sepsis protocol. She has received antibiotics and is continuing on ceftriaxone and azithromycin. Blood cultures are pending. She has no sputum at this point in time. She does have bilateral pulmonary infiltrates. She certainly may h ave pneumonia and is at risk for pneumonia, including aspiration pneumonia. However, she has little in the way of cough and mucus. Alternatively or associated with her pneumonia is a relatively high p robability of pulmonary metastatic disease. This will be re-evaluated with the CT angiogram. 2. Metastatic ovarian cancer. 3. History of small bowel obstruction, with nausea and vomiting yesterday. 4. History of malignant ascites, as well as pleural effusions. 5. Leukopenia and anemia. Probably secondary to underlying cancer. She has not received chemothera py recently. 6. Metabolic: No issues currently identified. 7. Prophylaxis: She will be started on enoxaparin and famotidine. PLAN AND RECOMMENDATIONS: The patient will be kept in the intensive care unit. Intravenous fluids p er the sepsis protocol will be continued until she reaches goal. Blood pressure will be followed. I f hypotension becomes an issue, Levophed will be added. Current medications will be continued. Anti biotics may need to be adjusted as cefepime does not cover anaerobic organisms well. Cultures will b e awaited. Laboratory and x-ray will be followed. DuoNeb will be added to her regimen. Further plans and recommendations will be made based on her progress over the next 12-24 hours. /[id number]/MODL
[2018-02-21] MEDS: FAMOTIDINE 20 MG/NACL 50 ML IV SCH (19:17)
[2018-02-21] MEDS: TPN IV SCH (20:08)
[2018-02-21] MEDS: PROGESTERONE TP SCH (20:08)
[2018-02-22 05:36] LABS: PLATELET COUNT 143 10^3/uL (150-400)
[2018-02-22] MEDS ORDERED: POTASSIUM Cl (KCl) 50 ML IV ONE (06:44)
[2018-02-22] MEDS ORDERED: Herbals/Supplements -Info Only PO SCH (09:00)
[2018-02-22] MEDS: AZITHROMYCIN IV 500 MG in NS 250 ML IV SCH (09:19)
[2018-02-22] MEDS: FAMOTIDINE 20 MG/NACL 50 ML IV SCH ×2 (09:19→21:30)
[2018-02-22] MEDS: ENOXAPARIN 40 MG/0.4 ML SYR SC SCH (09:19)
--- NOTE | 2018-02-22 15:06 | PDINTPN ---
[employer] [facility] Progress Note Assessment/Plan: Assessment: Widely metastatic ovarian cancer. Likely metastatic pulmonary disease. A biopsy would be needed to prove this. Not indicated at this time. 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 Pneumonia. Possibly aspiration. Doing well, feels better. Oxygen requirements at baseline. Not coughing up any purulent mucus at this point. Doing well. On ceftriaxone and azithromycin: If cultures remain negative can switch to IV Levaquin once a day. No sputum culture could be obtained. Blood cultures negative so far. Advance directives: Discussed with the patient in one of her caregivers/ friends. Resuscitative efforts would be futile regarding cardiac compressions as well as intubation/mechanical ventilation. I strongly recommends that she considers a "no code" status at this time. She seemed to understand the implications of this and will discuss it further with family and friends. Cachexia/failure to thrive. Small-bowel obstruction: Patient was not eating secondary to recurrent nausea and vomiting. She was on TPN at home, and is using her own here. Also on IV medications/antibiotics at home. Prophylaxis: On enoxaparin and famotidine. Anemia: Secondary to cancer/chronic disease. 1 unit PRBCs transfused today. Plan: Continue present antibiotics. Switch to Levaquin tomorrow if cultures negative. Continue other palliative treatments. Follow laboratory/CBC. Follow x-ray intermittently. Can be step-down, possibly transfer to a medical- surgical bed tomorrow. I will continue to address advance directive issues with the patient. 35 min of critical care time spent directly with the patient today. Discussed with hospitalist, nursing, and the ICU multi disciplinary team. Subjective: Feels somewhat better, stronger, less short of breath today. Not coughing or bringing up any mucus. Denies chest pain. Objective: Vital Signs Temp Pulse Resp BP Pulse Ox 36.6 C 88 29 H 105/62 98 02/22/18 08:00 02/22/18 14:00 02/22/18 14:00 02/22/18 14:00 02/22/18 14:00 Laboratory Results 02/22/18 05:01 02/22/18 05:01 02/21/18 02/22/18 02/23/18 05:59 05:59 05:59 Intake Total 2388 Output Total 1125 Balance 1263 PT 14.2 SEC (12.0-15.0) 02/21/18 12:10 INR 1.08 (0.83-1.16) 02/21/18 12:10 Laboratory Tests 02/22/18 02/22/18 02/22/18 05:01 05:20 06:20 pCO2 28 L pO2 75 ABG pH 7.42 VBG Lactic Acid 5.9 H Total O2 Concentration 3.0 Calcium 8.2 L Albumin 2.1 L CXR: About the same. Bilateral infiltrates. CT scan of chest yesterday: Bilateral infiltrates persist. Some these likely represent underlying metastatic cancer to the lung. Some likely secondary to aspiration pneumonia/pneumonitis. No evidence of pulmonary embolic disease. Small to moderate pleural effusion present on the right. Physical Exam - Physical Exam General Appearance: alert, no apparent distress, cachetic EENT: PERRL/EOMI, other (Nasal cannula in place at 3 L) Neck: normal inspection (No obvious JVD) Respiratory: lungs clear (Anteriorly), decreased breath sounds (At bases), rales (Scattered rales present at the bases), No rhonchi, No wheezing Cardiac/Chest: regular rate, rhythm, No gallop Abdomen: distended, No normal bowel sounds (Decreased), No non-tender (Mildly tender) Pelvic Exam: other (No Mayorga catheter in place) Skin: warm/dry, pallor Extremities: No pedal edema Neuro/Psych: no motor/sensory deficits (Moves all extremities weakly), No cognition abnormalities ICD10 Worksheet Patient Problems: Problems Problem Status Onset SBO (small bowel obstruction) Acute Ascites Acute Nausea and vomiting Acute Ascites, malignant Acute Cervical cancer Acute Intractable generalized abdominal pain Acute Partial small bowel obstruction Acute Abdominal pain Acute Hyponatremia Acute Obstruction of right ureter Acute Pneumonia Acute
--- NOTE | 2018-02-22 16:21 | ASMTCMCOM ---
CM Note CM Note Notes: 67yr old female admitted for PNA, Stage IV Cervical CA, Mets, Bowel and ureteral OBS, Malnutrition,,Chronic TPN, Compression fxs. Patient has come to the ER 10x since July and continues to want to be Full [facility]. Palliative has also worked with her numerous times. PT recommending HC-PT. She has worked with [facility] and would like to work with them again. Notified [facility] and sent a referral. Date Signed: 02/22/2018 04:20 PM Electronically Signed By:Marina Magdaleno LCSW
[2018-02-22] MEDS: NS 1,000 ML IV SCH (17:33)
--- NOTE | 2018-02-22 18:08 | HOSPPROG ---
Hospitalist Progress Note Assessment/Plan: DIAGNOSES: * acute sepsis with hypotension and respiratory failure * acute hypoxemic respiratory failure, likely from aspiration or possibly postobstructive pneumonia * pulmonary embolism is ruled out * suspicion for progress of metastatic cancer with lung metastases based on her CT scan * neutropenia likely from sepsis has resolved * EKG abnormalities with ST and T-wave changes uncertain etiology, unknown chronicity - no evidence of heart failure angina or ischemia otherwise, consider possibly stress ischemia of her acute hypotension and sepsis * anemia of malignancy and malnutrition * Worsened today requiring transfusion, no evidence of bleeding * ongoing issues with small bowel obstruction from peritoneal metastases, on chronic TPN 12 hr a day at home. * ongoing recurrent ascites of malignancy has been requiring paracentesis every 7-10 days, last done 4 days ago Seen by me today on hospitals rounds as well as at interdisciplinary ICU rounds Reviewed in detail with Dr. Fantasma Arce I reviewed the results of the patient CT scan in all of her her other tests here so far with her in detail and answered the questions have her self and her friends. The patient is resolving nicely from her severe acute illness as presented yesterday. However she does have ongoing issues with bowel obstruction and probably recurrent aspiration as she was having vomiting at home. In addition she has potential for postobstructive pneumonia and appears to likely have new lung mets from her original cancer. We have discussed with her at length the fact that ongoing oral intake will very likely lead to recurrent episodes of this type of illness requiring frequent hospitalizations which she does not like. These episodes also could potentially lead to a cardiac or respiratory arrest. It is been described to her that we do not feel that it makes sense to be doing cardiac and pulmonary resuscitation after rest caused by an illness that she is not taking measures to prevent by continuing to eat and drink. So far she seems to and states to understand what we are describing to her, but she is not willing to change to a DNR request nor she willing to stop eating and drinking at home. Despite hearing that we see what we believe are new metastatic lesions in her lungs, she still states that she thinks she can continue treating her illness by starting some new "immune" therapy through her alternative practice physician. PLANS: * Continue current empiric antibiotics * Continue current respiratory care * Continue IV hydration * Transfuse 1 unit of red blood cells today * Recheck hemoglobin to make sure it is not continuing to fall * Continue her overnight TPN * Continue NPO here * Continue to recommend to her NPO at home SUBJECTIVE: Feels better today, stronger, less short of breath, more alert No chills or sweats OBJECTIVE Vitals reviewed: Still with somewhat soft blood pressures but there are notably better and her pulse is much better, respirations now looks very relaxed on her normal rate, no fever Farm Machine Tender, my review: Sinus Exam: alert oriented looks much more relaxed today skin warm dry color ok resps not labored lungs clear BSs, diminished breath sounds with egophony at both bases heart regular abd soft nondistended nontender, bowel sounds present limbs warm, no edema iv site ok Laboratory data: Stable chemistry panels White blood cell count now up to 13,000 Hemoglobin has decreased to 6, platelets stable Microbiology data: Blood cultures negative to date Objective: Vital Signs Temp Pulse Resp BP Pulse Ox 36.6 C 84 19 97/66 L 94 02/22/18 08:00 02/22/18 16:00 02/22/18 16:00 02/22/18 16:00 02/22/18 16:00 Laboratory Results 02/22/18 05:01 02/22/18 05:01 02/21/18 02/22/18 02/23/18 06:59 06:59 06:59 Intake Total 2388 1136 Output Total 1125 1200 Balance 1263 -64 PT 14.2 SEC (12.0-15.0) 02/21/18 12:10 INR 1.08 (0.83-1.16) 02/21/18 12:10 - Time Spent With Patient Time Spent with Patient: greater than 35 minutes Time Spent with Patient: Greater than 35 minutes spent on this patients care, greater than 50% of time spent counseling, educating, and coordinating care regarding the above mentioned plan. ICD10 Worksheet Patient Problems: Problems Problem Status Onset Pneumonia Acute Abdominal pain Acute Ascites Acute Ascites, malignant Acute Cervical cancer Acute Hyponatremia Acute Intractable generalized abdominal pain Acute Nausea and vomiting Acute Obstruction of right ureter Acute Partial small bowel obstruction Acute SBO (small bowel obstruction) Acute
[2018-02-22] MEDS: TPN IV SCH (20:02)
[2018-02-22] MEDS: PROGESTERONE TP SCH (20:03)
[2018-02-23] MEDS: AZITHROMYCIN IV 500 MG in NS 250 ML IV SCH (08:07)
[2018-02-23] MEDS: FAMOTIDINE 20 MG/NACL 50 ML IV SCH ×2 (08:07→20:06)
[2018-02-23] MEDS: ENOXAPARIN 40 MG/0.4 ML SYR SC SCH (08:07)
[2018-02-23] MEDS ORDERED: NOREPINEPHRINE BITARTRATE 4 MG in NS 500 ML IV SCH (10:30)
--- NOTE | 2018-02-23 10:34 | ECHO ---
[email or web address] [address] [address] Main: [phone] Fax: Transthoracic Echocardiogram Name: ARNEL CHAU MR#: [id number] Study Date: 02/23/2018 Study Time: 09:41 AM Date of : 1950 Age: 67 year(s) Height: 154.9 cm (61 in.) Weight: 33.57 kg (74 lb.) BSA: 1.24 m2 Gender: Female Examination: Echo Indication: Acute hypotension, EKG abnormality, Metastatic CA, question pericardial efffusion Image Quality: Contrast: Requested by: Paul Dawkins BP: 88 mmHg/60 mmHg Heart Rate: Rhythm: Indication: Acute hypotension, EKG abnormality, Metastatic CA, question pericardial efffusion Procedure Staff Director Of Architecture: Svetlana Jacobo RD Reading Physician: Justin Hood MD Requesting Provider: Paul Dawkins Conclusions: Normal size left ventricle. Normal global systolic LV function. The ejection fraction is estimated to be 70-75 %. Mildly dilated right ventricle. The right atrium is mildly to moderately dilated. The mitral valve is normal in appearance and function. Trivial mitral valve regurgitation. The aortic valve is normal in appearance and function. The aortic valve is tri-leaflet. There is no aortic valve regurgitation. RVSP is 41mmHG.. No pericardial effusion. No old studies for comparison. Measurements: Chambers Valvular Assessment AV/MV Valvular Assessment TV/PV Normal Normal Normal Name Value Range Name Value Range Name Value Range Ao Jessie (MM): 3.0 cm (2.2 cm-3.7 AV Vmax: 1.10 m/s (1 m/s-1.7 TR Vmax: 3.02 mm/s ( - ) cm) m/s) TR PGmax: 36 mmHg ( - ) IVSd (2D): 1.0 cm (0.6 cm-1.1 AV meanP mmHg ( - ) syst. PAP: 41 mmHg ( - ) cm) MV E Vmax: 0.64 m/s ( - ) LVDd (2D): 3.4 cm (3.9 cm-5.3 MV A Vmax: 0.82 m/s ( - ) cm) MV E/A: 0.78 ( - ) LVDs (2D): 2.1 cm (2.1 cm-4 cm) LVPWd (2D): 0.8 cm ( - ) LVEF (BP): 76 % (>=55 %) EF Range: 70-75 % Patient: ARNEL CHAU Study Date: 02/23/2018 Page 1 of 2 09:41 AM Continued Measurements: Chambers Valvular Assessment AV/MV Valvular Assessment TV/PV Name Value Name Value Name Value LADs: 2.2 cm MV E' Septal: 0.07 m/s CVP (est.): 5 mmHg LADs Lon.6 cm MV E/E' Septal: 9.80 LA Area: 17.1 cm2 MV E/E' Lateral: 9.00 Additional Vessels Name Value Ao Ascendin.3 cm Findings: Left Ventricle: Normal size left ventricle. Normal global systolic LV function. The ejection fraction is estimated to be 70-75 %. No regional wall motion abnormality. Diastolic function indeterminate. E/a wave reversal.. Right Ventricle: Mildly dilated right ventricle. Left Atrium: The left atrium is normal in size. Right Atrium: The right atrium is mildly to moderately dilated. Mitral Valve: The mitral valve is normal in appearance and function. Trivial mitral valve regurgitation. Aortic Valve: The aortic valve is normal in appearance and function. The aortic valve is tri-leaflet. There is no aortic valve regurgitation. Tricuspid Valve: The tricuspid valve is normal in appearance and function. Moderate tricuspid regurgitation is present. RVSP is 41mmHG.. Pulmonic Valve: The pulmonic valve is normal in appearance and function. Trivial pulmonic valve regurgitation. Aorta: The aorta is normal. Pericardium: No pericardial effusion. Left side pleural effusion. (No Signature Object) Patient: ARNEL CHAU Study Date: 02/23/2018 Page 2 of 2 09:41 AM [id number]
--- NOTE | 2018-02-23 10:50 | HOSPPROG ---
Hospitalist Progress Note Assessment/Plan: DIAGNOSES: * acute change in status today with new severe hypotension along with worsening respiratory failure and diffuse pulmonary edema * Uncertain etiology of this episode, no evidence of cardiac failure or pericardial disease, no fever cough or chest pain, no sign of bleeding * The blood pressure has responded to pressor support here but she remains with pulmonary edema and worsening hypoxemia through the day * acute sepsis at admission with hypotension and respiratory failure * acute hypoxemic respiratory failure at admission, likely from aspiration or possibly postobstructive pneumonia * pulmonary embolism is ruled out by CT scan * suspicion for progress of metastatic cervical cancer with lung metastases based on her CT scan * neutropenia likely from sepsis has resolved * EKG abnormalities with T-wave inversions uncertain etiology, unknown chronicity, but resolved at this time- * no evidence of heart failure angina or ischemia otherwise, consider possibly stress ischemia from her acute hypotension and sepsis * anemia of malignancy and malnutrition * Worsened here requiring transfusion, no evidence of bleeding * ongoing issues with small bowel obstruction from peritoneal metastases, on chronic TPN 12 hr a day at home. * ongoing recurrent ascites of malignancy has been requiring paracentesis every 7-10 days, last done 4 days ago Seen by me today on hospitals rounds as well as at interdisciplinary ICU rounds Reviewed in detail with Dr. Fantasma Arce The patient has a sudden change today in her status with hypotension and pulmonary edema, without evidence of cardiac dysfunction. This has occurred despite getting blood transfusion yesterday and IV fluids overnight without any evidence of loss of fluids. Uncertain if the pulmonary change represents a leak due to her tumors, an ARDS like picture, or other cause. Either way the prognosis here is certainly somewhat Grim. Dr. Fantasma Arce and I both talked with the patient and her family members as well as some her supporting friends at length today about her change in condition. We have described that this is a condition that may not be very easily treatable and that she may not be able to survive this episode. Any attempts at treating the hypotension with fluids would probably worsen her respiratory status with high likelihood of requiring mechanical ventilation. Any attempts to diurese for the sake of her respiratory status would be dangers with her hypertension. She is told us again that she does not think she would want to be on a mechanical ventilator. We have described that should she have a respiratory or cardiac arrest, if we were to perform resuscitation few would not likely stupor survive it, but if she did she would be on a mechanical ventilator and have quite a bit of pain. It would be very difficult to get her off of the ventilator. She says she understands this and does not think she would want broken ribs or mechanical ventilator, but so far is not willing to agree to having a DNR order placed in her chart. PLANS: * With started a norepinephrine drip which so far is improving her blood pressure but her respiratory status keeps worsening * Continue current empiric antibiotics * Continue current respiratory care * Continue her nocturnal TPN * Continue NPO here * Further ongoing discussions with the care team here with the patient and her surrounding support team regarding her prognosis and care decisions SUBJECTIVE: notably weaker today denies sob, cough, chest pain OBJECTIVE Vitals reviewed: This am has suddenly developed hypotension which is worsening ; no fever, resps not increased, pulse 80s. After discussion with the patient and her partner it was elected to start her on some pressor and her blood pressures are better on a norepinephrine drip. Through the afternoon her respiratory status is changed and she is now on 10 L of oxygen by mask as opposed to previous 3 L of oxygen by nasal cannula Mechanical Artist, my review: Sinus Exam: alert lethargic, not as well oriented, extremely weak without focal weakness skin warm dry color is more ashen today resps somewhat labored lungs diffuse loud rales are new since yesterday heart regular abd soft nondistended nontender, bowel sounds present limbs warm, no edema picc iv site ok stat CXR done this morning I reviewed images which I think are most consistant with marked diffuse pulmonary disease Echocardiogram this am, I reviewed images with Dr. Hood: good ef and valves no WMA, some R heart dilation and mild pulm HTN Microbiology data: Blood cultures negative to date Objective: Vital Signs Temp Pulse Resp BP Pulse Ox 36.0 C 88 20 88/60 L 94 02/23/18 09:00 02/23/18 09:00 02/23/18 08:45 02/23/18 09:00 02/23/18 08:00 Laboratory Results 02/23/18 05:40 02/22/18 05:01 02/22/18 02/23/18 02/24/18 06:59 06:59 06:59 Intake Total 2388 2432 Output Total 1125 2100 Balance 1263 332 PT 14.2 SEC (12.0-15.0) 02/21/18 12:10 INR 1.08 (0.83-1.16) 02/21/18 12:10 - Time Spent With Patient Time Spent with Patient: greater than 35 minutes Time Spent with Patient: Greater than 35 minutes spent on this patients care, greater than 50% of time spent counseling, educating, and coordinating care regarding the above mentioned plan. ICD10 Worksheet Patient Problems: Problems Problem Status Onset Pneumonia Acute Abdominal pain Acute Ascites Acute Ascites, malignant Acute Cervical cancer Acute Hyponatremia Acute Intractable generalized abdominal pain Acute Nausea and vomiting Acute Obstruction of right ureter Acute Partial small bowel obstruction Acute SBO (small bowel obstruction) Acute
--- NOTE | 2018-02-23 12:57 | PDINTPN ---
Game Tester Progress Note Assessment/Plan: Assessment: Widely metastatic ovarian cancer. Likely metastatic pulmonary disease. A biopsy would be needed to prove this. Not indicated at this time. 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 Hypotension: Was hypotensive this morning. On Levophed now. May have aspirated again after vomiting prior to this. Lactate is 2.5, lower. Chest x- ray worse but oxygenation stable. Cardiac echo relatively normal: Normal LV, RVSP at 40. CVP 14 Pneumonia. Probable aspiration. Doing well, feels better. Oxygen requirements at 3L, baseline. Not coughing up any purulent mucus. Doing well. On ceftriaxone and azithromycin: If cultures remain negative can switch to IV Levaquin once a day. No sputum culture could be obtained. Blood cultures negative so far. Advance directives: Discussed with one of her caregivers/friends. Resuscitative efforts would be futile regarding cardiac compressions as well as intubation/mechanical ventilation. I strongly recommends that she considers a "no code" status at this time. This was not discussed with the patient or her significant other today. Dr. Dawikns did discuss issues with them. Yesterday she seemed to understand the implications of not surviving resuscitative efforts, however she was unable to commit to a do not resuscitate status. Cachexia/failure to thrive. Small-bowel obstruction: Patient was not eating secondary to recurrent nausea and vomiting. She was on TPN at home, and is using her own here. Also on IV medications/antibiotics at home. Prophylaxis: On enoxaparin and famotidine. Anemia: Secondary to cancer/chronic disease. 1 unit PRBCs transfused. Plan: Continue present antibiotics. Consider switching to Levaquin tomorrow if cultures negative. Continue other palliative treatments. Follow laboratory/ CBC. Follow x-ray intermittently. We will continue to address advance directive issues with the patient. Ongoing palliative care discussions are scheduled. 35 min of critical care time spent directly with the patient today. Discussed with the patient's significant other, hospitalist, nursing, and the ICU multi disciplinary team. Subjective: More short of breath this morning, hypoxemic and hypotensive. She thinks she threw up again at some point prior to this, may have aspirated? Objective: Vital Signs Temp Pulse Resp BP Pulse Ox 35.4 C L 91 16 127/76 H 93 02/23/18 10:00 02/23/18 11:30 02/23/18 11:30 02/23/18 11:30 02/23/18 11:30 Laboratory Results 02/23/18 05:40 02/22/18 05:01 02/22/18 02/23/18 02/24/18 05:59 05:59 05:59 Intake Total 2388 2432 Output Total 1125 2100 Balance 1263 332 PT 14.2 SEC (12.0-15.0) 02/21/18 12:10 INR 1.08 (0.83-1.16) 02/21/18 12:10 Laboratory Tests 02/22/18 02/23/18 05:01 11:16 POC ABG pH 7.32 L POC ABG pCO2 44 H POC ABG pO2 41 L POC ABG Total CO2 25 POC ABG O2 Sat 76 L POC ABG Base Excess -3.0 L POC Lactic Acid Arter 2.8 H Calcium 8.2 L Total Bilirubin 0.2 Albumin 2.1 L CXR: Increased infiltrates bilaterally, consistent with progression of aspiration verses congestive heart failure/pulmonary edema. Cardiac echo: Normal LV - right ventricular systolic pressure at 41. Physical Exam - Physical Exam General Appearance: alert, no apparent distress, cachetic, other (Resting comfortably in bed, sitting up, working on a pad or cell phone) EENT: PERRL/EOMI, other (Nasal cannula in place at 3 L: 93%) Neck: normal inspection (Mild jugular venous distension present) Respiratory: decreased breath sounds (Bilaterally, more so on the right compared to the left), rales (Fine rales anteriorly extending around back) Cardiac/Chest: regular rate, rhythm, No gallop Abdomen: distended, No normal bowel sounds (Decreased bowel tones), No non- tender (Mild tenderness present), No soft Pelvic Exam: other (No Mayorga cath) Skin: warm/dry, pallor Extremities: No pedal edema Neuro/Psych: no motor/sensory deficits (Moves all extremities equally, globally weak), No cognition abnormalities ICD10 Worksheet Patient Problems: Problems Problem Status Onset SBO (small bowel obstruction) Acute Ascites Acute Nausea and vomiting Acute Ascites, malignant Acute Cervical cancer Acute Intractable generalized abdominal pain Acute Partial small bowel obstruction Acute Abdominal pain Acute Hyponatremia Acute Obstruction of right ureter Acute Pneumonia Acute
[2018-02-23] MEDS: NS 1,000 ML IV SCH (14:45)
--- NOTE | 2018-02-23 16:43 | CPEKG ---
Test Reason : OPEN Blood Pressure : / mmHG Vent. Rate : 095 BPM Atrial Rate : 094 BPM P-R Int : 131 ms QRS Dur : 085 ms QT Int : 370 ms P-R-T Axes : 049 -11 019 degrees QTc Int : 465 ms Sinus rhythm Borderline T abnormalities, anterior leads Left atrial abnormality When compared with ECG of 02/21/2018 heart rate slower Confirmed by Taylor Lora [id number] on 02/23/2018 4:43:15 PM Referred By: Confirmed By:Taylor Lora
[2018-02-23] MEDS: PROGESTERONE TP SCH (20:13)
[2018-02-23] MEDS: TPN IV SCH (21:33)
[2018-02-24 01:02] VITALS: BP 85/49
--- NOTE | 2018-03-10 11:51 | GDS ---
DIAGNOSES: 1. Acute sepsis. 2. Acute hypoxemic respiratory failure. 3. Metastatic cervical cancer. 4. Neutropenia and immune compromise. 5. Anemia of malignancy. 6. Chronic small bowel obstruction from peritoneal metastases. 7. Ascites of malignancy. CONSULTATIONS: Fantasma Arce MD. PROCEDURES: CT angiography of chest and echocardiogram. HOSPITAL COURSE: The patient is a 67-year-old woman with long history of metastatic cancer with resu ltant bowel obstruction, inoperable, nonresponsive to chemotherapy. She has had many episodes of asp iration pneumonia. She has declined to remain n.p.o. and has continued to eat and drink at home. Justin lee is malnourished and weakened. She comes in at this time with acute pneumonia, shortness of breath, respiratory failure, hypoxemia, and acute sepsis. She was treated aggressively with antibiotics and pulmonary toilet as per her wishes. However, her condition continued to decline fairly rapidly here in the hospital. She became unresponsive and developed hypotension. Further discussion with her fa merritt ensued and it was elected to withdraw all supportive care. The patient in the hospital on the morning of February 24, 2018, at 2:17 a.m. CAUSE OF : Severe respiratory failure and sepsis from aspiration. Contributing causes: Metast atic cancer, immune suppression, and malnutrition. /[id number]/MODL
== END 2018-02-24 03:15 | disposition expired | DRG 871 ==
LOC: EDUNIT# → F2N 14:55
PROVIDERS: ADMIT Internal Medicine; ATTEND Internal Medicine
PROC: 30233N1 Transfusion of Nonautologous Red Blood Cells into Peripheral Vein, Percutaneous Approach (ICD-10-PCS; principal; 2018-02-22)
DX: A41.9 Sepsis, unspecified organism (principal); R65.21 Severe sepsis with septic shock; J69.0 Pneumonitis due to inhalation of food and vomit; J96.01 Acute respiratory failure with hypoxia; C78.2 Secondary malignant neoplasm of pleura; K56.609 Unspecified intestinal obstruction, unspecified as to partial versus complete obstruction; D70.3 Neutropenia due to infection; C53.9 Malignant neoplasm of cervix uteri, unspecified; E46 Unspecified protein-calorie malnutrition; Z68.1 Body mass index [BMI] 19.9 or less, adult; C78.6 Secondary malignant neoplasm of retroperitoneum and peritoneum; R18.0 Malignant ascites; R64 Cachexia; J81.1 Chronic pulmonary edema; C78.00 Secondary malignant neoplasm of unspecified lung; R94.31 Abnormal electrocardiogram [ECG] [EKG]; D63.0 Anemia in neoplastic disease; Z66 Do not resuscitate
CPT/HCPCS: 83605-PO; 96365; 97161-GP; G8978-GP-CJ; G8979-GP-CI; J0456; J0692; J0696; J1650; J3480; P9016; Q9967